=== PATIENT | female | born 1935 | race Caucasian/White ===

== ENCOUNTER → 2017-01-01 | Outpatient (CLI) | payer OTHER ==
[~2017-01-01] MED LIST: ANAS1TAB19 PO; AREDS PRESERVISION PO; ASPEC81 PO; ASPI81TA28 PO; CHOL100027 PO; CLTP PO; CYAN100T6 PO; CYAN1SUB6 UT; GLUC250C PO; GLUCCAP4 PO; LOSA50TA6 PO; MULT-190 PO; MULT-506 PO; NAPR250T2 PO; OYST500T47 PO; SIMV20TA5 PO
--- NOTE | 2017-01-01 15:19 | MAMMOGRAPHY REPORT ---
BILATERAL DIGITAL DIAGNOSTIC MAMMOGRAM TOMOSYNTHESIS WITH CAD AND TARGETED RIGHT ULTRASOUND: 01/01/2017 CLINICAL HISTORY: History of right breast cancer status post lumpectomy and radiation therapy approxi mately 5 years ago. The patient reports a palpable lump for the past 2 years, which she believes may be increased in size for the last few months. She had a fine-needle aspiration of the lump in the athology department December 2015 which yielded benign tissue without evidence of malignancy. TECHNIQUE: Breast tomosynthesis in addition to standard 2D mammography was performed. Current study was also evaluated with a Computer Aided Detection (CAD) system. Bilateral CC and MLO 2-D and tomosy nthesis images were obtained. COMPARISON: Comparison is made to exams dated: 01/30/2016 mammogram, 12/20/2015 mammogram, 01/27/2015 zheng mogram, 01/18/2014 mammogram, 01/25/2014 ultrasound, and 01/07/2013 mammogram - [facility]. BREAST COMPOSITION: There are scattered areas of fibroglandular density in both breasts. FINDINGS: A triangle marker melendez the site of the palpable lump in the right upper outer quadrant. There are no suspicious masses or other suspicious mammographic abnormalities seen in this region. T here are stable postsurgical changes in the right upper outer quadrant from prior lumpectomy. Additi onally, there is stable mild diffuse right breast skin thickening which is likely a sequela of prior radiation therapy. The remainder of both breasts are stable compared to prior exams, without suspicious masses, calcific ations, or areas of architectural distortion noted. Targeted ultrasound was performed of the area of the palpable lump pointed out by the patient. The l ump is a large area of the right breast extending from the 9 to 1:00 breast. No suspicious masses or other suspicious sonographic abnormalities are evident. There are post surgical changes in the righ t 10 to 11:00 breast at the lumpectomy bed. Additionally, there is mild diffuse hyperechogenicity of the breast parenchyma and mild diffuse right breast skin thickening in this region, which is likely a sequela of radiation therapy. IMPRESSION: ACR BI-RADS CATEGORY 2: BENIGN, TARGETED ULTRASOUND ACR BI-RADS CATEGORY 2: BENIGN No suspicious mammographic or sonographic abnormality at the site of the palpable right breast lump p ointed out by the patient. Given the lack of abnormality on imaging and given that a fine-needle asp iration was previously performed of the lump, it is likely benign and may represent evolving post marko atment changes. There is no mammographic or targeted sonographic evidence of malignancy. Recommend clinical follow-up for the palpable right breast lump; any decision to repeat a biopsy should be base d on clinical grounds. Otherwise, recommend routine bilateral screening mammograms in one year. The patient has been verbally notified of the results. Approximately 10% of breast cancers are not detected with mammography. A negative mammographic report should not delay biopsy if a clinically suggestive mass is present. Clari Golden M.D. ah/:01/01/2017 12:19:48 Reports Analyst: Denise GONSALEZ(Lucio)(M), [facility] letter sent: Normal 1/2 BI-RADS Code: ACR BI-RADS Category 2: Benign Ultrasound BI-RADS: ACR BI-RADS Category 2: Benign
== END | disposition home or self-care (01) ==
LOC: C.MAMM 10:02
PROVIDERS: ATTEND Family Medicine
DX: N63 Unspecified lump in breast (principal); Z85.3 Personal history of malignant neoplasm of breast; Z92.3 Personal history of irradiation

== ENCOUNTER 2017-01-19 18:13 | Emergency (ER) | payer OTHER ==
[~2017-01-19] VITALS: Ht 157.5 cm; Wt 73.8 kg
[~2017-01-19 18:13] MED LIST changes: -ASPI81TA28 PO; -CYAN1SUB6 UT; -GLUC250C PO; -MULT-190 PO; -MULT-506 PO; -NAPR250T2 PO; -OYST500T47 PO
[2017-01-19 18:16] VITALS: TEMP 36.6; Ht 157.5 cm; Wt 73.8 kg
--- NOTE | 2017-01-19 18:46 | EMERGENCY ROOM VISIT NOTE ---
History Report prepared by aNtaliia: Ning Veloz Under the Supervision of: Dr. Pierre Angeles D.O. First contact with patient: 18:22 Chief Complaint: HYPERTENSION Stated Complaint: LEFT EYE REDNESS, PAIN History of Present Illness The patient is an 81 year old female who presents to the Emergency Room with complaints of persistent left eye pain that began prior to arrival. She currently rates her discomfort as a 3/10 in severity. The patient states that one hour ago she was watching TV and began noticing left eye pain. She states that she noticed increased pain with pressing on her eyelid. The patient states that she looked in the mirror and found that her left eye was injected. She states that it additionally hurts to look to the right. The patient denies ever having this in the past. She states that she was outside today rearranging dried arrangements, but was not wearing gloves. The patient reports a slight headache and pressure in her neck. She denies any visual problems. The patient denies any history of glaucoma or ever being screened for it in the past. She reports a history of hypertension, high cholesterol, and breast cancer. The patient denies any nausea, vomiting, or pain or swelling in her lower extremities. She states that she does have a history of age related macular degeneration. Source of History: patient Onset: prior to arrival Position: eye (left) Symptom Intensity: 3/10 Timing: other (persistent) Modifying Factors (Worsening): other (pressing on eyelid) Associated Symptoms: + headache, + neck pain, No nausea, No vomiting Note: Associated Symptoms: injected left eye Review of Systems See HPI for pertinent positives & negatives. A total of 10 systems reviewed and were otherwise negative. Past Medical & Surgical Medical Problems: (1) Benign neoplasm of colon (2) Breast cancer (3) Dyslipidemia (4) Venous insufficiency Surgical Problems: (1) H/O colonoscopy (2) H/O esophagogastroduodenoscopy (3) H/O partial mastectomy (4) S/P appendectomy (5) S/p laparoscopy with fulguration of oviducts (6) S/P right oophorectomy (7) S/P tonsillectomy and adenoidectomy Family History FH: cancer FH: diabetes mellitus FH: hypertension FH: lung disease FH: seizures FHx: heart disease Social History Smoking Status: Never Smoker Alcohol Use: none Drug Use: none Marital Status: Housing Status: lives with family Occupation Status: employed Current/Historical Medications Scheduled Anastrozole (Arimidex), 1 MG PO DAILY Aspirin (Aspirin Ec), 81 MG PO DAILY Cholecalciferol (Vitamin D 1000 Unit), 1,000 INTER.UNIT PO DAILY Cyanocobalamin (B-12), 2,500 MCG UT DAILY Glucosamine-Chondroitin (Glucosamine/Chondroitin), 1 CAP PO BID Losartan Potassium (Cozaar), 50 MG PO DAILY Multivitamin (Multivitamin), 1 TAB PO DAILY Ocuvite Preservision (Ocuvite Preservision), 1 TAB PO DAILY Oyster Shell (Calcium), 500 MG PO DAILY Simvastatin (Zocor), 20 MG PO QPM Scheduled PRN Naproxen (Naprosyn), 250 MG PO BIDM PRN for Pain Allergies Coded Allergies: No Known Allergies (Verified , 10/09/15) Physical Exam Vital Signs Date Time Temp Pulse Resp B/P (MAP) Pulse Ox O2 Delivery O2 Flow Rate FiO2 01/19/17 19:45 70 16 169/89 98 01/19/17 18:16 36.6 78 18 193/109 97 Room Air 177/94 Physical Exam GENERAL: Patient is awake, alert, and in no acute distress. Patient is resting comfortably and showing no signs of anxiety EYES: The pupils are equal, round and reactive. No pain with pupil exam, significant chemosis and injection on lateral aspect of the left eye. EARS, NOSE, MOUTH AND THROAT: The nose is without any evidence of any deformity. Mucous membranes are moist tongue is midline NECK: The neck is nontender and supple. RESPIRATORY: Normal respiratory effort is noted there is no evidence of wheezing rhonchi or rales CARDIOVASCULAR: Regular rate and rhythm noted there no murmurs rubs or gallops normal S1 normal S2 GASTROINTESTINAL: The abdomen is soft. Bowel sounds are present in all quadrants. Abdomen is nontender MUSCULOSKELETAL/EXTREMITIES: There is no evidence of gross deformity full range of motion is noted in the hips and shoulders SKIN: There is no obvious evidence of any rash. There are no petechiae, pallor or cyanosis noted. NEUROLOGIC: Patient is awake alert and oriented x3 strength is symmetric patellar reflexes are 2+ bilaterally Medical Decision & Procedures Medications Administered Medications (Trade) Dose Ordered Sig/Jose Route Start Time Stop Time Status Last Admin Dose Admin Ciprofloxacin HCl (Ciloxan 0.3% Op Oint) 1 appln NOW ONCE OP 01/19/17 19:00 01/19/17 19:01 DC 01/19/17 19:00 1 APPLN Procedure Slit Lamp Examination Indication:left eye pain The left eye was prepped with topical proparacaine. Slit lamp examination was performed in the standard fashion. Cornea appeared clear. Anterior chamber clear. Lateral aspect of the left eye with significant Chemosis noted. No discharge present. Fluorescein examination performed and revealed no uptake on the cornea. No foreign bodies noted. Negative Luly sign. The patient tolerated the procedure well without complication. Puff thermometer revealed 18 for the right eye and left eye revealed 19, 22, and 25. ED Course 1825: The patient was evaluated in room B7. A complete history and physical examination were performed. 1851: I discussed the patients case with Dr. Peterson, Ophthalmology. He recommends an eye ointment and follow-up tomorrow. 1899: Ordered Ciprofloxacin HCl 1 appln OP. I reevaluated the patient and she is resting comfortably. I discussed the exam findings with her and I discussed the treatment plan. She verbalized complete understanding and agreement. She is ready to go home. Medical Decision Nursing notes reviewed. Differential diagnosis this patient could include chemical conjunctivitis allergic conjunctivitis infectious component foreign body glaucoma and other differential diagnoses were considered. The patient is an 81-year-old female who presented to the emergency department for an evaluation of pain in her left eye. The patient did not have proptosis. She does appear to have a physical exam consistent with a chemosis of the left eye. She was working outside today but does not remember any specific trauma or foreign body. Her exam did reveal an elevation in her intraocular pressure as well as significant chemosis on the lateral aspect of the left eye. I discussed her case with the on-call ground mixer. At this time he is recommended an eye ointment as well as follow-up in the office tomorrow for reevaluation. I did warn the patient that this could include her entire 5 by the time she wakes up tomorrow. She was also encouraged to try using ice pack. She was found have an elevated blood pressure but I think this could be situational. She was encouraged to continue all medications as prescribed and follow-up for blood pressure check with her family doctor soon as possible. Medication Reconcilliation Current Medication List: was personally reviewed by me Blood Pressure Screening Patient's blood pressure: Elevated blood pressure Blood pressure disposition: Referred to PCP Consults Time Called: 1841 Consulting Physician: Dr. Peterson, Ophthalmology Returned Call: 1851 I discussed the patients case with Dr. Peterson, Ophthalmology. He recommends an eye ointment and follow-up tomorrow. Impression Primary Impression: Conjunctivitis Additional Impressions: Left eye pain Chemosis Scribe Attestation The scribe's documentation has been prepared under my direction and personally reviewed by me in its entirety. I confirm that the note above accurately reflects all work, treatment, procedures, and medical decision making performed by me. Departure Information Dispostion Home / Self-Care Referrals Cheri Barakat M.D. (PCP) Blade Peterson D.O. Forms HOME CARE DOCUMENTATION FORM, IMPORTANT VISIT INFORMATION, WORK / SCHOOL INSTRUCTIONS Patient Instructions ED Conjunctivitis Nonspecific, [facility] Additional Instructions Call the ground mixer in the morning to schedule a follow-up appointment for tomorrow. Continue to use the eye ointment 3 times a day. Ask the ground mixer that he once he to stay on this medication because she will need a prescription. Continue all other medications as prescribed. Try using an ice pack to the left eye. Return to the emergency department immediately if symptoms change worsen or the need arises. Problem Qualifiers Primary Impression: Conjunctivitis Conjunctivitis type: unspecified Laterality: left Qualified Codes: H10.9 - Unspecified conjunctivitis Additional Impressions: Chemosis Laterality: left Qualified Codes: H11.422 - Conjunctival edema, left eye
[2017-01-19] MEDS ORDERED: CIPROFLOXACIN HCL 3.5 GM TUBE OP ONE (19:00)
[2017-01-19] MEDS ORDERED: ASPI81TA28 PO (19:10)
[2017-01-19] MEDS ORDERED: NAPR250T2 PO (19:11)
[2017-01-19] MEDS ORDERED: CYAN1SUB6 UT (19:11)
[2017-01-19] MEDS ORDERED: GLUC250C PO (19:11)
[2017-01-19] MEDS ORDERED: MULT-190 PO (19:11)
[2017-01-19] MEDS ORDERED: OYST500T47 PO (19:11)
[2017-01-19 19:45] VITALS: BP 169/89; PULSE 70; O2SAT 98
[2017-01-19] MEDS ORDERED: MULT-506 PO (20:44)
== END 2017-01-19 19:45 | disposition home or self-care (01) ==
LOC: C.EDB 18:15
DX: H10.9 Unspecified conjunctivitis (principal); H57.12 Ocular pain, left eye; H11.422 Conjunctival edema, left eye; I10 Essential (primary) hypertension; E78.00 Pure hypercholesterolemia, unspecified; Z85.3 Personal history of malignant neoplasm of breast; H35.30 Unspecified macular degeneration; E78.5 Hyperlipidemia, unspecified; I87.2 Venous insufficiency (chronic) (peripheral); Z79.82 Long term (current) use of aspirin; Z79.899 Other long term (current) drug therapy; Z80.9 Family history of malignant neoplasm, unspecified; Z83.3 Family history of diabetes mellitus; Z82.49 Family history of ischemic heart disease and other diseases of the circulatory system; Z83.6 Family history of other diseases of the respiratory system

== ENCOUNTER 2017-05-20 08:25 | Inpatient (IN) | payer OTHER ==
[2017-04-23 13:57] VITALS: BMI 29.0
--- NOTE | 2017-04-23 14:34 | PAT Medication Instructions ---
Service Date Apr 23, 2017. Current Home Medication List Alendronate Sodium (Fosamax), 1 TAB PO WK Aspirin (Aspirin Ec), 81 MG PO QPM Calcium Carbonate (Calcium), 1 TAB PO QPM Cholecalciferol (Vitamin D3), 1 TAB PO QPM Cyanocobalamin (Vitamin B-12), 1 TAB PO QPM Glucosamine-Chondroitin (Glucosamine/Chondroitin), 1 CAP PO QPM Losartan Potassium (Cozaar), 50 MG PO QPM Multivitamin (Multivitamin), 1 TAB PO QPM Naproxen (Naprosyn), 250 MG PO DAILY PRN for Pain Ocuvite Preservision (Ocuvite Preservision), 1 TAB PO QPM Simvastatin (Zocor), 20 MG PO QPM Medication Instructions For Your Scheduled Surgery - Hold the following medications 2 weeks prior to surgery: Glucosamine-Chondroitin (Glucosamine/Chondroitin), 1 CAP PO QPM - Continue as directed: Alendronate Sodium (Fosamax), 1 TAB PO WK - Hold the following medications the morning of surgery: Naproxen (Naprosyn), 250 MG PO DAILY PRN for Pain (otherwise okay to continue per surgeon) - Take the following medications as scheduled the night before surgery: Ocuvite Preservision (Ocuvite Preservision), 1 TAB PO QPM Simvastatin (Zocor), 20 MG PO QPM Multivitamin (Multivitamin), 1 TAB PO QPM Aspirin (Aspirin Ec), 81 MG PO QPM Calcium Carbonate (Calcium), 1 TAB PO QPM Cholecalciferol (Vitamin D3), 1 TAB PO QPM Cyanocobalamin (Vitamin B-12), 1 TAB PO QPM - Do not take the following medications the night before surgery: Losartan Potassium (Cozaar), 50 MG PO QPM *Nothing to eat or drink after midnight* If you have any questions please call us at [phone] or [phone] or [phone]
[2017-04-23 14:52] LABS: BASO % 0.1 %; BASO ABS # 0.01 K/uL (0-0.2); EOS % 2.9 %; EOS ABS # 0.23 K/uL (0-0.5); HEMATOCRIT 40.3 % (37-47); HEMOGLOBIN 13.7 g/dL (12.0-16.0); IG# 0.02 K/uL (0.00-0.02); LYMPH % 26.8 %; LYMPH ABS # 2.13 K/uL (1.2-3.4); MEAN CELL VOLUME 94.6 fL (80-100); MEAN CORPUSCULAR HEMOGLOBIN 32.2 pg (25-34); MEAN PLATELET VOLUME 10.3 fL (7.4-10.4); MONO % 7.3 %; MONO ABS # 0.58 K/uL (0.11-0.59); NEUT % 62.6 %; NEUT ABS # 4.98 K/uL (1.4-6.5); PLATELET COUNT 248 K/uL (130-400); RED CELL DISTRIBUTION WIDTH CV 12.2 % (11.5-14.5); RED CELL DISTRIBUTION WIDTH SD 41.4 fL (36.4-46.3); WHITE BLOOD COUNT 7.95 K/uL (4.8-10.8)
[2017-04-23 15:03] LABS: PTT PATIENT 26.4 SECONDS (21.0-31.0)
--- NOTE | 2017-04-23 15:14 | DIAGNOSTIC IMAGING REPORT ---
CHEST 2 VIEWS ROUTINE CLINICAL HISTORY: pat preoperative evaluation COMPARISON STUDY: 10/09/2015 FINDINGS: The bones soft tissues and hemidiaphragms are normal. The cardiomediastinal silhouette is normal. The lungs are clear. The pulmonary vasculature is normal. Fixed hiatal hernia IMPRESSION: Fixed lateral hernia. Otherwise negative chest. The above report was generated using voice recognition software. It may contain grammatical, syntax or spelling errors. Electronically signed by: Isac Rosen M.D. 04/23/2017 3:13 PM Dictated Date/Time: 04/23/2017 3:12 PM
[2017-04-23 15:32] LABS: CALCIUM 9.6 mg/dl (8.5-10.1); CREATININE 1.17 mg/dl (0.60-1.20); POTASSIUM 4.1 mmol/L (3.5-5.1)
--- NOTE | 2017-05-15 22:47 | HISTORY & PHYSICAL EXAMINATION ---
DATE OF ADMISSION: 05/20/2017 CHIEF COMPLAINT: Right hip pain. HISTORY OF PRESENT ILLNESS: The patient is an 82-year-old female who presents for surgical treatment of the right hip. She has a several year history of increasing right hip pain and discomfort that has gotten significantly worse over the past year. She describes mostly groin pain and thigh pain. This really started to limit her activities. She has trouble walking around the house due to her pain. Denies any back pain. No numbness. She takes Meloxicam with minimal relief. She intermittently uses a cane to get around. PAST MEDICAL HISTORY: 1. Hypertension. 2. Sleep apnea. 3. Hiatal hernia. 4. Mild obesity with BMI of 30. 5. Low back pain/sciatica. 6. Breast cancer status post lumpectomy without recurrence. PAST SURGICAL HISTORY: Include: 1. Tonsillectomy. 2. Appendectomy. 3. Right oophorectomy. 4. D&C. 5. Breast lumpectomy. ALLERGIES: None. CURRENT MEDICINES: Include: 1. Meloxicam once a day. 2. Zocor 20 mg. 3. Vitamin B12. 4. Arimidex 1 mg a day. 5. Ocuvite PreserVision. 6. Multivitamin. 7. Vitamin D. 8. Aspirin. 9. Calcium. SOCIAL HISTORY: An 82-year-old white female. Lives in [place]. She is . Three children. Rare alcohol intake. FAMILY HISTORY: Significant for heart disease, lung cancer, breast cancer, brain cancer, eye cancer, uterine cancer, skin cancer. REVIEW OF SYSTEMS: Negative for diabetes, neurologic problems, vascular problems, bleeding disorders. Denies any chest pain or shortness of breath. No history of DVT or PE. She does have a history of breast cancer, but in remission. PHYSICAL EXAMINATION: GENERAL: This is a pleasant elderly female. She looks to be in pretty good health. HEENT: Benign. NECK: Supple. No lymphadenopathy. LUNGS: Clear to auscultation. HEART: Regular rate and rhythm. ABDOMEN: Soft, nontender, nondistended. EXTREMITIES: Grossly neurovascularly intact except as follows: Examination of the right hip and leg reveals the patient walks with antalgic gait. Leg lengths clinically appear equal. She does have some significant pain with any type of hip motion. She can internally rotate to about 10 degrees. External rotation 25 degrees. Negative straight leg raise. X-RAYS: X-rays of the right hip were reviewed. It shows advanced right hip DJD. It has progressed significantly over the past year. Bone density looks good. She has osteophytes around the acetabulum. ASSESSMENT: An 82-year-old white female with advanced right hip degenerative joint disease that has gotten significantly worse over the past year both clinically and radiographically. She has failed conservative treatment and would like to have her right hip replaced. PLAN: We are going to proceed with right total hip replacement. The risks and benefits of this procedure were explained to the patient including but not limited to DVT, PE, , infection, neurologic injury, vascular injury, bleeding problem, pain, limited range of motion, stiffness, failure to relieve her symptoms, incomplete relief of symptoms, need for further surgery in the future, fracture, leg length inequality, nerve palsy, etc. The patient understands and desires to proceed. Informed consent was obtained. As far as discharge plans, she is hoping to go to rehab or a nursing home facility. Her is not in great health and probable not good clinical research assistant to help take care of her.
[2017-05-20] VITALS (19 sets, daily range): BP systolic 117–167; BP diastolic 69–96; PULSE 60–91; TEMP 36.2–37.1; O2SAT 93–100; Ht 157.5 cm; Wt 86.2 kg
[~2017-05-20] VITALS: Ht 157.5 cm; Wt 86.2 kg
[~2017-05-20 08:25] MED LIST changes: +ACETAMINOPHEN 500 MG TAB PO SCH; +ALEN70TA4 PO; -ANAS1TAB19 PO; -AREDS PRESERVISION PO; -ASPEC81 PO; +ASPI81TA28 PO; +BUPIVACAINE 0.5 % 5 MG/1 ML PF 10ML VIAL ONE; +BUPIVACAINE LIPOSOME 266 MG, BUPIVACAINE/EPINEPHRINE INJ 50 ML, SODIUM CHLORIDE 0.9% PF... INFIL SCH; +CALC-393 PO; +CEFAZOLIN 2000MG IV PUSH 10 ML IV SCH; -CHOL100027 PO; +CHOLCAP5 PO; -CLTP PO; -CYAN100T6 PO; +CYAN5000 PO; +FAMOTIDINE 20 MG TAB PO SCH; +GABAPENTIN 300 MG CAP PO SCH; +GLUC250C PO; -GLUCCAP4 PO; +LACTATED RINGER'S 1000ML 1,000 ML IV SCH; +LACTATED RINGER'S 1000ML 500 ML IV SCH; +LACTATED RINGER'S 1000ML IV SCH; +METOCLOPRAMIDE HCL 10 MG TAB PO SCH; +MULT-190 PO; +MULT-506 PO; +NAPR1TAB48 PO; +SCOPOLAMINE 1.5 MG TDSY TD SCH; +TRANEXAMIC ACID INJ 1,000 MG in SYRINGE 0 ML IV SCH
--- NOTE | 2017-05-20 08:39 | History & Physical Bridge Note ---
H&P Re-Evaluation Bridge Note: I have examined the patient, reviewed the History & Physical and in the interval since the performance of the History & Physical I have noted the following changes of clinical significance: No changes noted
[2017-05-20] MEDS ORDERED: FENTANYL CITRATE INJ 50 MCG/1 ML 2 ML VIAL ONE (09:47)
[2017-05-20] MEDS ORDERED: MIDAZOLAM HCL 1 MG/ML 2ML VIAL ONE (09:47)
[2017-05-20] MEDS ORDERED: PROPOFOL IV EMULSION 10 MG/ML 20 ML VIAL IV ONE (09:47)
[2017-05-20] MEDS ORDERED: LIDOCAINE HCL 2% 2 ML VIAL (20MG/ML) ONE (09:47)
[2017-05-20] MEDS ORDERED: BACITRACIN 50000 UNIT VIAL ONE (10:46)
[2017-05-20] MEDS ORDERED: BUPIVACAINE/EPINEPHRINE 0.5% MPF 1:200,000 30 ML VIAL ONE (10:46)
[2017-05-20] MEDS ORDERED: NALOXONE HCL INJ 1 MG in SODIUM CHLORIDE 0.9% 1000ML 1,000 ML IV PRN ×4 (11:07)
[2017-05-20] MEDS ORDERED: SODIUM CHLORIDE 0.9% 1000ML 1,000 ML IV PRN (11:07)
[2017-05-20] MEDS ORDERED: LACTATED RINGER'S 1000ML 500 ML IV PRN (11:07)
[2017-05-20] MEDS ORDERED: NALOXONE HCL INJ 0.08 MG in SYRINGE 1.8 ML IV PRN (11:07)
[2017-05-20] MEDS ORDERED: PHENYLEPHRINE 100MCG/ML 5ML SYR IV PRN (11:15)
[2017-05-20] MEDS ORDERED: NO NARCOTICS OR SEDATIVES SCH (11:15)
[2017-05-20] MEDS ORDERED: NALOXONE HCL 0.4 MG/1 ML VIAL/CARP IV PRN (11:15)
[2017-05-20] MEDS ORDERED: ATROPINE SULFATE 0.1 MG/ML 5ML SYR IV PRN (11:15)
[2017-05-20] MEDS ORDERED: KETOROLAC TROMETHAMINE 15 MG/ML VIAL IV. PRN ×2 (11:15)
[2017-05-20] MEDS ORDERED: PROMETHAZINE HCL INJ 12.5 MG in SODIUM CHLORIDE 0.9% 50ML 50 ML IV PRN (11:15)
[2017-05-20] MEDS ORDERED: NALBUPHINE HCL INJ 10 MG/ML 1ML AMP IV PRN (11:15)
[2017-05-20] MEDS ORDERED: MEPERIDINE HCL 25 MG/ML CARP IV PRN ×2 (11:15)
[2017-05-20] MEDS ORDERED: EpHEDrine SULFATE INJ 50 MG/ML AMP IV PRN ×2 (11:15)
[2017-05-20] MEDS ORDERED: MoRPHine SULFATE PF 1 MG/ML 10 ML AMP/VIAL EPI PRN (11:15)
[2017-05-20] MEDS ORDERED: ONDANSETRON INJ 2 MG/ML 2 ML VIAL IV PRN ×2 (11:15)
[2017-05-20] MEDS ORDERED: DiphenhydrAMINE HCL 50 MG/ML VIAL IV PRN (11:15)
--- NOTE | 2017-05-20 12:37 | [facility] Post Operative Brief Note ---
Immediate Operative Summary Operative Date May 20, 2017. Pre-Operative Diagnosis Advanced Right Hip Degenerative Joint Disease Post-Operative Diagnosis Advanced Right Hip Degenerative Joint Disease Procedure(s) Performed Right Total Hip Arthroplasty, Uncemented Surgeon Dr. Cesar Fong Supervisor Cab Surgeon(s) Maverick De La Vega PA-C Estimated Blood Loss 200ML Findings Right Hip DJD Fluids (cc crystalloids) 700 cc Specimens Permanent Solution: A. Right Femoral Head Drains None Anesthesia Spinal Complication(s) None Disposition Recovery Room / PACU
[2017-05-20] MEDS ORDERED: SILVER SULFADIAZINE 1% CR 50 GM JAR EXT PRN (12:45)
[2017-05-20] MEDS ORDERED: MAGNESIUM HYDROXIDE SUSP 30 ML UDC PO PRN (12:45)
[2017-05-20] MEDS ORDERED: ALUMINUM/MAGNESIUM/SIMETH (MAALOX MAX) 30 ML UDC PO PRN (12:45)
--- NOTE | 2017-05-20 13:07 | DIAGNOSTIC IMAGING REPORT ---
R PELVIS/UNILATERAL HIP 1 VIEW CLINICAL HISTORY: 82 years-old Female presenting with IN PACU - A/P PELVIS and LATERAL HIP INCLUDING ALL OF IMPLANT. TECHNIQUE: Single frontal view of the pelvis and crosstable lateral view of the right hip were obtained. COMPARISON: 02/21/2017. FINDINGS: There has been interval total right hip arthroplasty. No hardware complication. No malalignment. No periprosthetic fracture. Expected soft tissue emphysema and overlying skin rachna. Left hip joint congruent. Mild degenerative changes suggested in the left hip joint. Bony pelvis intact IMPRESSION: Expected postoperative appearance status post total right hip arthroplasty. Electronically signed by: Danial Mcclellan M.D. 05/20/2017 1:06 PM Dictated Date/Time: 05/20/2017 1:05 PM
--- NOTE | 2017-05-20 13:08 | OPERATIVE REPORT ---
DATE OF OPERATION: 05/20/2017 SURGEON: Dr. Cesar Fong. SNOUT PULLER: YAA Grace PREOPERATIVE DIAGNOSIS: Right hip degenerative joint disease. POSTOPERATIVE DIAGNOSIS: Same. PROCEDURE PERFORMED: Right uncemented total hip arthroplasty. COMPLICATIONS: None. ESTIMATED BLOOD LOSS: 200 mL FLUID REPLACEMENT: 1700 mL crystalloid fluid replacement. ANESTHESIA: Spinal. DRAINS: None. SPECIMENS: Right femoral head sent for pathology. OPERATIVE INDICATIONS: The patient is an 82-year-old fairly active, independent female who has had a several-year history of right hip pain and discomfort that has gotten significantly worse over the past year. She had mostly groin and thigh pain. She had failed conservative treatment. She elected to proceed with total hip arthroplasty. OPERATIVE FINDINGS: Operative findings revealed advanced right hip DJD. 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 Moderate-sized joint effusion. Some moderate synovitis. OPERATIVE IMPLANTS: Operative implants consisted of: 1. Biomet G7 size 50 mm acetabular shell. 2. An apex hole eliminator. 3. A 6.5 cancellous acetabular screws x1 of 35 mm in length. 4. A highly cross-linked polyethylene liner with 50 mm outer diameter and a 32 mm inner diameter. 5. A DePuy size 12 small AML femoral stem. 6. A +5/32 mm metal articular ball. OPERATIVE PROCEDURE: The patient was taken to the operating room, identified and placed on the operating table in the supine position. All contact areas were appropriately padded. IV antibiotics provided by anesthesia team. A spinal anesthetic had been implemented in the holding area. Caputo catheter was placed in the sterile fashion. The patient was then placed in the left lateral decubitus position. An axillary roll was placed. [facility] was used for positioning. Right hip and leg were then prepped and draped in the usual sterile fashion. A posterolateral approach to the right hip was then performed through a curvilinear incision centered over the greater trochanter. Sharp dissection was carried out through the subcutaneous tissues down to the level of the IT band and gluteal fascia. The IT band and gluteal fascia were then incised longitudinally in line with the skin incision. The underlying greater trochanteric bursa was excised. The piriformis and external rotators were tagged and taken off the posterior aspect of the femur. Great care was taken throughout the procedure to protect the sciatic nerve at all times. Posterior capsulotomy was then performed leaving a large flap for later repair. Hip was internally rotated and dislocated. Femoral neck osteotomy cut was made with the final cut about 11 mm above the lesser trochanter. Femoral head was removed and sent for pathology. The femur was retracted anteriorly. Attention was then drawn to the acetabulum. The acetabular labrum was excised. The pulvinar fat was excised. Sequential reaming of the acetabulum was then performed beginning with a size 43 and progressing up to a 49. A 50 mm Biomet G7 acetabular shell was then placed in about 40 degrees of lateral opening and 20 degrees of anteversion. It was fixed with a single 6.5 cancellous acetabular screw. I did try to place the second screw posteriorly, but could not get it seated down in the cup, so I just removed it. We got good purchase with the previous screw as well as interference fit with impaction. A trial liner was placed. Attention was then drawn to the femur. The proximal femur was entered with a cookie cutter followed by canal finder and lateralizing reamer. Sequential reaming of the femur was then performed beginning with a size 9 and progressing up to an 11.5. We got pretty good chatter at an 11.5. I broached beginning with a size 10.5 small broach and progressing up to a 12 small broach. We got pretty good fit with this. A calcar reamer was used to smoothen off the calcar. The hip was then trialed and the +5 articular ball provided full stability and full extension and external rotation and flexion to 90 degrees and internal rotation to 50+ degrees. I elected to use these implants. All trial implants were removed. An apex hole eliminator was placed. A highly cross-linked polyethylene liner was placed. A 12 small AML femoral stem was impacted in position. A +5/32 mm metal articular ball was placed. Hip was once again located and found to be stable. Attention was then drawn toward closing. The wound was irrigated with copious amounts of pulsatile lavage solution. I did inject locally with 60 mL of 0.5% Marcaine with epinephrine. The posterior capsule and external rotators were then repaired through drill holes and the posterior trochanter with #2 Ti-Cron suture. The IT band and gluteal fascia were then closed with #1 PDS suture in running fashion. The subcutaneous tissues were then closed in 2 layers with a deep layer 0 Vicryl suture, and the subcutaneous tissue with 2-0 Dexon suture in a buried interrupted fashion. The skin was then closed with skin rachna. Leg was then cleaned and dried and a sterile dressing of Xeroform, 4 x 4's, sterile ABD pad and foam tape was applied. The patient was then transferred to the recovery room in stable condition. The patient tolerated the procedure well with no complications. All needle and sponge counts were correct at the end of the operation. I attest to the content of the Intraoperative Record and any orders documented therein. Any exception s are noted below.
--- NOTE | 2017-05-20 13:22 | Anesthesiology Progress Note ---
Anesthesia Post Op Note Date & Time May 20, 2017 at 13:22 Vital Signs Pain Intensity: 0 Vital Signs Past 12 Hours Date Time Temp Pulse Resp B/P (MAP) Pulse Ox O2 Delivery O2 Flow Rate FiO2 05/20/17 13:15 83 21 146/60 97 Nasal Cannula 2 05/20/17 13:05 71 19 143/62 97 Nasal Cannula 2 05/20/17 12:55 74 18 140/59 100 Oxymask 10 05/20/17 12:45 68 16 151/64 100 Oxymask 10 05/20/17 12:38 36.6 73 20 82/63 98 Oxymask 10 05/20/17 08:47 78 16 167/96 95 Room Air Notes Mental Status: alert / awake / arousable, participated in evaluation Pt Amnestic to Procedure: Yes Nausea / Vomiting: adequately controlled Pain: adequately controlled Airway Patency, RR, SpO2: stable & adequate BP & HR: stable & adequate Hydration State: stable & adequate Anesthetic Complications: no major complications apparent
[2017-05-20] MEDS: D5W AND 1/2NSS + 20MEQ KCL 1,000 ML IV SCH (15:17)
[2017-05-20] MEDS: ACETAMINOPHEN 500 MG TAB PO SCH ×2 (15:18→21:43)
[2017-05-20] MEDS: CHECK SCOPOLAMINE PATCH PLACEMENT SCH ×2 (15:20→23:58)
[2017-05-20] MEDS: FERROUS GLUCONATE 324 MG TAB PO SCH (17:36)
[2017-05-20] MEDS ORDERED: TRANEXAMIC ACID INJ 1,000 MG in SODIUM CHLORIDE 0.9% 100ML 100 ML IV ONE (19:00)
[2017-05-20] MEDS: CEFAZOLIN IV 1,000 MG in SYRINGE 0 ML IV SCH (20:09)
[2017-05-20] MEDS: DOCUSATE SODIUM 100 MG CAP PO SCH ×2 (21:00→21:15)
[2017-05-20] MEDS: SENNA 8.6 MG TAB PO SCH ×2 (21:00→21:15)
[2017-05-20] MEDS ORDERED: CEROVITE ADV FORMULA TAB PO SCH (21:00)
[2017-05-20] MEDS: MULTIVITAMIN TAB PO SCH ×2 (21:00→21:14)
[2017-05-20] MEDS: CALCIUM 600MG + VIT D 400 IU TAB PO SCH ×2 (21:00→21:16)
[2017-05-20] MEDS: CHOLECALCIFEROL 1000 INTER.UNIT TAB PO SCH (21:14)
[2017-05-20] MEDS: SIMVASTATIN 20 MG TAB PO SCH (21:15)
[2017-05-20] MEDS: CYANOCOBALAMIN 2,500 MCG SUBL TAB PO SCH (21:15)
[2017-05-20] MEDS: ASPIRIN 325 MG ECTAB PO SCH (21:15)
[2017-05-20] MEDS: LOSARTAN POTASSIUM 50 MG TAB PO SCH (21:16)
[2017-05-20] MEDS ORDERED: ULT50X PO (21:38)
[2017-05-20] MEDS ORDERED: ACET-24 PO (21:38)
[2017-05-20] MEDS ORDERED: FRRG PO (21:38)
[2017-05-20] MEDS ORDERED: ASPEC325 PO (21:38)
--- NOTE | 2017-05-20 21:41 | Discharge Instructions ---
Discharge Instructions Date of Service May 20, 2017. Admission Reason for Admission: Right Hip Degenerative Joint Disease Discharge Discharge Diagnosis / Problem: Right Hip Replacement Discharge Goals Goal(s): Decrease discomfort, Improve function, Increase independence, Improve disease control, Therapeutic intervention Activity Recommendations Activity Level: Assistance Required (Total Hip Precautions) Therapies: Physical Therapy, Occupational Therapy Weightbearing Status: Right weightbearing . Additional Information Patient informed of condition: Yes Advance Directives: Yes DNR: No Level of Care: Acute Rehab Communicable Disease: No Prognosis: Improving Instructions / Follow-Up Instructions / Follow-Up ACTIVITY RECOMMENDATIONS: Physical Therapy: * Aggressive physical therapy is not usually needed. You will learn to take care of yourself safely and walk. * Follow the "Hip Precautions Instructions." * In some cases, the oncology social work at the hospital will arrange to have a therapist come to your house for the first couple of weeks to help you learn these skills. * You need to practice on your own or with the help of a family member as needed. * When you learn these skills, most of the therapy can be done on your own. Home Exercise: * You were shown a series of exercises in the hospital. Do these exercises three to four times each day including the exercises you were shown in physical therapy. Walking: * Get up and walk several times each day. For the first four weeks, try not to stand or walk for more than one hour at a time. If you do stand or walk for more than one hour, you will not hurt anything, but your leg will likely swell. * As you feel comfortable, you may change from the walker or crutches to a cane and then to independent walking. MEDICATIONS: New Medicine: * You will likely be taking one or more of these medicines: 1. Tramadol - Take, as directed, when you need it, every four to six hours to control your pain. 2. Iron Sulfate - Take three times each day for the month after surgery to help you replace the blood lost during surgery. 3. Aspirin - Thins your blood to lessen the chance of forming a blood clot. * The most common side effects of pain medicine and iron are nausea and constipation. If nausea or constipation is too much of a problem or if you have any questions about your new medicines or doses, call [facility] at . We will try to help you manage these issues. VERY IMPORTANT TO READ AND REVIEW" Pain: * The immediate post-operative period after hip replacement surgery is often quite painful. * You are given a prescription for pain medicine. You should take it, as directed, when you need it, especially before physical therapy and before going to bed. Pain that interferes with sleep is very common and can last several months. * You will likely need pain medicine for the first two to four weeks. It will not stop all of the pain. The pain will lessen and as you feel better, you may change to milder pain medicine such as Tylenol. * The most common side effects of pain medicine are nausea and constipation, so don't take more than you need. SPECIAL CARE INSTRUCTIONS: TEDs/Elastic Stockings: * The white elastic stockings help limit swelling and prevent blood clots from forming in your legs. The more you wear them, the more they work. * Wear them for six weeks. Prevention of Infection: * Take antibiotics one hour before any dental cleaning, dental work, urological procedure, gastrointestinal procedure or any invasive surgery in order to prevent your new joint from getting infected. * You may get the antibiotics from the doctor performing the procedure or you may call our office at before and we will call in a prescription to the pharmacy of your choice. Things to Watch For: * Drainage from the incision site that occurs more than one week after your surgery. * Severely increased leg pain or swelling. * Increased redness at the incision site. * Fever above 102 degrees Fahrenheit. * Unusual chest pain or shortness of breath. * Unusual pain or burning with urination. Call [facility] at with any of the above problems or if you have any questions about your medicines or recovery. FOLLOW UP VISIT: Make an appointment to see your doctor for approximately two weeks after surgery for a progress check and staple removal by calling the office at . Current Hospital Diet Patient's current hospital diet: Regular Diet Discharge Diet Recommended Diet: Regular Diet Procedures Procedures Performed: Right Total Hip Arthroplasty, Uncemented Pending Studies Studies pending at discharge: no Medical Emergencies . Who to Call and When: Medical Emergencies: If at any time you feel your situation is an emergency, please call [phone] immediately. . Non-Emergent Contact Non-Emergency issues call your: Surgeon . . "Provider Documentation" section prepared by Cesar Fong. . Core Measure Problem Core Measures: None
[2017-05-21] VITALS (9 sets, daily range): BP systolic 134–154; BP diastolic 73–80; PULSE 85–95; TEMP 37.2–37.5; O2SAT 91–100
--- NOTE | 2017-05-21 01:19 | NUR ---
ID: Pt is alert and oriented with periods of confusion. Pt on 2 L for hours of sleep.Diet is being tolerated. IVF infusing per MD order in the left AC. Dressing d/c/i. Abductor pillow in place. Caputo intact and patent draining clear yellow urine. Right limb restriction. Pt denies pain. Pt not OOB yet due to lethargy and confusion. Call delarosa within reach. Bed alarm on. Hourly rounding maintained. Discharge uncertain.
[2017-05-21] MEDS: D5W AND 1/2NSS + 20MEQ KCL 1,000 ML IV SCH ×2 (02:53→10:45)
[2017-05-21] MEDS ORDERED: HYDROmorphone INJ 0.5 MG/0.5 ML SYR IV PRN (03:00)
[2017-05-21] MEDS ORDERED: DC INTRASPINAL MORPHINE SCH (03:00)
[2017-05-21] MEDS ORDERED: TRAMADOL HCL 50 MG TAB PO PRN (03:00)
[2017-05-21] MEDS ORDERED: ZOLPIDEM TARTRATE 5 MG TAB PO PRN (03:00)
[2017-05-21] MEDS: CEFAZOLIN IV 1,000 MG in SYRINGE 0 ML IV SCH (04:19)
[2017-05-21 05:38] LABS: BASO % 0.1 %; BASO ABS # 0.01 K/uL (0-0.2); HEMATOCRIT 38.2 % (37-47); HEMOGLOBIN 12.6 g/dL (12.0-16.0); IG# 0.05 K/uL (0.00-0.02); LYMPH % 8.4 %; LYMPH ABS # 1.24 K/uL (1.2-3.4); MEAN CELL VOLUME 94.6 fL (80-100); MEAN CORPUSCULAR HEMOGLOBIN 31.2 pg (25-34); MEAN PLATELET VOLUME 10.5 fL (7.4-10.4); MONO % 7.6 %; MONO ABS # 1.12 K/uL (0.11-0.59); NEUT % 83.6 %; NEUT ABS # 12.31 K/uL (1.4-6.5); PLATELET COUNT 233 K/uL (130-400); RED CELL DISTRIBUTION WIDTH CV 12.4 % (11.5-14.5); RED CELL DISTRIBUTION WIDTH SD 42.6 fL (36.4-46.3); WHITE BLOOD COUNT 14.73 K/uL (4.8-10.8)
[2017-05-21 06:05] LABS: CALCIUM 8.6 mg/dl (8.5-10.1); CREATININE 1.03 mg/dl (0.60-1.20); POTASSIUM 4.6 mmol/L (3.5-5.1)
[2017-05-21] MEDS: ACETAMINOPHEN 500 MG TAB PO SCH ×3 (06:21→21:50)
[2017-05-21] MEDS: KETOROLAC TROMETHAMINE 15 MG/ML VIAL IV. SCH ×3 (06:21→17:52)
[2017-05-21] MEDS: ONDANSETRON INJ 2 MG/ML 2 ML VIAL IV PRN (06:28)
[2017-05-21] MEDS: CHECK SCOPOLAMINE PATCH PLACEMENT SCH ×2 (08:00→16:06)
[2017-05-21] MEDS: ASPIRIN 325 MG ECTAB PO SCH ×2 (08:34→20:50)
[2017-05-21] MEDS: DOCUSATE SODIUM 100 MG CAP PO SCH ×2 (08:34→20:50)
[2017-05-21] MEDS: PANTOprazole SOD 40 MG TAB PO SCH (08:34)
[2017-05-21] MEDS: FERROUS GLUCONATE 324 MG TAB PO SCH ×3 (08:34→17:51)
[2017-05-21] MEDS ORDERED: MULTIVITAMIN TAB PO SCH (09:00)
--- NOTE | 2017-05-21 12:22 | NUR ---
Case Management- Met with patient in room. Patient lives with her and grand daughter in a one story home with one step to enter. She is independent with adls using a bwalker and or a cane to ambulate and still drives. She reports she has a cleaning service coming in every other week. She reports she would like to go to [facility] on discharge referral made to [facility]. LYNETTE following
--- NOTE | 2017-05-21 16:30 | NUR ---
A: pt has not voided since barlow removal. Bladder scan done recently by Angie (ALUMINUM HYDROXIDE PROCESS OPERATOR) for 5ml. Dr. Fong made aware, no new orders. Instructed to encourage fluid intake.
--- NOTE | 2017-05-21 20:45 | NUR ---
A: Pt OOB to bathroom x 1 assist with a walker. While heading into the bathroom I noticed an intact blister on the pt's left buttocks. the area was wiped with a saline wipe, dressed with petroleum gauze, 4x4 and medipore. An alleven was also placed, turn and repo q2hr intervention, and patient was turned on left side.
[2017-05-21] MEDS: SENNA 8.6 MG TAB PO SCH (20:49)
[2017-05-21] MEDS: SIMVASTATIN 20 MG TAB PO SCH (20:49)
[2017-05-21] MEDS: MULTIVITAMIN TAB PO SCH (20:49)
[2017-05-21] MEDS: CHOLECALCIFEROL 1000 INTER.UNIT TAB PO SCH (20:50)
[2017-05-21] MEDS: CALCIUM 600MG + VIT D 400 IU TAB PO SCH (20:51)
[2017-05-21] MEDS: LOSARTAN POTASSIUM 50 MG TAB PO SCH (20:51)
[2017-05-21] MEDS: CYANOCOBALAMIN 2,500 MCG SUBL TAB PO SCH ×2 (20:52→21:01)
--- NOTE | 2017-05-21 22:08 | PROGRESS NOTE ---
DATE: 05/21/2017 SUBJECTIVE: An 82-year-old white female postop day 1 from right total hip replacement. She is doing well. Really not much in the way of pain. Therapy went well. No chest pain or shortness of breath. Not feeling dizzy or lightheaded. OBJECTIVE: VITAL SIGNS: Temperature 37.5. Vital signs stable. GENERAL: A pleasant elderly female. I had to wake her this evening when I visited her. EXTREMITIES: Examination of the right hip and leg reveals, her leg lengths appear equal. The dressing is clean, dry and intact. Thigh is soft and supple. She is neurologically intact. She can dorsiflex and plantar flex her foot appropriately. LABORATORY DATA: Hemoglobin 12.6, hematocrit 38.2. Electrolytes are stable. Creatinine is actually improved at 1.03. ASSESSMENT: An 82-year-old white female postop day 1 from right total hip replacement, doing well. Pain is controlled. She is neurologically intact. Hip is located. PLAN: 1. Deep venous thrombosis prophylaxis including thigh-high TEDs, SCDs, and aspirin twice a day. 2. PT/OT. Weightbearing as tolerated. Right total hip protocol. 3. Pain control. Doing well with current pain regimen. We are going to try and limit narcotics to avoid issues with confusion. 4. Disposition: She is hoping to be discharged to rehab. Social service is working on this.
[2017-05-22] MEDS: KETOROLAC TROMETHAMINE 15 MG/ML VIAL IV. SCH ×2 (01:10→05:18)
--- NOTE | 2017-05-22 02:08 | NUR ---
ID: Pt is alert and oriented on RA. Diet is being tolerated. SLin the left AC. Dressing changed,rachna, well approximated and d/c/i. Abductor pillow in place. Voiding in the toilet without difficulty. Right limb restriction. Pt denies pain. Call delarosa within reach. Bed alarm on. Hourly rounding maintained. Discharge uncertain.
[2017-05-22] MEDS: ONDANSETRON INJ 2 MG/ML 2 ML VIAL IV PRN ×2 (03:14→21:50)
[2017-05-22] MEDS: ACETAMINOPHEN 500 MG TAB PO SCH ×3 (05:18→21:43)
[2017-05-22] MEDS: METOCLOPRAMIDE HCL INJ 5 MG/ML 2 ML VIAL IV PRN (06:35)
[2017-05-22] MEDS ORDERED: NURSING VERBAL MED ORDER ONE (07:15)
[2017-05-22] MEDS ORDERED: PROMETHAZINE HCL INJ 25 MG in SODIUM CHLORIDE 0.9% 50ML 50 ML IV PRN (07:30)
[2017-05-22 07:40] LABS: BASO % 0.1 %; BASO ABS # 0.02 K/uL (0-0.2); EOS % 0.2 %; EOS ABS # 0.03 K/uL (0-0.5); HEMATOCRIT 34.7 % (37-47); HEMOGLOBIN 11.6 g/dL (12.0-16.0); LYMPH % 6.2 %; LYMPH ABS # 1.12 K/uL (1.2-3.4); MEAN CELL VOLUME 95.3 fL (80-100); MEAN CORPUSCULAR HEMOGLOBIN 31.9 pg (25-34); MEAN CORPUSCULAR HGB CONC 33.4 g/dl (32-36); MEAN PLATELET VOLUME 10.8 fL (7.4-10.4); MONO % 5.8 %; MONO ABS # 1.05 K/uL (0.11-0.59); NEUT % 87.1 %; NEUT ABS # 15.69 K/uL (1.4-6.5); PLATELET COUNT 206 K/uL (130-400); RED CELL DISTRIBUTION WIDTH CV 12.3 % (11.5-14.5); RED CELL DISTRIBUTION WIDTH SD 42.5 fL (36.4-46.3); WHITE BLOOD COUNT 18.01 K/uL (4.8-10.8)
[2017-05-22 07:50] VITALS: BP 163/74; PULSE 89; TEMP 36.5; O2SAT 95
[2017-05-22] MEDS: CHECK SCOPOLAMINE PATCH PLACEMENT SCH ×4 (07:51→23:54)
[2017-05-22] MEDS: PANTOprazole SOD 40 MG TAB PO SCH (07:52)
--- NOTE | 2017-05-22 08:03 | PROGRESS NOTE ---
DATE: 05/22/2017 DATE: 05/22/2017 SUBJECTIVE: An 82-year-old white female postop day 2 from right total hip replacement. She has been nauseated overnight. She did get a dose of Dilaudid last evening. She apparently had some emesis as well. No chest pain or shortness of breath. Not feeling dizzy or lightheaded. OBJECTIVE: VITAL SIGNS: Temperature 37.3. Vital signs stable. GENERAL: Reveals a pleasant elderly female. She was walking to the bathroom this morning when I visited with her and looked pretty comfortable. She was doing pretty well walking. LUNGS: Clear to auscultation. HEART: Regular rate and rhythm. ABDOMEN: Soft. There is no tenderness to palpation. She does have some bowel sounds. EXTREMITIES: Examination of the right hip reveals the dressing to be clean, dry and intact. Hip is located. She is neurologically intact. LABORATORY DATA: Hemoglobin is 11.6. Hematocrit 34.7. White cell count 18.01. Electrolytes are pending. ASSESSMENT: An 82-year-old white female postop day 2 from right total hip replacement, doing pretty well. She has had some emesis, likely related to her pain medicine. Her hemoglobin is stable. PLAN: 1. DVT prophylaxis including thigh high TEDs, SCDs, and aspirin twice a day. 2. PT, OT. Weightbearing as tolerated. Right total hip protocol. 3. Pain control. We are going to hold her IV medicines to control nausea. Will stick to Tylenol. 4. Nausea/emesis. We are going to hold her Dilaudid and try and limit tramadol as well and just stick with Tylenol. 5. Disposition. She is hoping to go to rehab. Rehab request and authorization are pending.
[2017-05-22 08:08] LABS: ALBUMIN 2.7 gm/dl (3.4-5.0); CALCIUM 8.9 mg/dl (8.5-10.1); CREATININE 1.42 mg/dl (0.60-1.20); POTASSIUM 4.7 mmol/L (3.5-5.1)
[2017-05-22 08:13] LABS: TOTAL PROTEIN 5.9 gm/dl (6.4-8.2)
[2017-05-22] MEDS: ASPIRIN 325 MG ECTAB PO SCH ×2 (08:55→21:42)
[2017-05-22] MEDS: DOCUSATE SODIUM 100 MG CAP PO SCH ×2 (08:56→21:43)
--- NOTE | 2017-05-22 10:38 | NUR ---
*Disregard my note timed for 1038 today; this note was documented on wrong patient.
--- NOTE | 2017-05-22 10:38 | NUR ---
ID: Room air. Saline locked. Prevena Wound Vac dressing intact, operating properly; 4x4 and OpSite to site of previous drain is dry and intact. Patient ambulates with use of wheeled walker independently. Patient denies need for narcotic pain medication this a.m. Discharge plans: home with [facility] today. Addendum: 05/22/17 at 1042 by Heide Brito RN *Disregard this note*Documented on wrong patient.
--- NOTE | 2017-05-22 10:54 | Clinical Documentation Query ---
HARITHA Callahan : CLINICAL DOCUMENTATION QUERY Patient is an 82 year old female who on 05/20 underwent right JAYJAY. No history of CKD. BUN and creatinine yesterday were 23 mg/dl and 1.03 mg/dl. This a.m., values were 40 mg/dl and 1.42 mg/dl. GFR declined by 32%. Patient to be monitored with follow up chemistry panel in a.m. In your clinical opinion is this patient being managed for: ( ) Acute kidney failure (this is NOT a complication of care) ( ) Not Agree ( x ) Other explanation of clinical findings (Please Explain) Impaired kidney function secondary to hypovolemia, dehydration, and blood loss. ( ) Unable to determine (Please Define) ( ) Need to Discuss The medical record reflects the following clinical findings, treatment, and risk factors. Clinical Indicators: As above Treatment:Patient to be monitored with follow up chemistry panel in a.m. Risk Factors: Surgery, age Please clarify and document your clinical opinion in the progress notes and discharge summary. Terms such as "probable", "suspected", "likely", "questionable", "possible", or "still to be ruled out" are acceptable. IF IN AGREEMENT, YOU MUST DOCUMENT ABOVE DIAGNOSTIC STATEMENT IN DAILY PROGRESS NOTES AND DISCHARGE SUMMARY. This document is not part of the patient's record. Thank You, Kory Koo RN [phone]
[2017-05-22 11:47] VITALS: O2SAT 94
[2017-05-22 14:42] VITALS: BP 132/60; PULSE 88; TEMP 36.9; O2SAT 92
[2017-05-22] MEDS: BISACODYL 10 MG SUPP PR PRN (20:04)
[2017-05-22] MEDS: CYANOCOBALAMIN 2,500 MCG SUBL TAB PO SCH (21:40)
[2017-05-22] MEDS: CHOLECALCIFEROL 1000 INTER.UNIT TAB PO SCH (21:40)
[2017-05-22] MEDS: MULTIVITAMIN TAB PO SCH (21:40)
[2017-05-22] MEDS: CALCIUM 600MG + VIT D 400 IU TAB PO SCH (21:40)
[2017-05-22] MEDS: LOSARTAN POTASSIUM 50 MG TAB PO SCH (21:42)
[2017-05-22] MEDS: SIMVASTATIN 20 MG TAB PO SCH (21:42)
[2017-05-22] MEDS: SENNA 8.6 MG TAB PO SCH (21:43)
[2017-05-22 23:04] VITALS: BP 102/66; PULSE 81; TEMP 36.6; O2SAT 92
[2017-05-23] VITALS (7 sets, daily range): BP systolic 100–123; BP diastolic 61–75; PULSE 74–85; TEMP 36.5–37; O2SAT 90–97
[2017-05-23] MEDS ORDERED: PANTOprazole INJ 80 MG in DEXTROSE 5% 100ML IV STA (02:12)
[2017-05-23] MEDS ORDERED: BISACODYL 10 MG SUPP PR PRN (02:15)
[2017-05-23] MEDS: D5W AND NSS 1,000 ML IV SCH ×2 (02:29→14:24)
[2017-05-23] MEDS: PANTOprazole INJ 40 MG in DEXTROSE 5% 100ML IV SCH ×5 (03:07→22:58)
[2017-05-23] MEDS: METOCLOPRAMIDE HCL INJ 5 MG/ML 2 ML VIAL IV PRN (03:10)
--- NOTE | 2017-05-23 03:27 | NUR ---
ID: Pt is alert and oriented on RA. Pt is NPO. IVF infusing per MD order in the left anterior forearm. Dressing d/c/i. Abductor pillow in place. Voiding in the toilet without difficulty. Pt has had 400ml dark emesis so far this shift. Provider called, Anil consulted. Right limb restriction. Pt denies pain. Call delarosa within reach. Hourly rounding maintained. Discharge to [facility] when medically appropriate.
[2017-05-23] MEDS: ONDANSETRON INJ 2 MG/ML 2 ML VIAL IV PRN (05:36)
[2017-05-23] MEDS: ACETAMINOPHEN 500 MG TAB PO SCH ×4 (05:53→21:28)
--- NOTE | 2017-05-23 07:38 | DIAGNOSTIC IMAGING REPORT ---
KUB CLINICAL HISTORY: r/o ileus, obstruction COMPARISON STUDY: CT of the abdomen and pelvis October 09, 2015. FINDINGS: Right hip arthroplasty is partially imaged. The bowel gas pattern is normal. There is mild to moderate distention of the stomach. Visualized portions of the lung bases demonstrate apparent bilateral pleural effusions with bibasilar opacities. IMPRESSION: 1. Normal bowel gas pattern. No evidence for a bowel obstruction. 2. Mild to moderate distention of the stomach. 3. Suspected bilateral pleural effusions and bibasilar airspace opacities. Electronically signed by: Denny Bates M.D. 05/23/2017 7:36 AM Dictated Date/Time: 05/23/2017 7:35 AM
--- NOTE | 2017-05-23 07:59 | CONSULTATION REPORT ---
DATE OF CONSULTATION: 05/23/2017 DATE OF CONSULTATION: 05/23/2017 TIME: 2:23 a.m. CONSULTING PHYSICIAN: Dr. Fong. REASON FOR CONSULTATION: Possible upper gastrointestinal bleed. HISTORY OF PRESENT ILLNESS: The patient is an 82-year-old female with a history of hypertension, dyslipidemia, breast cancer who presented to the hospital for right hip arthroplasty. The patient underwent a right uncemented total hip arthroplasty by Dr. Cesar Fong under spinal anesthesia on 05/20/2017. Estimated blood loss 200 mL. Apparently, the patient had multiple episodes of emesis yesterday consisting of black liquid vomitus, three episodes of which liquid to 0 episodes of which were noted to be black. Her hemoglobin has decreased from 12.6 to 11.6 this morning. This evening, the patient had another episode of loose black liquid vomitus noted by the RN. Also she has had no bowel movement and minimal flatus since the surgery. On my exam, the patient is resting in bed, awake, alert, oriented x3, not in distress, very pleasant. She has had antiasthmatic and nausea is improving. She denies having any abdominal pain. Only reports minimal flatus, no bowel movement since the time of surgery. She denies having any history of ulcers in the past or GI bleeding in the past, but does report to take aspirin daily and naproxen for arthritic pains. She denies having any abdominal pain. Denies shortness of breath, palpitations, dizziness. No other symptoms noted. REVIEW OF SYSTEMS: Ten systems reviewed and negative except for the ones mentioned above. PAST MEDICAL HISTORY: Hypertension, dyslipidemia, breast cancer. MEDICATIONS: Losartan 50 mg daily, aspirin 81 mg daily, naproxen p.r.n., simvastatin 20 mg daily, Arimidex 1 mg daily. PAST SURGICAL HISTORY: The patient has a history of appendectomy, colonoscopy 05/14/2015, mastectomy, removal of ovaries, removal of tonsils, EGD in 2005 showing hiatal hernia, Schatzki's ring negative for H. pylori. PERSONAL AND SOCIAL HISTORY: She is . Denies smoking. Denies alcohol. FAMILY HISTORY: Cancer in brother, sister, father and uncle. Stroke mother. PHYSICAL EXAMINATION: VITAL SIGNS: Blood pressure 114/67, heart rate of 85, temperature 36.6, respiratory rate 14, 90% on room air. GENERAL: The patient is awake, alert, oriented x3, not in distress, no accessory muscle use. HEAD AND NECK: Atraumatic and normocephalic. Normal pupils. Full EOMs. No icterus. [place] conjunctivae. EARS, NOSE, THROAT: Grossly normal. NECK: No JVD, no lymphadenopathy or thyromegaly. HEART: Normal rate. Regular rhythm with S1 and S2. No murmurs. LUNGS: Clear breath sounds bilaterally. No rales or wheezes. ABDOMEN: Mildly distended, hyperactive bowel sounds, soft, nontender. EXTREMITIES: No pedal edema. No rashes noted. NEUROLOGIC EXAMINATION: No gross focal motor or sensory deficits. LABORATORY DATA: White count this morning is 18.0, hemoglobin 11.6, platelet count is 206. Chemistry: Sodium 135, potassium 4.7, BUN is 14, creatinine is 1.42, random glucose 130, calcium is 8.9, AST 67, ALT 36. INR is 1.0. EKG as of 04/23/2017 showing heart rate of 72, normal sinus rhythm, no signs of acute ischemia or infarct. ASSESSMENT AND PLAN: This is a very pleasant 82-year-old female who has a history of hypertension, dyslipidemia, postop day #3 status post right hip arthroplasty, now presenting with possible upper gastrointestinal bleed. 1. Possible upper gastrointestinal bleed. Risk factors include aspirin daily, which has now been increased to 325 b.i.d. for the past 2 days. The patient's last EGD was in 2005 showed hiatal hernia and Schatzki's ring per records. At this point, upper GI bleed may be secondary to gastritis, esophagitis with multiple emesis or peptic ulcer disease. We will obviously hold aspirin for the meantime and other NSAIDs and anticoagulation. We will keep patient n.p.o., provide her with IV fluids and also start Protonix drip. H&H will be checked q. 6 hours and GI consultation will be placed with Dr. Balderrama for possible EGD. 2. Nausea, vomiting, constipation, rule out ileus versus obstruction. Physical examination reveals mild distention. Hypoactive bowel sounds. Will start with KUB to rule these out. For now, the patient will be kept n.p.o. except medications and some sips of water. Continue bowel regimen and will add Dulcolax suppository. 3. Acute renal failure. Creatinine is noted to be 1.4 from 1.03. Will hold losartan. We will give the patient IV fluids. We will continue to monitor creatinine. As mentioned, avoid NSAIDs and any nephrotoxic agents. 4. Hypertension, stable, actually on the lower side. We will hold losartan and monitor for now. 5. Dyslipidemia. Hold simvastatin until GI symptoms resolved. 6. History of breast cancer, currently on Arimidex continue. 7. Deep venous thrombosis prophylaxis. We will have to hold aspirin and other anticoagulation until GI bleed is ruled out. Recommend SCDs for the meantime and early ambulation. Thank you for this consultation. We are going to follow the patient closely with you. The patient will be followed starting tomorrow by Dr. Leena Villanueva. Please do not hesitate to contact any [facility] hospitalist if you have any questions. We appreciate consultation. VANNA
[2017-05-23 08:04] LABS: HEMATOCRIT 31.4 % (37-47); HEMOGLOBIN 10.7 g/dL (12.0-16.0)
[2017-05-23] MEDS: DOCUSATE SODIUM 100 MG CAP PO SCH ×2 (08:34→21:27)
[2017-05-23 08:35] LABS: CALCIUM 9.3 mg/dl (8.5-10.1); CREATININE 1.03 mg/dl (0.60-1.20)
--- NOTE | 2017-05-23 10:43 | NUR ---
Case Management: Met with pt at bedside. Discharge plan is for pt to go to [facility] when medically stable. Pt states her would likely transport her on discharge. She will decide mode of transport on day of discharge. Case Management to follow.
--- NOTE | 2017-05-23 11:57 | Gastrointestinal Consultation ---
Gastrointestinal Consultation Date of Consultation: May 23, 2017 Attending Physician: Raphael Vasquez Consulting Physician: Pierre Hinojosa Reason for Consultation: Possible UGI bleed History of Present Illness Patient is a 82 year old female who is s/p R total hip arthroplasty on . GI consulted as pt was noted to have n/v, and multiple emesis w black liquid yesterday. Hgb dropped from 12.6 to 10.7. BUN iain to 40s. She didn't have any melena episode. On exam today she has epigastric to RUQ area tenderness. She hasn't vomited since last night. She had been on ASA 325mg BID since her surgery. No other NSAIDs. Her last EGD was in 2005 - Schatzski's ring , hiatal hernia, erythematous gastro/duodenopathy. Past Medical/Surgical History Medical Problems: (1) Abdominal pain, left upper quadrant Status: Acute (2) Chemosis Status: Acute (3) Conjunctivitis Status: Acute (4) Hypoxia Status: Acute (5) Left eye pain Status: Acute (6) Pneumonia Status: Acute Past Medical History: Hypertension, dyslipidemia, breast cancer. Past Surgical History: As above;appendectomy, mastectomy, removal of ovaries, removal of tonsils Family History FH: cancer FH: diabetes mellitus FH: hypertension FH: lung disease FH: seizures FHx: heart disease Social History Smoking Status: Never Smoker Alcohol Use: none Drug Use: none Marital Status: Housing Status: lives with family Occupation Status: employed Allergies Coded Allergies: No Known Allergies (Verified , 10/09/15) Current Medications Home Meds and Scripts Medications Dose Route/Sig Max Daily Dose Days Date Category Dose Instructions Tramadol HCl 50 Mg Tab 50-100 Mg PO Q6H PRN 30 05/20/17 Rx Take as needed for Pain. Aspirin 325 Mg Ectab 325 Mg PO BID 45 05/20/17 Rx Take to prevent blood clots. Sb Non-Aspirin Extra Stre (Acetaminophen) 500 Mg Tab 1,000 Mg PO Q8 30 05/20/17 Rx Take 3 times per day to lessen pain. Ferrous Gluconate 324 Mg Tab 324 Mg PO BIDM 30 05/20/17 Rx Take to restore blood count. Fosamax (Alendronate Sodium) 70 Mg Tab 1 Tab PO WK 28 04/23/17 Reported Vitamin B-12 (Cyanocobalamin) 5,000 Mcg Sub 1 Tab PO QPM 04/23/17 Reported Calcium (Calcium Carbonate) 600 Mg Tab 1 Tab PO QPM 04/23/17 Reported Vitamin D3 (Cholecalciferol) 5,000 Unit Cap 1 Tab PO QPM 04/23/17 Reported Naprosyn (Naproxen) 250 Mg Tab 250 Mg PO DAILY PRN 01/19/17 Reported Ocuvite Preservision (Multivitamins/Minerals) 1 Tab Tab 1 Tab PO QPM 01/19/17 Reported Glucosamine/Chondroitin (Glucosamine-Chondroitin) 1 Cap Cap 1 Cap PO QPM 01/19/17 Reported Aspirin Ec (Aspirin) 81 Mg Tab 81 Mg PO QPM 01/19/17 Reported Cozaar (Losartan Potassium) 50 Mg Tab 50 Mg PO QPM 12/05/15 Reported Zocor (Simvastatin) 20 Mg Tab 20 Mg PO QPM 04/03/12 Reported Multivitamin (Multivitamins) Tab 1 Tab PO QPM 03/16/11 Reported Review of Systems Constitutional: + weakness, No fever Respiratory: No cough, No shortness of breath Cardiac: No chest pain Abdomen: + see HPI, + nausea, + vomiting, No pain Physical Exam Date Time Temp Pulse Resp B/P (MAP) Pulse Ox O2 Delivery O2 Flow Rate FiO2 05/23/17 07:36 Room Air 05/23/17 07:15 36.9 80 16 109/69 (82) 92 Room Air 05/23/17 01:39 36.6 85 14 114/67 (83) 90 Room Air 05/22/17 23:45 Room Air 05/22/17 23:04 36.6 81 14 102/66 (78) 92 Room Air 05/22/17 15:37 Room Air 05/22/17 14:42 36.9 88 18 132/60 (84) 92 Room Air General Appearance: WD/WN, no apparent distress Eyes: normal inspection, PERRL, EOMI Neck: supple, no JVD, trachea midline Respiratory/Chest: normal breath sounds, no respiratory distress, no accessory muscle use Cardiovascular: regular rate, rhythm, no gallop, no murmur Abdomen: normal bowel sounds, soft, + tenderness (RUQ/epigastric ) Extremities: normal inspection, no pedal edema, no calf tenderness Neurologic/Psych: alert, normal mood/affect, oriented x 3 Skin: normal color, no jaundice, no rash Laboratory Results Last 24 Hours Test 05/23/17 02:21 05/23/17 07:57 Hemoglobin 11.0 g/dL 10.7 g/dL Hematocrit 32.0 % 31.4 % Sodium Level 133 mmol/L Potassium Level 4.0 mmol/L Chloride Level 101 mmol/L Carbon Dioxide Level 27 mmol/L Anion Gap 5.0 mmol/L Blood Urea Nitrogen 35 mg/dl Creatinine 1.03 mg/dl Est Creatinine Clear Calc Drug Dose 40.1 ml/min Estimated GFR () 59.0 Estimated GFR (Non- 50.9 BUN/Creatinine Ratio 33.6 Random Glucose 142 mg/dl Calcium Level 9.3 mg/dl Impression Patient is a 82 year old female s/p R total hip arthroplasty noted to have n/v, and several vomitus of black liquid yesterday. Hgb decreasing, BUN did rise. No signs of melena. She had been on ASA 325mg BID post op. Hx of Schatzki ring, hiatal hernia, erythematous gastro/duodenopathy in EGD 2005. Plan - NPO for EGD eval by Dr. Hinojosa today - PPI bolus and gtt - Will give further recs after EGD is completed today - Monitor H/H and transfuse prn ATTESTATION: I have performed a history and physical examination of this patient and reviewed the electronic record. Specifically, EGD showed a very large hiatal hernia, gastritis with ulceration. I have discussed the case with JAMIL Woods. The above note reflects my findings, conclusions, and recommendations. Pierre Hinojosa MD
[2017-05-23] MEDS ORDERED: ATROPINE SULFATE 0.1 MG/ML 5ML SYR IV PRN (12:15)
[2017-05-23] MEDS ORDERED: FENTANYL CITRATE INJ 50 MCG/1 ML 2 ML VIAL IV PRN (12:15)
[2017-05-23] MEDS ORDERED: ONDANSETRON INJ 2 MG/ML 2 ML VIAL IV PRN (12:15)
[2017-05-23] MEDS ORDERED: EpHEDrine SULFATE INJ 50 MG/ML AMP IV PRN (12:15)
[2017-05-23] MEDS ORDERED: SUCCINYLCHOLINE CHLORIDE 20 MG/ML 10 ML VIAL IV ONE (12:19)
[2017-05-23] MEDS ORDERED: LIDOCAINE HCL 2% 2 ML VIAL (20MG/ML) ONE (12:19)
[2017-05-23] MEDS ORDERED: PROPOFOL IV EMULSION 10 MG/ML 20 ML VIAL IV ONE (12:19)
--- NOTE | 2017-05-23 12:24 | Progress Note ---
Progress Note Date of Service May 23, 2017. Progress Note DATE: 05/22/2017 DATE: 05/22/2017 SUBJECTIVE: An 82-year-old white female postop day 3 from right total hip replacement. She has been nauseated overnight, and has had several bout of a black coloration in her emesis. GI has been consulted and the plan is to perform an upper Endoscopy to evaluate the cause of the black emesis. She has a feeling a constantly having to vomit in her chest. She denies any chest pain, or shortness of breath. OBJECTIVE: VITAL SIGNS: Vital signs stable. GENERAL: Reveals a pleasant elderly female. She was laying in bed comfortably. LUNGS: Clear to auscultation. HEART: Regular rate and rhythm. ABDOMEN: Soft. There is no tenderness to palpation. She does have some bowel sounds. EXTREMITIES: Examination of the right hip reveals the dressing to be clean, dry and intact. Hip is located. She is neurologically intact. LABORATORY DATA: Hemoglobin is 10.7. Hematocrit 31.4. Her H&H continue to trend down. ASSESSMENT: An 82-year-old white female postop day 3 from right total hip replacement, doing pretty well. She has had some emesis, with a black coloration. GI has been consulted and are performing an upper Endoscopy today. Her H&H are stable but have trended down slightly. PLAN: 1. DVT prophylaxis including thigh high TEDs, SCDs, and aspirin twice a day, unless aspirin is cause of black emesis. If that is the cause, we will need to provide her with another blood thinner for DVT prophylaxis. 2. PT, OT. Weightbearing as tolerated. Right total hip protocol. 3. Pain control. We are going to hold her IV medicines to control nausea. Will stick to Tylenol. 4. Nausea/emesis. We are going to hold her Dilaudid and try and limit tramadol as well and just stick with Tylenol. 5. Disposition. She is planning on going to rehab. She is cleared for discharge from our standpoint. Once medically stable in regards to the upper GI, she may be discharged to rehab. She will likely stay overnight, and be discharged hopefully tomorrow 05/24/2017.
[2017-05-23] MEDS ORDERED: FENTANYL CITRATE INJ 50 MCG/1 ML 2 ML VIAL ONE (12:30)
[2017-05-23] MEDS ORDERED: PHENYLEPHRINE 100MCG/ML 5ML SYR ONE (12:39)
[2017-05-23] MEDS ORDERED: PROMETHAZINE HCL INJ 12.5 MG in SODIUM CHLORIDE 0.9% 50ML 50 ML IV PRN (12:45)
--- NOTE | 2017-05-23 13:36 | GI REPORT ---
Procedure Date: 05/23/2017 11:59 AM Procedure: Upper GI endoscopy Indications: Coffee-ground emesis Medicines: General Anesthesia Complications: No immediate complications. Estimated blood loss: None. Estimated Blood Loss: Estimated blood loss: none. Procedure: Pre-Anesthesia Assessment: - Prior to the procedure, a History and Physical was performed, and patient medications, allergies and sensitivities were reviewed. The patient's tolerance of previous anesthesia was reviewed. - ASA Grade Assessment: III - A patient with severe systemic disease. After obtaining informed consent, the endoscope was passed under direct vision. Throughout the procedure, the patient's blood pressure, pulse, and oxygen saturations were monitored continuously. The Scope was introduced through the mouth, and advanced to the third part of duodenum. The upper GI endoscopy was accomplished without difficulty. The patient tolerated the procedure well. Findings: The examined esophagus was normal. The Z-line was regular and was found 30 cm from the incisors. A very large hiatal hernia was present with 2/3 of the stomach above the diaphragm. Hematin (altered blood/mnioks-gqggck-zeep material) and debris was found in the gastric fundus. Fluid aspiration (350 mL) was performed. A large 15 mm superficial gastric ulcer with no stigmata of bleeding were found in the gastric body within the hernia. There were several smaller superficial erosions. A few erosions without bleeding were found in the duodenal bulb. A medium diverticulum was found in the second portion of the duodenum. Impression: - Normal esophagus. - Z-line regular, 30 cm from the incisors. - Very large hiatal hernia. - Hematin (altered blood/zhfhqg-cfasgw-qfhj material) in the gastric fundus. There was no active bleeding. Fluid aspiration performed. - Non-obstructing non-bleeding gastric ulcers with no stigmata of bleeding. NSAID induced etiology. - Erosive duodenopathy without bleeding. - Duodenal diverticulum. Recommendation: - NPO. - Use a proton pump inhibitor IV. - [facility] patient to [facility] for [facility] care. - No aspirin, ibuprofen, naproxen, or other non-steroidal anti-inflammatory drugs. - Consider surgical consultation for repair of large hiatal hernia Pierre Hinojosa M.D. Pierre Hinojosa MD 05/23/2017 1:36:46 PM This report has been signed electronically. Note Initiated On: 05/23/2017 11:59 AM I attest to the content of the Intraoperative Record and orders documented therein, exceptions below
--- NOTE | 2017-05-23 13:51 | Anesthesiology Progress Note ---
Anesthesia Post Op Note Date & Time May 23, 2017 at 13:50 Vital Signs Pain Intensity: 0 Vital Signs Past 12 Hours Date Time Temp Pulse Resp B/P (MAP) Pulse Ox O2 Delivery O2 Flow Rate FiO2 05/23/17 13:45 86 21 129/65 93 Room Air 05/23/17 13:35 82 23 136/56 100 Oxymask 05/23/17 13:25 80 20 123/61 93 Oxymask 05/23/17 13:19 36.2 81 19 126/57 96 Oxymask 05/23/17 07:36 Room Air 05/23/17 07:15 36.9 80 16 109/69 (82) 92 Room Air Notes Mental Status: alert / awake / arousable, participated in evaluation Pt Amnestic to Procedure: Yes Nausea / Vomiting: adequately controlled Pain: adequately controlled Airway Patency, RR, SpO2: stable & adequate BP & HR: stable & adequate Hydration State: stable & adequate Anesthetic Complications: no major complications apparent
[2017-05-23 14:35] LABS: HEMATOCRIT 28.4 % (37-47); HEMOGLOBIN 9.6 g/dL (12.0-16.0)
--- NOTE | 2017-05-23 17:46 | Progress Note ---
Medicine Progress Note Date & Time of Visit: May 23, 2017 at 1300. Subjective 82yoF s/p R hip replacement with recent hemetemesis overnight. She underwent EGD today and was found to have nonbleeding gastric ulcers likely related to NSAID use as well as a large hiatal hernia. She was continued on a PPI drip and NSAIDs for DVT prophylaxis were stopped. Reports feeling OK today. Currently NPO. Post-op pain is controlled in hip. Objective Last 8 Hrs Date Time Temp Pulse Resp B/P (MAP) Pulse Ox O2 Delivery O2 Flow Rate FiO2 05/23/17 17:16 37.0 80 16 100/61 (74) 95 Nasal Cannula 1.0 05/23/17 16:06 36.5 82 16 114/71 (85) 95 Nasal Cannula 2.0 05/23/17 15:27 Nasal Cannula 2.0 05/23/17 15:15 36.7 74 16 123/75 (91) 97 Nasal Cannula 2.0 05/23/17 14:50 78 16 116/71 (86) 96 2.0 05/23/17 14:15 97 Nasal Cannula 2.0 05/23/17 14:05 81 16 125/58 97 Nasal Cannula 2 05/23/17 13:55 36.6 79 17 118/53 97 Nasal Cannula 2 05/23/17 13:45 86 21 129/65 93 Room Air 05/23/17 13:35 82 23 136/56 100 Oxymask 10 05/23/17 13:25 80 20 123/61 93 Oxymask 10 05/23/17 13:19 36.2 81 19 126/57 96 Oxymask 10 Physical Exam: GEN: WNWD, in no acute distress, alert and appropriate HEENT: NC/AT, pupils are equal bilaterally, normal sclerae, MMM CARDIO: reg rate, S1/2 heard without m/g/r LUNGS: CTA bilaterally, no crackles, rales or wheezes, good diaphragmatic excursion ABD: soft, non-tender, non-distended, no rebound or guarding, +BS EXTREMITY: RP and DP palpable 2+ bilat, no LE swelling or edema, extremities are warm and well-perfused NEURO: CN 2-12 grossly intact MUSC: 5/5 strength throughout, no focal deficits SKIN: warm and dry Laboratory Results: 05/22/17 07:17 Red Blood Count 3.64, Mean Corpuscular Volume 95.3, Mean Corpuscular Hemoglobin 31.9, Mean Corpuscular Hemoglobin Concent 33.4, Mean Platelet Volume 10.8, Neutrophils (%) (Auto) 87.1, Lymphocytes (%) (Auto) 6.2, Monocytes (%) (Auto) 5.8, Eosinophils (%) (Auto) 0.2, Basophils (%) (Auto) 0.1, Neutrophils # (Auto) 15.69, Lymphocytes # (Auto) 1.12, Monocytes # (Auto) 1.05, Eosinophils # (Auto) 0.03, Basophils # (Auto) 0.02 05/23/17 14:27 05/23/17 07:57 Test 04/23/17 14:37 05/22/17 07:17 05/23/17 07:57 Prothrombin Time 10.5 SECONDS (9.0-12.0) Prothromb Time International Ratio 1.0 (0.9-1.1) Activated Partial Thromboplast Time 26.4 SECONDS (21.0-31.0) Partial Thromboplastin Ratio 1.0 White Blood Count 18.01 K/uL (4.8-10.8) Red Blood Count 3.64 M/uL (4.2-5.4) Hemoglobin 11.6 g/dL (12.0-16.0) Hematocrit 34.7 % (37-47) Mean Corpuscular Volume 95.3 fL (80-100) Mean Corpuscular Hemoglobin 31.9 pg (25-34) Mean Corpuscular Hemoglobin Concent 33.4 g/dl (32-36) Platelet Count 206 K/uL (130-400) Mean Platelet Volume 10.8 fL (7.4-10.4) Neutrophils (%) (Auto) 87.1 % Lymphocytes (%) (Auto) 6.2 % Monocytes (%) (Auto) 5.8 % Eosinophils (%) (Auto) 0.2 % Basophils (%) (Auto) 0.1 % Neutrophils # (Auto) 15.69 K/uL (1.4-6.5) Lymphocytes # (Auto) 1.12 K/uL (1.2-3.4) Monocytes # (Auto) 1.05 K/uL (0.11-0.59) Eosinophils # (Auto) 0.03 K/uL (0-0.5) Basophils # (Auto) 0.02 K/uL (0-0.2) RDW Standard Deviation 42.5 fL (36.4-46.3) RDW Coefficient of Variation 12.3 % (11.5-14.5) Immature Granulocyte % (Auto) 0.6 % Immature Granulocyte # (Auto) 0.10 K/uL (0.00-0.02) Total Bilirubin 1.6 mg/dl (0.2-1) Aspartate Amino Transf (AST/SGOT) 67 U/L (15-37) Alanine Aminotransferase (ALT/SGPT) 36 U/L (12-78) Alkaline Phosphatase 46 U/L (45-117) Total Protein 5.9 gm/dl (6.4-8.2) Albumin 2.7 gm/dl (3.4-5.0) Globulin 3.2 gm/dl (2.5-4.0) Albumin/Globulin Ratio 0.8 (0.9-2) Anion Gap 5.0 mmol/L (3-11) Est Creatinine Clear Calc Drug Dose 40.1 ml/min Estimated GFR () 59.0 Estimated GFR (Non- 50.9 BUN/Creatinine Ratio 33.6 (10-20) Calcium Level 9.3 mg/dl (8.5-10.1) Last 24 Hours Test 05/23/17 02:21 05/23/17 07:57 05/23/17 14:27 Hemoglobin 11.0 g/dL 10.7 g/dL 9.6 g/dL Hematocrit 32.0 % 31.4 % 28.4 % Sodium Level 133 mmol/L Potassium Level 4.0 mmol/L Chloride Level 101 mmol/L Carbon Dioxide Level 27 mmol/L Anion Gap 5.0 mmol/L Blood Urea Nitrogen 35 mg/dl Creatinine 1.03 mg/dl Est Creatinine Clear Calc Drug Dose 40.1 ml/min Estimated GFR () 59.0 Estimated GFR (Non- 50.9 BUN/Creatinine Ratio 33.6 Random Glucose 142 mg/dl Calcium Level 9.3 mg/dl Assessment & Plan 82yoF s/p R hip replacement with recent hemetemesis overnight. She underwent EGD today and was found to have nonbleeding gastric ulcers likely related to NSAID use as well as a large hiatal hernia. She was continued on a PPI drip and NSAIDs for DVT prophylaxis were stopped. 1. PUD likely 2/2 NSAID use-She was on ASA 325 BID and had several doses of Toradol. EGD as above, PPI drip, appreciate continued GI recs. No NSAIDs. Monitor H/H. Cont NPO until advanced by GI. The patient's last EGD was in 2005 showed hiatal hernia and Schatzki's ring per records. 2. Acute blood loss anemia 2/2 above. 3. Leukocytosis-poss 2/2 inflammatory response. She is afebrile without other signs of infection. Monitor at this time. CBCD in am. 4. Postop state-s/p r hip replacement. Cont post-op management per Ortho. 5. Acute renal failure-resolved. But with borderline BP and recent GI bleed will cont to hold Losartan for now. 6. Hypertension, stable, actually on the lower side. We will hold losartan and monitor for now. 7. Dyslipidemia. Hold simvastatin until GI symptoms resolved. 8. History of breast cancer, currently on Arimidex continue. DVT proph-SCDs, early ambulation Full Code Dispo-awaiting definitive GI recs to advance diet and once H/H stable, she will go to rehab per Ortho. Thank you for this consultation. We are going to follow the patient closely with you. Leena Villanueva DO [facility] Hospitalist Current Inpatient Medications: Current Inpatient Medications Medications (Trade) Dose Ordered Sig/Jose Route Start Time Stop Time Status Last Admin Dose Admin Acetaminophen (Tylenol Tab) 1,000 mg Q8 PO 05/20/17 15:00 06/19/17 14:59 05/23/17 05:53 1,000 MG Magnesium Hydroxide (Milk Of Magnesia Susp) 30 ml Q6H PRN PO 05/20/17 12:45 06/19/17 12:44 Bisacodyl (Dulcolax Supp) 10 mg DAILY PRN [place] 05/20/17 12:45 06/19/17 12:44 05/22/17 20:04 10 MG Senna (Senokot Tab) 17.2 mg HS PO 05/20/17 21:00 06/19/17 20:59 05/22/17 21:43 17.2 MG Docusate Sodium (coLACE CAP) 100 mg BID PO 05/20/17 21:00 06/19/17 20:59 05/23/17 08:34 100 MG Al Hydrox/Mg Hydrox/Simethicone (Maalox Max Susp) 15 ml Q4H PRN PO 05/20/17 12:45 06/19/17 12:44 Zolpidem Tartrate (Ambien Tab) 5 mg HSZ PRN PO 05/21/17 03:00 06/20/17 02:59 Ondansetron HCl (Zofran Inj) 4 mg Q6H PRN IV 05/21/17 03:00 06/20/17 02:59 05/23/17 05:36 4 MG Metoclopramide HCl (Reglan Inj) 10 mg Q6H PRN IV 05/20/17 12:45 06/19/17 12:44 05/23/17 03:10 10 MG Silver Sulfadiazine (Silvadene 1% Crm 50GM Jar) 1 appln BID PRN EXT 05/20/17 12:45 06/19/17 12:44 Tramadol HCl (Ultram Tab) 1 TABLET FOR PAIN RATING... Q4H PRN PO 05/21/17 03:00 06/20/17 02:59 Multivitamins (Multivitamin Tab) 1 tab QPM PO 05/20/17 21:00 06/19/17 20:59 05/21/17 20:49 1 TAB Calcium/Vitamin D (Caltrate Plus Tab) 1 tab QPM PO 05/20/17 21:00 06/19/17 20:59 05/21/17 20:51 1 TAB Cholecalciferol (Vitamin D Tab) 5,000 inter.unit QPM PO 05/20/17 21:00 06/19/17 20:59 05/21/17 20:50 5,000 INTER.UNIT Cyanocobalamin (Vitamin B-12 Tab) 5,000 mcg QPM PO 05/20/17 21:00 06/19/17 20:59 05/21/17 21:01 2,500 MCG Promethazine HCl 25 mg/Sodium Chloride 51 ml @ 204 mls/hr Q6H PRN IV 05/22/17 07:30 06/21/17 07:29 Dextrose/Sodium Chloride 1,000 ml @ 80 mls/hr [id number] IV 05/23/17 02:00 06/22/17 01:59 05/23/17 14:24 80 MLS/HR Bisacodyl (Dulcolax Supp) 10 mg DAILY PRN [place] 05/23/17 02:15 06/22/17 02:14 Pantoprazole Sodium 40 mg/ Dextrose 100 ml @ 20 mls/hr Q5H IV 05/23/17 02:30 06/22/17 02:29 05/23/17 14:23 20 MLS/HR Promethazine HCl 12.5 mg/Sodium Chloride 50.5 ml @ 202 mls/hr ONE PRN IV 05/23/17 12:45
--- NOTE | 2017-05-23 18:47 | NUR ---
a/ contact number for daughter Raquel Carvajal [phone]. Granddaughter also nurse in [employer], may contact her.
[2017-05-23 20:21] LABS: HEMATOCRIT 29.5 % (37-47)
[2017-05-23] MEDS: CALCIUM 600MG + VIT D 400 IU TAB PO SCH (21:26)
[2017-05-23] MEDS: SENNA 8.6 MG TAB PO SCH (21:27)
[2017-05-23] MEDS: CYANOCOBALAMIN 2,500 MCG SUBL TAB PO SCH (21:27)
[2017-05-23] MEDS: MULTIVITAMIN TAB PO SCH (21:27)
[2017-05-23] MEDS: CHOLECALCIFEROL 1000 INTER.UNIT TAB PO SCH (21:27)
--- NOTE | 2017-05-24 01:23 | NUR ---
ID: Patient alert and oriented x4. IVF infusing per MD orders. Rating pain at a tolerable level. NPO except medications at this time. OOB with assist of one and walker. Voiding without difficulty. Discharge plans to [facility] when medically stable.
[2017-05-24 02:57] VITALS: BP 106/60; PULSE 82; TEMP 36.9; O2SAT 91
[2017-05-24] MEDS: D5W AND NSS 1,000 ML IV SCH ×2 (02:58→15:19)
[2017-05-24] MEDS: PANTOprazole INJ 40 MG in DEXTROSE 5% 100ML IV SCH ×5 (03:31→23:37)
[2017-05-24] MEDS: ACETAMINOPHEN 500 MG TAB PO SCH ×3 (05:54→20:39)
[2017-05-24 06:31] LABS: HEMOGLOBIN 8.9 g/dL (12.0-16.0); IG# 0.04 K/uL (0.00-0.02); LYMPH % 11.2 %; LYMPH ABS # 1.16 K/uL (1.2-3.4); MEAN CELL VOLUME 94.9 fL (80-100); MEAN CORPUSCULAR HEMOGLOBIN 32.5 pg (25-34); MEAN CORPUSCULAR HGB CONC 34.2 g/dl (32-36); MEAN PLATELET VOLUME 10.4 fL (7.4-10.4); MONO % 6.6 %; MONO ABS # 0.68 K/uL (0.11-0.59); NEUT % 81.8 %; NEUT ABS # 8.48 K/uL (1.4-6.5); PLATELET COUNT 221 K/uL (130-400); RED CELL DISTRIBUTION WIDTH CV 12.8 % (11.5-14.5); RED CELL DISTRIBUTION WIDTH SD 44.3 fL (36.4-46.3); WHITE BLOOD COUNT 10.36 K/uL (4.8-10.8)
[2017-05-24 07:02] LABS: CALCIUM 8.6 mg/dl (8.5-10.1); CREATININE 0.85 mg/dl (0.60-1.20)
[2017-05-24 08:00] VITALS: BP 103/59; PULSE 80; TEMP 37; O2SAT 92
[2017-05-24] MEDS: DOCUSATE SODIUM 100 MG CAP PO SCH ×2 (08:13→20:42)
--- NOTE | 2017-05-24 09:42 | PROGRESS NOTE ---
DATE: 05/24/2017 CHIEF COMPLAINT: Status post right total hip arthroplasty, postop day #4. PROGRESS: Overall, she is doing much better. She had not eaten much in the last couple days, but she says she is feeling really well. She did have the EGD yesterday. They showed some ulcers, but they were not bleeding. Her aspirin was stopped and she was not started on any other blood thinners per medicine's recommendation. She has still been up and ambulating and has no other complaints. PHYSICAL EXAMINATION: RIGHT HIP: The dressing has been changed and rachna were open to air. Her leg lengths are equal. She has active dorsiflexion and plantarflexion of her right ankle and sensation is intact throughout. LABORATORY DATA: She has an H&H today of 8.9 and 26.0. This continues to trend down from previous levels, but transfusion is not necessary at this point. Her vital signs are stable on room air. She is voiding on her own and has already had a bowel movement. IMPRESSION: 1. Status post right total hip arthroplasty, postop day #4. 2. Peptic ulcer disease. PLAN: Her aspirin has been stopped per the recommendations of the hospitalist. She was not started on any other blood thinners. She is still doing TEDs and SCDs for mechanical DVT prophylaxis. She was on aspirin 81 mg prior to admission and from an orthopedic standpoint, it would be safe to send her home on aspirin 81 mg for DVT prophylaxis. She will need to continue her SUELLEN hose stockings for mechanical prophylaxis. She is encouraged to be up and weightbearing as tolerated. She is orthopedically stable for discharge to [facility] later today once cleared by medicine and GI. We will see her in the office in 2 weeks. VANNA
--- NOTE | 2017-05-24 14:35 | NUR ---
RD At Risk Screen completed d/t zackery Uribe Nutrition score. See linked note for details. Level of care III. Addendum: 05/24/17 at [address] Amended: Links added.
[2017-05-24 15:26] LABS: HEMATOCRIT 29.9 % (37-47)
[2017-05-24 15:36] VITALS: BP 121/68; PULSE 96; TEMP 36.5; O2SAT 94
--- NOTE | 2017-05-24 18:08 | Progress Note ---
Medicine Progress Note Date & Time of Visit: May 24, 2017 at 18:03. Subjective 82yoF s/p R hip replacement with recent hematemesis. She underwent EGD on and was found to have nonbleeding gastric ulcers likely related to NSAID use as well as a large hiatal hernia. She was continued on a PPI drip and NSAIDs for DVT prophylaxis were stopped. She denies any abdominal pain or bloating today and reports feeling well. She has no lightheadedness with ambulation and denies chest pain or shortness of breath. Spoke with Dr. Balderrama who recommended continuing the PPI while she is in the hospital, starting her on clears and adding ASA 81mg PO daily for DVT prophylaxis. The patient was doing well until she took in clears and then nurse reported abdominal pain and bloating so she was switched back to sips and ice chips for now. Objective Last 8 Hrs Date Time Temp Pulse Resp B/P (MAP) Pulse Ox O2 Delivery O2 Flow Rate FiO2 05/24/17 15:36 36.5 96 16 121/68 (85) 94 Room Air Physical Exam: GEN: WNWD, in no acute distress, alert and appropriate HEENT: NC/AT, pupils are equal bilaterally, normal sclerae, MMM CARDIO: reg rate, S1/2 heard without m/g/r LUNGS: CTA bilaterally, no crackles, rales or wheezes, good diaphragmatic excursion ABD: soft, non-tender, non-distended, no rebound or guarding, +BS EXTREMITY: RP and DP palpable 2+ bilat, no LE swelling or edema, extremities are warm and well-perfused NEURO: CN 2-12 grossly intact MUSC: 5/5 strength throughout, no focal deficits SKIN: warm and dry Laboratory Results: 05/24/17 06:12 Red Blood Count 2.74, Mean Corpuscular Volume 94.9, Mean Corpuscular Hemoglobin 32.5, Mean Corpuscular Hemoglobin Concent 34.2, Mean Platelet Volume 10.4, Neutrophils (%) (Auto) 81.8, Lymphocytes (%) (Auto) 11.2, Monocytes (%) (Auto) 6.6, Eosinophils (%) (Auto) 0.0, Basophils (%) (Auto) 0.0, Neutrophils # (Auto) 8.48, Lymphocytes # (Auto) 1.16, Monocytes # (Auto) 0.68, Eosinophils # (Auto) 0.00, Basophils # (Auto) 0.00 05/24/17 15:11 05/24/17 06:12 Test 04/23/17 14:37 05/22/17 07:17 05/24/17 06:12 Prothrombin Time 10.5 SECONDS (9.0-12.0) Prothromb Time International Ratio 1.0 (0.9-1.1) Activated Partial Thromboplast Time 26.4 SECONDS (21.0-31.0) Partial Thromboplastin Ratio 1.0 Total Bilirubin 1.6 mg/dl (0.2-1) Aspartate Amino Transf (AST/SGOT) 67 U/L (15-37) Alanine Aminotransferase (ALT/SGPT) 36 U/L (12-78) Alkaline Phosphatase 46 U/L (45-117) Total Protein 5.9 gm/dl (6.4-8.2) Albumin 2.7 gm/dl (3.4-5.0) Globulin 3.2 gm/dl (2.5-4.0) Albumin/Globulin Ratio 0.8 (0.9-2) White Blood Count 10.36 K/uL (4.8-10.8) Red Blood Count 2.74 M/uL (4.2-5.4) Hemoglobin 8.9 g/dL (12.0-16.0) Hematocrit 26.0 % (37-47) Mean Corpuscular Volume 94.9 fL (80-100) Mean Corpuscular Hemoglobin 32.5 pg (25-34) Mean Corpuscular Hemoglobin Concent 34.2 g/dl (32-36) Platelet Count 221 K/uL (130-400) Mean Platelet Volume 10.4 fL (7.4-10.4) Neutrophils (%) (Auto) 81.8 % Lymphocytes (%) (Auto) 11.2 % Monocytes (%) (Auto) 6.6 % Eosinophils (%) (Auto) 0.0 % Basophils (%) (Auto) 0.0 % Neutrophils # (Auto) 8.48 K/uL (1.4-6.5) Lymphocytes # (Auto) 1.16 K/uL (1.2-3.4) Monocytes # (Auto) 0.68 K/uL (0.11-0.59) Eosinophils # (Auto) 0.00 K/uL (0-0.5) Basophils # (Auto) 0.00 K/uL (0-0.2) RDW Standard Deviation 44.3 fL (36.4-46.3) RDW Coefficient of Variation 12.8 % (11.5-14.5) Immature Granulocyte % (Auto) 0.4 % Immature Granulocyte # (Auto) 0.04 K/uL (0.00-0.02) Red Blood Cell Morphology Unremarkable Anion Gap 4.0 mmol/L (3-11) Est Creatinine Clear Calc Drug Dose 48.6 ml/min Estimated GFR () 74.5 Estimated GFR (Non- 64.3 BUN/Creatinine Ratio 29.4 (10-20) Calcium Level 8.6 mg/dl (8.5-10.1) Magnesium Level 2.3 mg/dl (1.8-2.4) Last 24 Hours Test 05/23/17 20:14 05/24/17 06:12 05/24/17 15:11 Hemoglobin 10.0 g/dL 8.9 g/dL 10.0 g/dL Hematocrit 29.5 % 26.0 % 29.9 % White Blood Count 10.36 K/uL Red Blood Count 2.74 M/uL Mean Corpuscular Volume 94.9 fL Mean Corpuscular Hemoglobin 32.5 pg Mean Corpuscular Hemoglobin Concent 34.2 g/dl Platelet Count 221 K/uL Mean Platelet Volume 10.4 fL Neutrophils (%) (Auto) 81.8 % Lymphocytes (%) (Auto) 11.2 % Monocytes (%) (Auto) 6.6 % Eosinophils (%) (Auto) 0.0 % Basophils (%) (Auto) 0.0 % Neutrophils # (Auto) 8.48 K/uL Lymphocytes # (Auto) 1.16 K/uL Monocytes # (Auto) 0.68 K/uL Eosinophils # (Auto) 0.00 K/uL Basophils # (Auto) 0.00 K/uL RDW Standard Deviation 44.3 fL RDW Coefficient of Variation 12.8 % Immature Granulocyte % (Auto) 0.4 % Immature Granulocyte # (Auto) 0.04 K/uL Red Blood Cell Morphology Unremarkable Sodium Level 138 mmol/L Potassium Level 4.0 mmol/L Chloride Level 107 mmol/L Carbon Dioxide Level 27 mmol/L Anion Gap 4.0 mmol/L Blood Urea Nitrogen 25 mg/dl Creatinine 0.85 mg/dl Est Creatinine Clear Calc Drug Dose 48.6 ml/min Estimated GFR () 74.5 Estimated GFR (Non- 64.3 BUN/Creatinine Ratio 29.4 Random Glucose 157 mg/dl Calcium Level 8.6 mg/dl Magnesium Level 2.3 mg/dl Assessment & Plan 82yoF s/p R hip replacement with recent hematemesis. She underwent EGD on and was found to have nonbleeding gastric ulcers likely related to NSAID use as well as a large hiatal hernia. She was continued on a PPI drip and NSAIDs for DVT prophylaxis were stopped. She denies any abdominal pain or bloating today and reports feeling well. She has no lightheadedness with ambulation and denies chest pain or shortness of breath. Spoke with Dr. Balderrama who recommended continuing the PPI while she is in the hospital, starting her on clears and adding ASA 81mg PO daily for DVT prophylaxis. The patient was doing well until she took in clears and then nurse reported abdominal pain and bloating so she was switched back to sips and ice chips for now. 1. PUD likely 2/2 NSAID use-She was on ASA 325 BID and had several doses of Toradol. EGD as above, PPI drip, appreciate continued GI recs as above. H/H stable. 2. Acute blood loss anemia 2/2 above. 3. Leukocytosis-resolved. 4. Postop state-s/p r hip replacement. Cont post-op management per Ortho. DC to rehab once cleared medically. 5. Acute renal failure-resolved. But with borderline BP and recent GI bleed will cont to hold Losartan for now. 6. Hypertension, stable, actually on the lower side. We will hold losartan and monitor for now. 7. Dyslipidemia. Hold simvastatin until GI symptoms resolved. 8. History of breast cancer, currently on Arimidex continue. DVT proph-ASA 81mg , early ambulation Full Code Dispo-awaiting definitive GI recs to advance diet and once H/H stable, she will go to rehab per Ortho. Thank you for this consultation. We are going to follow the patient closely with you. Leena Villanueva DO [facility] Hospitalist Current Inpatient Medications: Current Inpatient Medications Medications (Trade) Dose Ordered Sig/Jose Route Start Time Stop Time Status Last Admin Dose Admin Acetaminophen (Tylenol Tab) 1,000 mg Q8 PO 05/20/17 15:00 06/19/17 14:59 05/23/17 21:28 1,000 MG Magnesium Hydroxide (Milk Of Magnesia Susp) 30 ml Q6H PRN PO 05/20/17 12:45 06/19/17 12:44 Bisacodyl (Dulcolax Supp) 10 mg DAILY PRN OR 05/20/17 12:45 06/19/17 12:44 05/22/17 20:04 10 MG Senna (Senokot Tab) 17.2 mg HS PO 05/20/17 21:00 06/19/17 20:59 05/23/17 21:27 17.2 MG Docusate Sodium (coLACE CAP) 100 mg BID PO 05/20/17 21:00 06/19/17 20:59 05/24/17 08:13 100 MG Al Hydrox/Mg Hydrox/Simethicone (Maalox Max Susp) 15 ml Q4H PRN PO 05/20/17 12:45 06/19/17 12:44 Zolpidem Tartrate (Ambien Tab) 5 mg HSZ PRN PO 05/21/17 03:00 06/20/17 02:59 Ondansetron HCl (Zofran Inj) 4 mg Q6H PRN IV 05/21/17 03:00 06/20/17 02:59 05/23/17 05:36 4 MG Metoclopramide HCl (Reglan Inj) 10 mg Q6H PRN IV 05/20/17 12:45 06/19/17 12:44 05/23/17 03:10 10 MG Silver Sulfadiazine (Silvadene 1% Crm 50GM Jar) 1 appln BID PRN EXT 05/20/17 12:45 06/19/17 12:44 Tramadol HCl (Ultram Tab) 1 TABLET FOR PAIN RATING... Q4H PRN PO 05/21/17 03:00 06/20/17 02:59 Multivitamins (Multivitamin Tab) 1 tab QPM PO 05/20/17 21:00 06/19/17 20:59 05/23/17 21:27 1 TAB Calcium/Vitamin D (Caltrate Plus Tab) 1 tab QPM PO 05/20/17 21:00 06/19/17 20:59 05/23/17 21:26 1 TAB Cholecalciferol (Vitamin D Tab) 5,000 inter.unit QPM PO 05/20/17 21:00 06/19/17 20:59 05/23/17 21:27 5,000 INTER.UNIT Cyanocobalamin (Vitamin B-12 Tab) 5,000 mcg QPM PO 05/20/17 21:00 06/19/17 20:59 05/23/17 21:27 5,000 MCG Promethazine HCl 25 mg/Sodium Chloride 51 ml @ 204 mls/hr Q6H PRN IV 05/22/17 07:30 06/21/17 07:29 Dextrose/Sodium Chloride 1,000 ml @ 80 mls/hr [id number] IV 05/23/17 02:00 06/22/17 01:59 05/24/17 15:19 80 MLS/HR Bisacodyl (Dulcolax Supp) 10 mg DAILY PRN OR 05/23/17 02:15 06/22/17 02:14 Pantoprazole Sodium 40 mg/ Dextrose 100 ml @ 20 mls/hr Q5H IV 05/23/17 02:30 06/22/17 02:29 05/24/17 13:18 20 MLS/HR Promethazine HCl 12.5 mg/Sodium Chloride 50.5 ml @ 202 mls/hr ONE PRN IV 05/23/17 12:45 Aspirin (Ecotrin Tab) 81 mg QAM PO 05/25/17 09:00 06/24/17 08:59
[2017-05-24] MEDS: CHOLECALCIFEROL 1000 INTER.UNIT TAB PO SCH (20:39)
[2017-05-24] MEDS: CYANOCOBALAMIN 2,500 MCG SUBL TAB PO SCH (20:39)
[2017-05-24] MEDS: CALCIUM 600MG + VIT D 400 IU TAB PO SCH (20:39)
[2017-05-24] MEDS: MULTIVITAMIN TAB PO SCH (20:39)
[2017-05-24] MEDS: SENNA 8.6 MG TAB PO SCH (20:42)
[2017-05-24 22:48] VITALS: BP 143/61; PULSE 96; TEMP 36.8; O2SAT 95
[2017-05-25] MEDS: D5W AND NSS 1,000 ML IV SCH ×2 (03:40→16:52)
[2017-05-25] MEDS: PANTOprazole INJ 40 MG in DEXTROSE 5% 100ML IV SCH ×2 (04:26→09:34)
--- NOTE | 2017-05-25 05:28 | NUR ---
ID NOTE: Patient is alert and oriented x4. VSS. She is currently NPO except for chips/sips & meds. She is OOB with x1 assist and a walker. IV site is intact and patent infusing fluids/protonix drip at this time. Pain is controlled with routine/PRN pain medications per MD orders. Call delarosa and bedside table are within reach; she has been encouraged to ring for assistance. D/C to [facility].
[2017-05-25 05:38] LABS: HEMATOCRIT 29.3 % (37-47); HEMOGLOBIN 9.7 g/dL (12.0-16.0); MEAN CELL VOLUME 96.7 fL (80-100); MEAN CORPUSCULAR HGB CONC 33.1 g/dl (32-36); MEAN PLATELET VOLUME 10.6 fL (7.4-10.4); PLATELET COUNT 211 K/uL (130-400); WHITE BLOOD COUNT 12.25 K/uL (4.8-10.8)
[2017-05-25 05:44] LABS: CALCIUM 8.5 mg/dl (8.5-10.1); CREATININE 0.88 mg/dl (0.60-1.20); POTASSIUM 3.8 mmol/L (3.5-5.1)
[2017-05-25] MEDS: ACETAMINOPHEN 500 MG TAB PO SCH ×4 (06:00→21:27)
--- NOTE | 2017-05-25 07:28 | Gastroenterology Progress Note ---
Progress Note Date of Service: May 25, 2017 Subjective Pt evaluation today including: conversation w/ patient, physical exam, chart review, lab review, review of studies patient started on clear liquids yesterday. Had some pain and bloating and clears were stopped and patient on sips. Last BM was 05/23. H/H is stable. Review of Systems 12 systems reviewed and negative except as noted Medications Current Inpatient Medications Medications (Trade) Dose Ordered Sig/Jose Route Start Time Stop Time Status Last Admin Dose Admin Acetaminophen (Tylenol Tab) 1,000 mg Q8 PO 05/20/17 15:00 06/19/17 14:59 05/25/17 07:12 1,000 MG Magnesium Hydroxide (Milk Of Magnesia Susp) 30 ml Q6H PRN PO 05/20/17 12:45 06/19/17 12:44 Bisacodyl (Dulcolax Supp) 10 mg DAILY PRN TN 05/20/17 12:45 06/19/17 12:44 05/22/17 20:04 10 MG Senna (Senokot Tab) 17.2 mg HS PO 05/20/17 21:00 06/19/17 20:59 05/23/17 21:27 17.2 MG Docusate Sodium (coLACE CAP) 100 mg BID PO 05/20/17 21:00 06/19/17 20:59 05/24/17 20:42 100 MG Al Hydrox/Mg Hydrox/Simethicone (Maalox Max Susp) 15 ml Q4H PRN PO 05/20/17 12:45 06/19/17 12:44 Zolpidem Tartrate (Ambien Tab) 5 mg HSZ PRN PO 05/21/17 03:00 06/20/17 02:59 Ondansetron HCl (Zofran Inj) 4 mg Q6H PRN IV 05/21/17 03:00 06/20/17 02:59 05/23/17 05:36 4 MG Metoclopramide HCl (Reglan Inj) 10 mg Q6H PRN IV 05/20/17 12:45 06/19/17 12:44 05/23/17 03:10 10 MG Silver Sulfadiazine (Silvadene 1% Crm 50GM Jar) 1 appln BID PRN EXT 05/20/17 12:45 06/19/17 12:44 Tramadol HCl (Ultram Tab) 1 TABLET FOR PAIN RATING... Q4H PRN PO 05/21/17 03:00 06/20/17 02:59 Multivitamins (Multivitamin Tab) 1 tab QPM PO 05/20/17 21:00 06/19/17 20:59 05/23/17 21:27 1 TAB Calcium/Vitamin D (Caltrate Plus Tab) 1 tab QPM PO 05/20/17 21:00 06/19/17 20:59 05/23/17 21:26 1 TAB Cholecalciferol (Vitamin D Tab) 5,000 inter.unit QPM PO 05/20/17 21:00 06/19/17 20:59 05/23/17 21:27 5,000 INTER.UNIT Cyanocobalamin (Vitamin B-12 Tab) 5,000 mcg QPM PO 05/20/17 21:00 06/19/17 20:59 05/23/17 21:27 5,000 MCG Promethazine HCl 25 mg/Sodium Chloride 51 ml @ 204 mls/hr Q6H PRN IV 05/22/17 07:30 06/21/17 07:29 Dextrose/Sodium Chloride 1,000 ml @ 80 mls/hr [id number] IV 05/23/17 02:00 06/22/17 01:59 05/25/17 03:40 80 MLS/HR Bisacodyl (Dulcolax Supp) 10 mg DAILY PRN [place] 05/23/17 02:15 06/22/17 02:14 Pantoprazole Sodium 40 mg/ Dextrose 100 ml @ 20 mls/hr Q5H IV 05/23/17 02:30 06/22/17 02:29 05/25/17 04:26 20 MLS/HR Promethazine HCl 12.5 mg/Sodium Chloride 50.5 ml @ 202 mls/hr ONE PRN IV 05/23/17 12:45 Aspirin (Ecotrin Tab) 81 mg QAM PO 05/25/17 09:00 06/24/17 08:59 Objective Vital Signs Date Time Temp Pulse Resp B/P (MAP) Pulse Ox O2 Delivery O2 Flow Rate FiO2 05/24/17 23:00 Room Air 05/24/17 22:48 36.8 96 18 143/61 (88) 95 Room Air 05/24/17 19:15 Room Air 05/24/17 15:36 36.5 96 16 121/68 (85) 94 Room Air 05/24/17 08:00 37.0 80 16 103/59 (74) 92 Room Air 05/24/17 07:33 Room Air Physical Exam General Appearance: WD/WN, no apparent distress Eyes: normal inspection, PERRL ENT: normal ENT inspection, hearing grossly normal, pharynx normal Neck: supple, no adenopathy Respiratory/Chest: chest non-tender, + decreased breath sounds Cardiovascular: regular rate, rhythm Abdomen: normal bowel sounds, non tender, soft, no organomegaly Extremities: normal inspection, no pedal edema Neurologic/Psych: electrician helper II-XII nml as tested, no motor/sensory deficits, alert Skin: normal color, no jaundice Laboratory Results Last 24 Hours Test 05/24/17 15:11 05/25/17 05:05 Hemoglobin 10.0 g/dL 9.7 g/dL Hematocrit 29.9 % 29.3 % White Blood Count 12.25 K/uL Red Blood Count 3.03 M/uL Mean Corpuscular Volume 96.7 fL Mean Corpuscular Hemoglobin 32.0 pg Mean Corpuscular Hemoglobin Concent 33.1 g/dl RDW Standard Deviation 45.0 fL RDW Coefficient of Variation 13.0 % Platelet Count 211 K/uL Mean Platelet Volume 10.6 fL Sodium Level 138 mmol/L Potassium Level 3.8 mmol/L Chloride Level 110 mmol/L Carbon Dioxide Level 25 mmol/L Anion Gap 3.0 mmol/L Blood Urea Nitrogen 18 mg/dl Creatinine 0.88 mg/dl Est Creatinine Clear Calc Drug Dose 46.9 ml/min Estimated GFR () 71.4 Estimated GFR (Non- 61.6 BUN/Creatinine Ratio 20.7 Random Glucose 115 mg/dl Calcium Level 8.5 mg/dl Assessment and Plan 82 yo female who is s/p hip surgery and was on ASA 325 mg BID post op who had hematemesis. EGD showed large intrathoracic stomach and some superficial ulcerations. H/H stable. BLoated and some pain with clear liquids. Having BMs. - Can consider repeating a KUB today. - CAn attempt clears today and be sure patient is upright at 90 degress with all oral intake. - Can switch from IV PPI to oral today. - Bowel regimen. - Patient will need outpatient surgical follow up regarding the hiatal hernia.
[2017-05-25 07:37] VITALS: BP 126/71; PULSE 97; TEMP 37.3; O2SAT 92
[2017-05-25] MEDS: DOCUSATE SODIUM 100 MG CAP PO SCH ×2 (08:35→21:19)
[2017-05-25] MEDS: ASPIRIN 81 MG ECTAB PO SCH (08:36)
--- NOTE | 2017-05-25 08:42 | PROGRESS NOTE ---
DATE: 05/25/2017 CHIEF COMPLAINT: Status post right total hip arthroplasty, postop day #5. PROGRESS: Hedy is feeling a little better this morning. She was feeling really well yesterday. Then, they started her on a clear liquid diet. Last evening, she began noticing a fullness in her abdomen and felt like she was regressing. The maintenance leader took her off clear liquid diet and put her on sips only. This morning, she was seen again by the maintenance leader and she was started on clear liquid diet. She said she does not feel quite as good as she did yesterday morning, but she is feeling better than she did last evening. She worked well yesterday with physical therapy and was ambulating around the nurses' station. She is not having any issues with her hip. PHYSICAL EXAMINATION: RIGHT HIP: There is an ABD dressing that is now placed over the incision. There is no drainage on the dressing. Her leg lengths are equal. She has active dorsiflexion and plantarflexion of her right ankle and sensation is intact throughout. LABORATORY DATA: She has an H&H today of 9.7 and 29.3 and it seems to be stable at this point. Her vital signs are all stable on room air. She is voiding on her own and had a bowel movement 2 days ago. IMPRESSION: 1. Status post right total hip arthroplasty, postop day #5. 2. Peptic ulcer disease. PLAN: The maintenance leader felt it was okay to start her on aspirin 81 mg daily for DVT prophylaxis and we will continue to keep her on that as well as SUELLEN hose stockings and ambulation for DVT prophylaxis from our standpoint. They are going to try to advance her diet today. If she is able to tolerate a full diet today, we will look for discharge to [facility] tomorrow. We will continue to follow her closely.
[2017-05-25 10:47] VITALS: BP 111/67; PULSE 87; TEMP 37.1; O2SAT 95
[2017-05-25] MEDS ORDERED: VANCOMYCIN CONSULT ACTIVE PRN (10:51)
--- NOTE | 2017-05-25 10:51 | Progress Note ---
Medicine Progress Note Date & Time of Visit: May 25, 2017 at 10:45. Subjective 82yoF s/p R hip replacement with recent hematemesis. She underwent EGD on and was found to have nonbleeding gastric ulcers likely related to NSAID use as well as a large hiatal hernia. She was continued on a PPI drip and NSAIDs for DVT prophylaxis were stopped. She denies any abdominal pain or bloating today and reports feeling well. She has no lightheadedness with ambulation and denies chest pain or shortness of breath. Continues on PPI drip. Nurses report greenish drainage from her wound this morning. Pt reports sweats and fevers overnight and is mildly tachycardic this morning with a slight leukocytosis. She did have some clears for breakfast this morning but didn't eat much of it and reports a low appetite. She denies blood per rectum, nausea or vomiting. Nurses also reported low urine output with foul-smelling urine overnight. Pt denies UTI symptoms including no dysuria, urinary urgency and admits to not drinking much water overnight (was NPO wtih sips and ice chips only) but feels her UOP is picking up this morning. Objective Last 8 Hrs Date Time Temp Pulse Resp B/P (MAP) Pulse Ox O2 Delivery O2 Flow Rate FiO2 05/25/17 07:37 37.3 97 16 126/71 (89) 92 Room Air 05/25/17 07:20 Room Air Physical Exam: GEN: WNWD, in no acute distress, alert and appropriate HEENT: NC/AT, pupils are equal bilaterally, normal sclerae, MMM CARDIO: tachy, S1/2 heard without m/g/r LUNGS: CTA bilaterally, no crackles, rales or wheezes, good diaphragmatic excursion ABD: soft, non-tender, non-distended, no rebound or guarding, +BS EXTREMITY: RP and DP palpable 2+ bilat, no LE swelling or edema, extremities are warm and well-perfused. ABD removed and yellow crust was visualized around some of the rachna. No drainage was noted. No erythema was noted. NEURO: CN 2-12 grossly intact MUSC: 5/5 strength throughout, no focal deficits SKIN: warm and dry and wound as above. Laboratory Results: 05/25/17 05:05 05/25/17 05:05 Test 04/23/17 14:37 05/22/17 07:17 05/24/17 06:12 05/25/17 05:05 Prothrombin Time 10.5 SECONDS (9.0-12.0) Prothromb Time International Ratio 1.0 (0.9-1.1) Activated Partial Thromboplast Time 26.4 SECONDS (21.0-31.0) Partial Thromboplastin Ratio 1.0 Total Bilirubin 1.6 mg/dl (0.2-1) Aspartate Amino Transf (AST/SGOT) 67 U/L (15-37) Alanine Aminotransferase (ALT/SGPT) 36 U/L (12-78) Alkaline Phosphatase 46 U/L (45-117) Total Protein 5.9 gm/dl (6.4-8.2) Albumin 2.7 gm/dl (3.4-5.0) Globulin 3.2 gm/dl (2.5-4.0) Albumin/Globulin Ratio 0.8 (0.9-2) Immature Granulocyte % (Auto) 0.4 % White Blood Count 10.36 K/uL (4.8-10.8) Red Blood Count 2.74 M/uL (4.2-5.4) 3.03 M/uL (4.2-5.4) Hemoglobin 8.9 g/dL (12.0-16.0) Hematocrit 26.0 % (37-47) Mean Corpuscular Volume 94.9 fL (80-100) 96.7 fL (80-100) Mean Corpuscular Hemoglobin 32.5 pg (25-34) 32.0 pg (25-34) Mean Corpuscular Hemoglobin Concent 34.2 g/dl (32-36) 33.1 g/dl (32-36) Platelet Count 221 K/uL (130-400) Mean Platelet Volume 10.4 fL (7.4-10.4) 10.6 fL (7.4-10.4) Neutrophils (%) (Auto) 81.8 % Lymphocytes (%) (Auto) 11.2 % Monocytes (%) (Auto) 6.6 % Eosinophils (%) (Auto) 0.0 % Basophils (%) (Auto) 0.0 % Neutrophils # (Auto) 8.48 K/uL (1.4-6.5) Lymphocytes # (Auto) 1.16 K/uL (1.2-3.4) Monocytes # (Auto) 0.68 K/uL (0.11-0.59) Eosinophils # (Auto) 0.00 K/uL (0-0.5) Basophils # (Auto) 0.00 K/uL (0-0.2) Immature Granulocyte # (Auto) 0.04 K/uL (0.00-0.02) Red Blood Cell Morphology Unremarkable Magnesium Level 2.3 mg/dl (1.8-2.4) RDW Standard Deviation 45.0 fL (36.4-46.3) RDW Coefficient of Variation 13.0 % (11.5-14.5) Anion Gap 3.0 mmol/L (3-11) Est Creatinine Clear Calc Drug Dose 46.9 ml/min Estimated GFR () 71.4 Estimated GFR (Non- 61.6 BUN/Creatinine Ratio 20.7 (10-20) Calcium Level 8.5 mg/dl (8.5-10.1) Test 05/25/17 10:42 Date/Time Source Procedure Growth Status 05/25/17 10:42 Blood Blood Culture Pending Ordered 05/25/17 10:40 Drainage - Surface Hip , Right Gram Stain Pending Received 05/25/17 10:40 Drainage - Surface Hip , Right Wound Culture Pending Received Last 24 Hours Test 05/24/17 15:11 05/25/17 05:05 05/25/17 10:42 Hemoglobin 10.0 g/dL 9.7 g/dL Hematocrit 29.9 % 29.3 % White Blood Count 12.25 K/uL Red Blood Count 3.03 M/uL Mean Corpuscular Volume 96.7 fL Mean Corpuscular Hemoglobin 32.0 pg Mean Corpuscular Hemoglobin Concent 33.1 g/dl RDW Standard Deviation 45.0 fL RDW Coefficient of Variation 13.0 % Platelet Count 211 K/uL Mean Platelet Volume 10.6 fL Sodium Level 138 mmol/L Potassium Level 3.8 mmol/L Chloride Level 110 mmol/L Carbon Dioxide Level 25 mmol/L Anion Gap 3.0 mmol/L Blood Urea Nitrogen 18 mg/dl Creatinine 0.88 mg/dl Est Creatinine Clear Calc Drug Dose 46.9 ml/min Estimated GFR () 71.4 Estimated GFR (Non- 61.6 BUN/Creatinine Ratio 20.7 Random Glucose 115 mg/dl Calcium Level 8.5 mg/dl Date/Time Source Procedure Growth Status 05/25/17 10:42 Blood Blood Culture Pending Ordered 05/25/17 10:42 Blood Blood Culture Pending Ordered Assessment & Plan 82yoF s/p R hip replacement with recent hematemesis. She underwent EGD on and was found to have nonbleeding gastric ulcers likely related to NSAID use as well as a large hiatal hernia. She was continued on a PPI drip and NSAIDs for DVT prophylaxis were stopped. She denies any abdominal pain or bloating today and reports feeling well. She has no lightheadedness with ambulation and denies chest pain or shortness of breath. Continues on PPI drip. Nurses report greenish drainage from her wound this morning. Pt reports sweats and fevers overnight and is mildly tachycardic this morning with a slight leukocytosis. She did have some clears for breakfast this morning but didn't eat much of it and reports a low appetite. She denies blood per rectum, nausea or vomiting. Nurses also reported low urine output with foul-smelling urine overnight. Pt denies UTI symptoms including no dysuria, urinary urgency and admits to not drinking much water overnight (was NPO wtih sips and ice chips only) but feels her UOP is picking up this morning. 1. PUD likely 2/2 NSAID use-She was on ASA 325 BID and had several doses of Toradol. EGD as above, PPI drip-will switch to PO BID per GI recs, H/H stable. ASA 81mg ok with GI for DVT prophy. 2. Acute blood loss anemia 2/2 above-stable 3. Leukocytosis-slightly elevated again poss 2/2 an evolving infection. 4. Postop state-s/p r hip replacement. Cont post-op management per Ortho. DC to rehab once cleared medically. Pain well managed and she continues to ambulate with assist. 5. Acute renal failure-resolved. But with borderline BP and recent GI bleed will cont to hold Losartan for now. 6. Hypertension, stable, actually on the lower side. We will hold losartan and monitor for now. 7. Dyslipidemia. Hold simvastatin until GI symptoms resolved. 8. History of breast cancer, currently on Arimidex continue. DVT proph-ASA 81mg , early ambulation Full Code Dispo-need to ensure no evolving infection and that she is tolerating PO prior to heading to rehab. Thank you for this consultation. We are going to follow the patient closely with you. Leena Villanueva DO [facility] Hospitalist ADDENDUM: I was called by the charge nurse about 1-2 hours after seeing Mrs. Carvajal and was told she was distressed and felt unhappy because her doctors had conflicting ideas. I spoke with Mrs. Carvajal by phone and explained to her that although there was a possibility of a surgical site infection with the nurses reporting greenish discharge overnight, her episodes of sweating and malaise overnight, her elevated heart rate and mildly elevated white count, it was my recommendation after speaking further with Dr. Rowe, that we hold off on any antibiotics. I specifically saw no drainage and the wound was clean and dry with rachna intact and no erythema or drainage. There was some minor yellow crusting, which was sampled and sent to the lab. Blood cultures were also drawn and a lactate was drawn and was normal. She continued to be upset with me and tell me that I didn't know what I was doing and that I needed to get my act together because she wasn't impressed. She asked me if I would treat myself or family the way I'm treating her and I said yes and explained that antibiotics are not always benign. I tried a few times to calm her down but she remained very upset and I offered for her to see my colleague moving forward and she agreed. I notified the clinical coordinator communications equipment operator to involve administration if needed as no pt advocate is available this . I also contacted Dr. Rowe and advised him of the situation. Dr. Buck will be seeing her tomorrow. Current Inpatient Medications: Current Inpatient Medications Medications (Trade) Dose Ordered Sig/Jose Route Start Time Stop Time Status Last Admin Dose Admin Acetaminophen (Tylenol Tab) 1,000 mg Q8 PO 05/20/17 15:00 06/19/17 14:59 05/25/17 07:12 1,000 MG Magnesium Hydroxide (Milk Of Magnesia Susp) 30 ml Q6H PRN PO 05/20/17 12:45 06/19/17 12:44 Bisacodyl (Dulcolax Supp) 10 mg DAILY PRN NV 05/20/17 12:45 06/19/17 12:44 05/22/17 20:04 10 MG Senna (Senokot Tab) 17.2 mg HS PO 05/20/17 21:00 06/19/17 20:59 05/23/17 21:27 17.2 MG Docusate Sodium (coLACE CAP) 100 mg BID PO 05/20/17 21:00 06/19/17 20:59 05/25/17 08:35 100 MG Al Hydrox/Mg Hydrox/Simethicone (Maalox Max Susp) 15 ml Q4H PRN PO 05/20/17 12:45 06/19/17 12:44 Zolpidem Tartrate (Ambien Tab) 5 mg HSZ PRN PO 05/21/17 03:00 06/20/17 02:59 Ondansetron HCl (Zofran Inj) 4 mg Q6H PRN IV 05/21/17 03:00 06/20/17 02:59 05/23/17 05:36 4 MG Metoclopramide HCl (Reglan Inj) 10 mg Q6H PRN IV 05/20/17 12:45 06/19/17 12:44 05/23/17 03:10 10 MG Silver Sulfadiazine (Silvadene 1% Crm 50GM Jar) 1 appln BID PRN EXT 05/20/17 12:45 06/19/17 12:44 Tramadol HCl (Ultram Tab) 1 TABLET FOR PAIN RATING... Q4H PRN PO 05/21/17 03:00 06/20/17 02:59 Multivitamins (Multivitamin Tab) 1 tab QPM PO 05/20/17 21:00 06/19/17 20:59 05/23/17 21:27 1 TAB Calcium/Vitamin D (Caltrate Plus Tab) 1 tab QPM PO 05/20/17 21:00 06/19/17 20:59 05/23/17 21:26 1 TAB Cholecalciferol (Vitamin D Tab) 5,000 inter.unit QPM PO 05/20/17 21:00 06/19/17 20:59 05/23/17 21:27 5,000 INTER.UNIT Cyanocobalamin (Vitamin B-12 Tab) 5,000 mcg QPM PO 05/20/17 21:00 06/19/17 20:59 05/23/17 21:27 5,000 MCG Promethazine HCl 25 mg/Sodium Chloride 51 ml @ 204 mls/hr Q6H PRN IV 05/22/17 07:30 06/21/17 07:29 Dextrose/Sodium Chloride 1,000 ml @ 80 mls/hr [id number] IV 05/23/17 02:00 06/22/17 01:59 05/25/17 03:40 80 MLS/HR Bisacodyl (Dulcolax Supp) 10 mg DAILY PRN NV 05/23/17 02:15 06/22/17 02:14 Pantoprazole Sodium 40 mg/ Dextrose 100 ml @ 20 mls/hr Q5H IV 05/23/17 02:30 06/22/17 02:29 05/25/17 09:34 20 MLS/HR Promethazine HCl 12.5 mg/Sodium Chloride 50.5 ml @ 202 mls/hr ONE PRN IV 05/23/17 12:45 Aspirin (Ecotrin Tab) 81 mg QAM PO 05/25/17 09:00 06/24/17 08:59 05/25/17 08:36 81 MG
[2017-05-25] MEDS ORDERED: VANCOMYCIN IV 1,750 MG in SODIUM CHLORIDE 0.9% 500ML 500 ML IV ONE (11:00)
--- NOTE | 2017-05-25 12:49 | NUR ---
A: when going in room to tell patient that we were condensing units and she was going to N/W she looked very upset. When I asked her what was wrong she said she was very upset and didn't know what to think. She said that one doctor told her she had infection and one doctor said they did not think it was infection in her hip. She said that she felt her doctors were not agreeing with each other what her course of treatment should be. The patient feels she should be started on antibiotics as a precautionary measure. I called medical doctor for patient to discuss her concerns.
[2017-05-25] MEDS ORDERED: NURSING VERBAL MED ORDER ONE (14:15)
[2017-05-25 14:59] VITALS: BP 125/70; PULSE 82; TEMP 37; O2SAT 91
[2017-05-25] MEDS: CEPHALEXIN MONOHYDRATE 500 MG CAP PO SCH ×2 (17:24→21:18)
[2017-05-25] MEDS: CALCIUM 600MG + VIT D 400 IU TAB PO SCH (21:19)
[2017-05-25] MEDS: PANTOprazole SOD 40 MG TAB PO SCH (21:20)
[2017-05-25] MEDS: CHOLECALCIFEROL 1000 INTER.UNIT TAB PO SCH (21:20)
[2017-05-25] MEDS: MULTIVITAMIN TAB PO SCH (21:20)
[2017-05-25] MEDS: SENNA 8.6 MG TAB PO SCH (21:21)
[2017-05-25 22:52] VITALS: BP 129/73; PULSE 90; TEMP 36.6; O2SAT 93
[2017-05-25] MEDS: CYANOCOBALAMIN 2,500 MCG SUBL TAB PO SCH (22:57)
[2017-05-26 03:30] VITALS: BP 108/64; PULSE 87; TEMP 37.1; O2SAT 95
--- NOTE | 2017-05-26 05:05 | NUR ---
ID NOTE: Patient is alert and oriented x4. VSS. Patient is tolerating a clear liquid diet at this time. She is OOB with x1 assist and a walker at this time. IV site is intact and patent infusing fluids per MD orders. Pain is controlled with PRN pain medications per MD orders. Call delarosa and bedside table are within reach; she has been encouraged to ring for assistance. D/C to [facility] when cleared.
[2017-05-26] MEDS: ACETAMINOPHEN 500 MG TAB PO SCH ×3 (05:38→21:03)
[2017-05-26] MEDS: D5W AND NSS 1,000 ML IV SCH (05:38)
[2017-05-26] MEDS ORDERED: VANCOMYCIN IV 1,250 MG in SODIUM CHLORIDE 0.9% 250ML 250 ML IV SCH (06:00)
[2017-05-26 06:20] LABS: BASO % 0.1 %; BASO ABS # 0.01 K/uL (0-0.2); EOS % 1.5 %; EOS ABS # 0.21 K/uL (0-0.5); HEMATOCRIT 25.3 % (37-47); HEMOGLOBIN 8.4 g/dL (12.0-16.0); IG# 0.16 K/uL (0.00-0.02); LYMPH ABS # 2.03 K/uL (1.2-3.4); MEAN CELL VOLUME 97.3 fL (80-100); MEAN CORPUSCULAR HEMOGLOBIN 32.3 pg (25-34); MEAN CORPUSCULAR HGB CONC 33.2 g/dl (32-36); MONO % 7.1 %; MONO ABS # 1.03 K/uL (0.11-0.59); NEUT % 76.2 %; NEUT ABS # 11.02 K/uL (1.4-6.5); PLATELET COUNT 232 K/uL (130-400); RED CELL DISTRIBUTION WIDTH CV 13.2 % (11.5-14.5); RED CELL DISTRIBUTION WIDTH SD 46.5 fL (36.4-46.3); WHITE BLOOD COUNT 14.46 K/uL (4.8-10.8)
[2017-05-26 06:50] LABS: CALCIUM 8.2 mg/dl (8.5-10.1); CREATININE 0.73 mg/dl (0.60-1.20); POTASSIUM 3.5 mmol/L (3.5-5.1)
[2017-05-26 07:12] VITALS: BP 129/72; PULSE 82; TEMP 36.9; O2SAT 97
[2017-05-26] MEDS: CEPHALEXIN MONOHYDRATE 500 MG CAP PO SCH ×4 (09:24→21:00)
[2017-05-26] MEDS: PANTOprazole SOD 40 MG TAB PO SCH ×2 (09:24→21:02)
[2017-05-26] MEDS: DOCUSATE SODIUM 100 MG CAP PO SCH ×2 (09:25→20:59)
[2017-05-26] MEDS: ASPIRIN 81 MG ECTAB PO SCH (09:25)
[2017-05-26 11:19] VITALS: BP 144/75; PULSE 84; TEMP 36.8; O2SAT 91
[2017-05-26] MEDS ORDERED: NURSING DECISION MEDICATION ORDER SCH (13:00)
[2017-05-26] MEDS: BISACODYL 10 MG SUPP PR PRN (13:12)
[2017-05-26] MEDS ORDERED: POTASSIUM CHLORIDE 20 MEQ TABCR PO STA (13:15)
[2017-05-26] MEDS ORDERED: ONDANSETRON 4 MG TAB PO PRN (13:15)
--- NOTE | 2017-05-26 13:37 | Progress Note ---
Progress Note Date of Service May 26, 2017. Progress Note Internal Medicine Hospitalist Progress Note - Consultation follow up HPI 82yoF s/p R hip replacement with recent hematemesis. She underwent EGD on and was found to have nonbleeding gastric ulcers likely related to NSAID use as well as a large hiatal hernia. She was continued on a PPI drip and NSAIDs for DVT prophylaxis were stopped Recent Subjective / Objective findings Patient was restarted on aspirin on 05/25/17. hgb on 05/26/17 is downtrended from around 10 to 8.4 Patient denies blood in urine or in stool. Denies worsening swelling of right hip Exam General: No acute distress Lungs: CTABL Heart: Regular rate Abdomen: soft, + bowel sounds, nontender Extremities: right thigh has rachna in place with dressing over the area, nurse to send some serosanguineous fluid for wound culture on 05/26/17 A/P: Postop state-s/p r hip replacement. Wound Culture from 05/25/17 as coagulase negative Staph. Given lack of fevers and that coagulase neg Staph is generally part of skin darrell, it would appear to that IV antibiotics is not needed as this time Patient currently on oral Keflex 500 mg TID. If blood and urine cultures from is negative, then unlikely to need further antibiotics. Continue for now given leukocytosis until those cultures are negative or adjust medications if pertinent culture findings Given correlation between recent drop in Hgb and aspirin dose, would suggest monitoring of Hgb closely given history of PUD especially if aspirin continued. Will repeat CBC later today. If again Hgb is downtrending then consider holding aspirin Acute renal failure-resolved. But with borderline BP and recent GI bleed will cont to hold Losartan for now. Nausea today and oral antiemetics ordered. Hold simvastatin until GI symptoms resolved. Serum potassium 3.5, 40 meq oral potassium ordered to replete low normal potassium vs hypokalemia History of breast cancer, currently on Arimidex continue. DVT proph-ASA 81mg , early ambulation Full Code
--- NOTE | 2017-05-26 14:02 | PROGRESS NOTE ---
DATE: 05/26/2017 CHIEF COMPLAINT: Status post right total hip arthroplasty postop day #6. PROGRESS: Hedy was seen and examined at bedside today. She was just getting out from the bathroom. She is still having trouble having a bowel movement. She has been progressing somewhat clears, but she is still getting a little bit of nausea, and she is still getting some lower stomach pains. She is not in much pain and she is doing very well with her hip. PHYSICAL EXAMINATION: RIGHT HIP: The dressing has been changed. I looked at the dressing from yesterday and there was just a very small amount of serous drainage on it. The dressing that she currently has on has no serous drainage, it is completely dried. The incision looks good. There is no erythema, no signs of infection. IMPRESSION: 1. Status post right total hip arthroplasty postop day #5. 2. Peptic ulcer disease. PLAN: We will continue aspirin 81 mg daily for DVT prophylaxis as well as SUELLEN hose stockings, SCDs and encourage ambulation. Will keep her on Tylenol for pain and keep narcotics to a minimum. We are waiting for gastroenterology to progress her diet. She will be orthopedically stable for discharge to [facility], once she is eating a full diet. I also started her on Keflex 500 mg 4 times a day. There are no signs of infection of her hip but since she is still draining a little bit, at 6 days out, I am concern that a bacteria could find its way in, so we will keep her on the Keflex just prophylactically. I talked to her about at bedside and she is in agreement with that. VANNA
--- NOTE | 2017-05-26 14:30 | NUR ---
A: Pt started complaining of "stomach cramps" around lunch time. States it's from "Not having a bowel movement". Gave patient milk of mag; then she requested something more, gave patient suppository. Patient had a bowel movement, ASSEMBLY RIVETER visualized. Patient is complaining of stomach cramps that are making her sick- requested PO zofran from Dr. Buck (IV infiltrated; IV team could not place another unless it was a PICC). Paged Dr. Whitman with no call back.
[2017-05-26 15:00] VITALS: BP 154/79; PULSE 80; TEMP 37.3; O2SAT 92
[2017-05-26 15:11] LABS: BASO % 0.2 %; BASO ABS # 0.03 K/uL (0-0.2); EOS % 0.8 %; EOS ABS # 0.15 K/uL (0-0.5); HEMATOCRIT 28.9 % (37-47); HEMOGLOBIN 9.6 g/dL (12.0-16.0); IG# 0.49 K/uL (0.00-0.02); LYMPH % 8.6 %; LYMPH ABS # 1.57 K/uL (1.2-3.4); MEAN CELL VOLUME 95.7 fL (80-100); MEAN CORPUSCULAR HEMOGLOBIN 31.8 pg (25-34); MEAN PLATELET VOLUME 10.1 fL (7.4-10.4); MONO % 6.5 %; MONO ABS # 1.19 K/uL (0.11-0.59); NEUT % 81.2 %; NEUT ABS # 14.83 K/uL (1.4-6.5); PLATELET COUNT 273 K/uL (130-400); RED CELL DISTRIBUTION WIDTH SD 45.3 fL (36.4-46.3); WHITE BLOOD COUNT 18.26 K/uL (4.8-10.8)
[2017-05-26 15:12] LABS: MEAN CORPUSCULAR HGB CONC 33.2 g/dl (32-36)
[2017-05-26] MEDS: SENNA 8.6 MG TAB PO SCH (20:59)
[2017-05-26] MEDS: CHOLECALCIFEROL 1000 INTER.UNIT TAB PO SCH (21:00)
[2017-05-26] MEDS: CALCIUM 600MG + VIT D 400 IU TAB PO SCH (21:01)
[2017-05-26] MEDS: MULTIVITAMIN TAB PO SCH (21:02)
[2017-05-26] MEDS: CYANOCOBALAMIN 2,500 MCG SUBL TAB PO SCH (21:04)
[2017-05-26 23:00] VITALS: BP 133/73; PULSE 82; TEMP 36.7; O2SAT 94
[2017-05-26] MEDS: LOSARTAN POTASSIUM 50 MG TAB PO SCH (23:01)
[2017-05-27] VITALS (12 sets, daily range): BP systolic 119–163; BP diastolic 52–78; PULSE 74–147; TEMP 36.5–36.9; O2SAT 92–96
--- NOTE | 2017-05-27 03:41 | NUR ---
ID NOTE: Patient is alert and oriented x4. VSS. Patient is tolerating a clear liquid diet at this time. She is OOB with x1 assist and a walker. IV site is intact and saline locked. Pain is controlled with PRN pain medications per MD orders; patient is denying pain. Call delarosa and bedside table are within reach; she has been encouraged to ring for assistance. D/C to [facility].
--- NOTE | 2017-05-27 04:40 | NUR ---
A NOTE: Patient resting comfortably in bed at this time; EKG being completed at this time by 2 PCU nurses; Dr. Vasquez at patients bedside. stated that patient would be transferred to tele unit.
[2017-05-27] MEDS ORDERED: METOPROLOL TARTRATE 1 MG/ML VIAL IV PRN (04:45)
--- NOTE | 2017-05-27 04:50 | NUR ---
A NOTE: Transfer report given to Joel in PCU at this time.
[2017-05-27] MEDS ORDERED: METOPROLOL TARTRATE 1 MG/ML VIAL IV STA (04:59)
[2017-05-27] MEDS ORDERED: METOPROLOL TARTRATE 25 MG TAB PO ONE (05:00)
--- NOTE | 2017-05-27 05:00 | NUR ---
PT RECEIVED INTO ICU-7 TELEMETRY,VSS,SR PER MONITOR,EKG OBTAINED,IV STARTED BY IV TEAM,NAVA AT BEDSIDE,DENIES CURRENT PAIN,CALL HAAS IN REACH,WILL CONTINUE TO MONITOR
--- NOTE | 2017-05-27 05:06 | Progress Note ---
Progress Note Date of Service May 27, 2017. Progress Note at 4am, called by RN as patient's HR was 140s irregular with routine VS, BP 124/ 64, asymptomatic EKG done, (+) A fib in RVR HR 139 patient seen at bedside, comfortable, denies chest pain, dyspnea, palpitations, dizziness, nausea, no other symptoms tachycardic, irregularly irregular rhythm clear breath sounds bilaterally Lopressor 5mg IV stat ordered, while awaiting IV site transferred to ICU at 0445 upon arrival to the ICU, patient had converted back to Sinus rhythm, HR 97, bp systolic 160s, denies symptoms NEW ONSET/POSSIBLE PAROXYSMAL ATRIAL FIBRILLATION - patient reports reading in her records that during her breast lumpectomy 5 years ago, about having a fib no cardiac history per Epic records - Metoprolol tartrate 12.5mg po one dose ordered (avoiding anticoagulation at this point secondary to upper GI bleed 4 days ago ) work up: CBC, PRP, Mg, TSH echo Cardiology consulted - case discussed with patient at length and she is agreeable/comfortable with plan of care Lucio Vasquez MD
[2017-05-27 05:18] LABS: BASO % 0.1 %; BASO ABS # 0.02 K/uL (0-0.2); EOS % 1.8 %; EOS ABS # 0.26 K/uL (0-0.5); HEMATOCRIT 29.4 % (37-47); HEMOGLOBIN 9.9 g/dL (12.0-16.0); IG# 0.47 K/uL (0.00-0.02); LYMPH % 12.7 %; LYMPH ABS # 1.87 K/uL (1.2-3.4); MEAN CELL VOLUME 95.8 fL (80-100); MEAN CORPUSCULAR HEMOGLOBIN 32.2 pg (25-34); MEAN PLATELET VOLUME 9.9 fL (7.4-10.4); MONO % 7.8 %; MONO ABS # 1.15 K/uL (0.11-0.59); NEUT % 74.4 %; NEUT ABS # 10.93 K/uL (1.4-6.5); PLATELET COUNT 274 K/uL (130-400); RED CELL DISTRIBUTION WIDTH CV 13.1 % (11.5-14.5); RED CELL DISTRIBUTION WIDTH SD 45.6 fL (36.4-46.3)
[2017-05-27 05:19] LABS: MEAN CORPUSCULAR HGB CONC 33.7 g/dl (32-36)
[2017-05-27] MEDS: ACETAMINOPHEN 500 MG TAB PO SCH ×3 (05:23→21:05)
[2017-05-27 05:41] LABS: CALCIUM 8.9 mg/dl (8.5-10.1); CREATININE 0.77 mg/dl (0.60-1.20); POTASSIUM 3.7 mmol/L (3.5-5.1)
[2017-05-27] MEDS ORDERED: PERFLUTREN LIPID MICROSPHERE (DEFINITY) IV ONE (06:49)
--- NOTE | 2017-05-27 07:30 | NUR ---
Case Management: Pt transferred to room 107-1 after EKG showed a-fib with RVR. Progress notes indicate pt converted to sinus rhythm upon arrival to ICU. Pt was admitted on 05/20/17 for elective Right Total Hip Arthroplasty. Post surgery pt had episodes of hematemesis. EGD completed on 05/23/17 showed large intrathoracic stomach and some superficial ulcerations. Pt is receiving clear liquid diet. Pt lives with her and granddaughter. Discharge plan is for her to go to [facility]. She is accepted and does not need insurance authorization. We will need to check bed availability. Pt to decide mode of transport on day of discharge but likely her will transport her. Unit Dowel Sander Operator given report and will follow.
--- NOTE | 2017-05-27 07:40 | NUR ---
PATIENT ASSESSED, DENIED DISCOMFORTS, SOB ON ROOM AIR O2. VSS. SMALL AMOUNT OF SEROUS DRAINAGE NOTED ON HIP DRESSING. PATIENT DENIED NEED FOR ANALGESICS AT THIS TIME. CARDIAC RHYTHM STABLE WITH NO AFIB RVR NOTED THIS SHIFT. PATIENT ASSISTED OOB TO BSC TO HAVE LARGE, BLACK, SOFT STOOL. NO BLOOD NOTED. ACTIVITY TOLERATED WELL.
[2017-05-27] MEDS: ASPIRIN 81 MG ECTAB PO SCH (07:54)
[2017-05-27] MEDS: DOCUSATE SODIUM 100 MG CAP PO SCH ×2 (07:54→21:04)
[2017-05-27] MEDS: CEPHALEXIN MONOHYDRATE 500 MG CAP PO SCH ×4 (07:54→21:03)
[2017-05-27] MEDS: PANTOprazole SOD 40 MG TAB PO SCH ×2 (07:58→21:05)
--- NOTE | 2017-05-27 10:19 | Progress Note ---
Internal Med Progress Note Date of Service: May 27, 2017. Provider Documentation: SUBJECTIVE: Seen and examine yuri bedside Denies chest pain, SOB, dizziness, palpitations Also denies pain at surgical site Patient had Afib RVR overnight but asymptomatic OBJECTIVE: Vital Signs-as noted below Physical Exam: General Appearance:Moderately built and nourished, no apparent distress Head: normocephalic, Atraumatic Eyes: normal inspection, EOMI, PERRL Neck: supple, Trachea midline Respiratory/Chest: Normal breath sounds, CTA Cardiovascular: S1, S2, No murmur Abdomen/GI:Soft, Non tender, Bowel sounds present Extremities/Musculoskelatal:normal inspection, no edema, Right hip in surgical dressing Neurologic/Psych:AAOX3, grossly no focal neurological deficits Skin: normal color, warm Lab data as noted below. ASSESSMENT & PLAN: S/P Right total hip arthroplasty: wound Culture: coagulase negative Staph Continue oral Keflex 500 mg TID for prophylaxis Blood cultures: Negative Repeat Wound culture: pending On Aspirin 81mg given PUD Monitor Hb Orthopedics following Diet per GI Planned to be discharged to [facility] when able New Onset P.Afib: Had H/O afib during her breast lumpectomy 5 years ago Continue Metoprolol 12.5mg BID Cardiology Consulted No Anticoagulation for now given recent GI bleed PUD: S/P EGD Continue PPI Appreciate GI help Needs Outpatient surgery follow up for management of hiatal hernia. Acute renal failure: resolved Cr back to baseline H/O breast cancer on Arimidex DVT Px: ASA 81mg, given Recent GI bleed Code Status: Full Code Vital Signs: Date Time Temp Pulse Resp B/P (MAP) Pulse Ox O2 Delivery O2 Flow Rate FiO2 05/27/17 07:45 95 Room Air 05/27/17 07:45 36.5 81 18 119/52 (74) 95 Room Air 05/27/17 05:00 91 16 163/78 (106) 93 Room Air 05/27/17 04:50 36.7 147 16 92 05/27/17 04:08 147 05/27/17 03:55 36.7 113 16 124/64 (84) 92 Room Air 05/26/17 23:50 Room Air 05/26/17 23:00 36.7 82 16 133/73 (93) 94 Room Air 1/1/18 15:15 Room Air 05/26/17 15:00 37.3 80 16 154/79 (104) 92 Room Air 05/26/17 11:19 36.8 84 16 144/75 (98) 91 Room Air Lab Results: Results Past 24 Hours Test 05/26/17 14:57 05/27/17 05:00 Range/Units White Blood Count 18.26 14.70 4.8-10.8 K/uL Red Blood Count 3.02 3.07 4.2-5.4 M/uL Hemoglobin 9.6 9.9 12.0-16.0 g/dL Hematocrit 28.9 29.4 37-47 % Mean Corpuscular Volume 95.7 95.8 80-100 fL Mean Corpuscular Hemoglobin 31.8 32.2 25-34 pg Mean Corpuscular Hemoglobin Concent 33.2 33.7 32-36 g/dl Platelet Count 273 274 130-400 K/uL Mean Platelet Volume 10.1 9.9 7.4-10.4 fL Neutrophils (%) (Auto) 81.2 74.4 % Lymphocytes (%) (Auto) 8.6 12.7 % Monocytes (%) (Auto) 6.5 7.8 % Eosinophils (%) (Auto) 0.8 1.8 % Basophils (%) (Auto) 0.2 0.1 % Neutrophils # (Auto) 14.83 10.93 1.4-6.5 K/uL Lymphocytes # (Auto) 1.57 1.87 1.2-3.4 K/uL Monocytes # (Auto) 1.19 1.15 0.11-0.59 K/uL Eosinophils # (Auto) 0.15 0.26 0-0.5 K/uL Basophils # (Auto) 0.03 0.02 0-0.2 K/uL RDW Standard Deviation 45.3 45.6 36.4-46.3 fL RDW Coefficient of Variation 13.0 13.1 11.5-14.5 % Immature Granulocyte % (Auto) 2.7 3.2 % Immature Granulocyte # (Auto) 0.49 0.47 0.00-0.02 K/uL Sodium Level 140 136-145 mmol/L Potassium Level 3.7 3.5-5.1 mmol/L Chloride Level 110 98-107 mmol/L Carbon Dioxide Level 24 21-32 mmol/L Anion Gap 6.0 3-11 mmol/L Blood Urea Nitrogen 12 7-18 mg/dl Creatinine 0.77 0.60-1.20 mg/dl Est Creatinine Clear Calc Drug Dose 53.7 ml/min Estimated GFR () 83.9 Estimated GFR (Non- 72.4 BUN/Creatinine Ratio 15.7 10-20 Random Glucose 103 70-99 mg/dl Calcium Level 8.9 8.5-10.1 mg/dl Magnesium Level 2.2 1.8-2.4 mg/dl Thyroid Stimulating Hormone (TSH) 1.860 0.300-4.500 uIu/ml Microbiology Results 05/26/17 Gram Stain - Final, Resulted 05/26/17 Wound Culture, Resulted Pending
--- NOTE | 2017-05-27 10:25 | Cardiology Consultation ---
Cardiology Consultation Date of Consultation: May 27, 2017 Requesting Physician: Dr. Vasquez Attending Farm Rancher: Dr. Montalvo (Marjorie Allison PA-C) History of Present Illness Patient is a 82 year old female with history of hypertension, dyslipidemia, prior breast CA, recently admitted for elective total right hip arthroplasty on 05/20. Post op course complicated by upper GI bleed with EGD revealing gastric ulcerations, likely due to excessive NSAID use. Treated with PPI. Advancing diet as tolerated. Yesterday patient was found to be tachycardic on routine vital signs, EKG revealing AFIB with RVR. Transferred to telemetry/ICU. Treated with IV metoprolol and oral metoprolol 12.5 mg. She successfully converted to NSR. No anticoagulation initiated due to recent GI bleed. Patient was asymptomatic with arrhythmia. Chart reviewed, she did have paroxysmal afib in 2016 during dobutamine stress echo. No other known history of arrhythmias or cardiovascular disease. Dobutamine was negative for inducible ischemia at that time. At time of consult, patient feeling well. Notes improvement in her abdominal discomfort after having 2 BM last night/this morning. Denies symptoms of chest pain or SOB. No palpitations or tachypalpitations. no dizziness, syncope or near syncope. No orthopnea, PND or edema. Anxious for discharge to rehab when possible. (Marjorie Allison PA-C) Past Medical/Surgical History Problem List: Medical Problems: (1) Benign neoplasm of colon (2) Breast cancer (3) Dyslipidemia (4) Right Hip DJD (5) Venous insufficiency Surgical Problems: (1) H/O colonoscopy (2) H/O esophagogastroduodenoscopy (3) H/O partial mastectomy (4) S/P appendectomy (5) S/p laparoscopy with fulguration of oviducts (6) S/P right oophorectomy (7) S/P tonsillectomy and adenoidectomy (Marjorie Allison PA-C) Family History FH: cancer FH: diabetes mellitus FH: hypertension FH: lung disease FH: seizures FHx: heart disease (Marjorie Allison PA-C) FH: cancer FH: diabetes mellitus FH: hypertension FH: lung disease FH: seizures FHx: heart disease (Cesar Montalvo D.O.) Social History Smoking Status: Never Smoker Drug Use: none Marital Status: Occupation: employed (Marjorie Allison PA-C) Review Of Systems See above for pertinent positives & negatives. A total of 10 systems reviewed and were otherwise negative. (Marjorie Allison PA-C) Allergies Coded Allergies: No Known Allergies (Verified , 10/09/15) Medications Reported Home Medications Medications Dose Route/Sig Max Daily Dose Days Date Category Dose Instructions Tramadol HCl 50 Mg Tab 50-100 Mg PO Q6H PRN 30 05/20/17 Rx Take as needed for Pain. Aspirin 325 Mg Ectab 325 Mg PO BID 45 05/20/17 Rx Take to prevent blood clots. Sb Non-Aspirin Extra Stre (Acetaminophen) 500 Mg Tab 1,000 Mg PO Q8 30 05/20/17 Rx Take 3 times per day to lessen pain. Ferrous Gluconate 324 Mg Tab 324 Mg PO BIDM 30 05/20/17 Rx Take to restore blood count. Fosamax (Alendronate Sodium) 70 Mg Tab 1 Tab PO WK 28 04/23/17 Reported Vitamin B-12 (Cyanocobalamin) 5,000 Mcg Sub 1 Tab PO QPM 04/23/17 Reported Calcium (Calcium Carbonate) 600 Mg Tab 1 Tab PO QPM 04/23/17 Reported Vitamin D3 (Cholecalciferol) 5,000 Unit Cap 1 Tab PO QPM 04/23/17 Reported Naprosyn (Naproxen) 250 Mg Tab 250 Mg PO DAILY PRN 01/19/17 Reported Ocuvite Preservision (Multivitamins/Minerals) 1 Tab Tab 1 Tab PO QPM 01/19/17 Reported Glucosamine/Chondroitin (Glucosamine-Chondroitin) 1 Cap Cap 1 Cap PO QPM 01/19/17 Reported Aspirin Ec (Aspirin) 81 Mg Tab 81 Mg PO QPM 01/19/17 Reported Cozaar (Losartan Potassium) 50 Mg Tab 50 Mg PO QPM 12/05/15 Reported Zocor (Simvastatin) 20 Mg Tab 20 Mg PO QPM 04/03/12 Reported Multivitamin (Multivitamins) Tab 1 Tab PO QPM 03/16/11 Reported (Marjorie Allison PA-C) Physical Exam Vital Signs (Last 8hrs): Last 8 Hrs Date Time Temp Pulse Resp B/P (MAP) Pulse Ox O2 Delivery O2 Flow Rate FiO2 05/27/17 05:00 91 16 163/78 (106) 93 Room Air 05/27/17 04:50 36.7 147 16 92 05/27/17 04:08 147 05/27/17 03:55 36.7 113 16 124/64 (84) 92 Room Air General Appearance: Alert and Oriented x3. NAD. Head: Normocephalic Atraumatic. Eyes: PERRLA, EOMI, conjunctiva and sclera clear Neck: Supple. No carotid bruits noted. No JVD. No HJD. Respiratory: Breath sounds clear to auscultation bilaterally. No w/r/r. Cardiovascular: Reg rate and rhythm. S1 and S2 noted. No murmurs, rubs, gallops. PMI non displace. Abdomen: Normal bowel sounds, soft nontender. no abdominal bruits. Extremities: No edema, no clubbing or cyanosis. distal pulses 2/4 bilaterally. Neuro: No focal deficits. Psychiatric: Normal affect. (Marjorie Allison, CARLOS ALBERTO) Data Last 24 Hours Test 05/26/17 14:57 05/27/17 05:00 White Blood Count 18.26 K/uL 14.70 K/uL Red Blood Count 3.02 M/uL 3.07 M/uL Hemoglobin 9.6 g/dL 9.9 g/dL Hematocrit 28.9 % 29.4 % Mean Corpuscular Volume 95.7 fL 95.8 fL Mean Corpuscular Hemoglobin 31.8 pg 32.2 pg Mean Corpuscular Hemoglobin Concent 33.2 g/dl 33.7 g/dl Platelet Count 273 K/uL 274 K/uL Mean Platelet Volume 10.1 fL 9.9 fL Neutrophils (%) (Auto) 81.2 % 74.4 % Lymphocytes (%) (Auto) 8.6 % 12.7 % Monocytes (%) (Auto) 6.5 % 7.8 % Eosinophils (%) (Auto) 0.8 % 1.8 % Basophils (%) (Auto) 0.2 % 0.1 % Neutrophils # (Auto) 14.83 K/uL 10.93 K/uL Lymphocytes # (Auto) 1.57 K/uL 1.87 K/uL Monocytes # (Auto) 1.19 K/uL 1.15 K/uL Eosinophils # (Auto) 0.15 K/uL 0.26 K/uL Basophils # (Auto) 0.03 K/uL 0.02 K/uL RDW Standard Deviation 45.3 fL 45.6 fL RDW Coefficient of Variation 13.0 % 13.1 % Immature Granulocyte % (Auto) 2.7 % 3.2 % Immature Granulocyte # (Auto) 0.49 K/uL 0.47 K/uL Sodium Level 140 mmol/L Potassium Level 3.7 mmol/L Chloride Level 110 mmol/L Carbon Dioxide Level 24 mmol/L Anion Gap 6.0 mmol/L Blood Urea Nitrogen 12 mg/dl Creatinine 0.77 mg/dl Est Creatinine Clear Calc Drug Dose 53.7 ml/min Estimated GFR () 83.9 Estimated GFR (Non- 72.4 BUN/Creatinine Ratio 15.7 Random Glucose 103 mg/dl Calcium Level 8.9 mg/dl Magnesium Level 2.2 mg/dl Thyroid Stimulating Hormone (TSH) 1.860 uIu/ml EKG on 05/27/17: Afib RVR at [address]/T wave changes Repeat EKG 05/27/17: NSR, improved ST/T wave abnormality compared with prior. Telemetry reviewed: NSR with occ PVC, PAC. No recurrent atrial fibrillation. Prior Data reviewed: 2D echocardiogram at [facility] 09/2015: A complete two-dimensional transthoracic echocardiogram was performed (2D, M- mode, Doppler and color flow Doppler). The left ventricular wall motion is normal. There is mild concentric left ventricular hypertrophy. Left ventricular systolic function is normal. Ejection Fraction = 60-65%. There is mild mitral regurgitation. There is mild tricuspid regurgitation. Diastolic dysfunction, Grade II (pseudonormalization pattern Dobutamine Stress Echo report reviewed, [facility] 09/2015: Interpretation Summary The left ventricle is normal in size.There is mild concentric left ventricular hypertrophy.Left ventricular systolic function is normal.The resting LV Ejection Fraction = 60-65%. STRESS STUDY: Normal pharmacologic stress echocardiogram. No echocardiographic or ECG evidence of myocardial ischemia having achieved heart rate adequate for diagnostic purposes. Transient atrial fibrillation was noted in the post stress recovery interval , that was very brief only lasting a few seconds followed by spontaneous conversion to sinus rhythm. No symptoms suggestive of angina were induced. Transient back pain was noted that resolved with ceasing the dobutamine infusion. The heart rate response to pharmacologic stress was appropriate. The blood pressure response to pharmacologic stress was appropriate. (Marjorie Allison PA-C) Assessment & Plan ASSESSMENT: 1. Paroxysmal atrial fibrillation, converting to NSR with IV metoprolol. 2. Post op right total hip arthroplasty 3. Hypertension 4. Upper GI bleed secondary to gastric ulcerations, symptoms improving. PLAN: Initiate metoprolol tartrate 12.5 mg BID Continue ASA 81 mg daily Not deemed an anticoagulation candidate at this time due to recent gastric ulcerations and history of anemia. Case discussed with Dr. Montalvo. Will follow. (Marjorie Allison PA-C) CARDIOLOGY ATTENDING ADDENDUM: The patient was seen and personally examined. Agree with Marjorie Allison PA-C's findings and plans as documented above with additions as noted below. Subjective: Patient without symptoms from a cardiac perspective. She apparently had no symptoms suggestive of palpitations, and the elevated heart rates were noted on routine vital sign evaluation. Exam: Cardiac vascular regular rhythm, extremities no edema Impression: As above Plan: Proceed with low-dose metoprolol, enteric-coated aspirin. Not an anticoagulation candidate due to recent gastrointestinal bleeding. (Cesar Montalvo,Gladis.O.)
--- NOTE | 2017-05-27 11:28 | NUR ---
PATIENT IN CHAIR, REASSESSED, STABLE. SEE VS DATA. HIP DRESSING REMAINED WNL WITH SMALL AMOUNT OF SEROUS DRAINAGE NOTED. PATIENT HAS DENIED NEED FOR ANALGESICS SO FAR THIS SHIFT. PATIENT HAS AMBULATED WITH SUPERVISION OR MINIMAL ASSIST TO SINK AND CHAIR WELL BSC AND HAS TOLERATED WELL.
--- NOTE | 2017-05-27 14:30 | NUR ---
PATIENT TRANSFERRED TO PCU VIA BED WITH ALL BELONGINGS BY ACLS PERSONNEL. DAUGHTER AND PATIENT NOTIFIED OF NEW ROOM NUMBER.
--- NOTE | 2017-05-27 14:50 | ECHOCARDIOGRAM REPORT ---
*NOTICE TO RECEIVING CONSTITUTION PARTY AGENCY This information is strictly Confidential and protected under [place] law. [place] law prohibits you from making any further disclosure of this information unless further disclosure is expressly permitted by the written consent of the person to whom it pertains or is authorized by law. A general authorization for the release of medical or other information is not sufficient for this purpose. Hospital accepts no responsibility if the information is made available to any other person, INCLUDING THE PATIENT. Interpretation Summary * Name: SAMANTA GORDILLO Study Date: 05/27/2017 06:22 AM BP: 163/78 mmHg * [facility] HR: 91 * : 1935 (M/d/yyyy) Gender: Female Height: 62 in * Age: 82 yrs Ethnicity: CA Weight: 161 lb * Ordering Physician: Raphael Vasquez * Referring Physician: Cesar Fong * Performed By: Laurel Hilario RDCS * * Reason For Study: Atrial Fibrillation * BSA: 1.7 m2 * The study was technically adequate. * -- Conclusions -- * Sinus rhythm at 74 bpm was present during the echocardiogram. * The left ventricular wall motion is normal. * Ejection Fraction = 60-65%. * There is mild mitral annular calcification. * There is mild mitral regurgitation. * There is mild tricuspid regurgitation. Procedure Details * A complete two-dimensional transthoracic echocardiogram was performed (2D, M-mode, Doppler and color flow Doppler). * The study was technically difficult. * The study was technically difficult, but visualization was adequate with the administration of Definity ultrasound contrast. * There were technical limitations due to patient'spoor positioning * A contrast injection of Definity was performed to improve assessment of LV function. * Contrast was injected into an intravenous site in the left arm. * One vial of Definity ultrasound contrast was diluted in normal saline to a total volume of 10 ml. A total of '2' ml of solution was administered during imaging. * Lot # [id number] of Definity utilized for procedure. * Expiration date . * The attending nurse who injected the contrast agent was Seth Rodriguez RN. Left Ventricle * The left ventricle is normal in size. * There is normal left ventricular wall thickness. * Ejection Fraction = 60-65%. * Left ventricular systolic function is normal. * The left ventricular wall motion is normal. Right Ventricle * The right ventricle is normal size. * The right ventricular systolic function is normal as assessed by tricuspid annular plane systolic excursion (TAPSE) (normal >1.5 cm). Atria * The left atrial size is normal. * Right atrial size is normal. * There is no evidence of atrial septal defect, but resolution does not allow assessment for a patent foramen ovale. Mitral Valve * There is mild mitral annular calcification. * There is no mitral valve stenosis. * There is mild mitral regurgitation. Tricuspid Valve * The tricuspid valve is normal. * There is no tricuspid stenosis. * There is mild tricuspid regurgitation. Aortic Valve * The aortic valve is trileaflet. * Aortic stenosis is absent. * There is no significant aortic regurgitation. Pulmonic Valve * The pulmonary valve is not well seen, but the Doppler examination is normal without significant regurgitation or stenosis. Great Vessels * The aortic root and proximal ascending aorta are normal sized. Pericardium/Pleural * There is no pericardial effusion. Great Vessels * Normal inferior vena cava diameter and respiratory variation suggests normal central venous pressure. Left Ventricular Diastolic Function * Grade I diastolic dysfunction, (abnormal relaxation pattern). MMode 2D Measurements and Calculations IVSd 0.96 cm IVSs 1.2 cm LVIDd 4.0 cm LVIDs 2.6 cm LVPWd 0.98 cm LVPWs 1.5 cm IVS/LVPW 0.98 FS 34.6 % EDV(Teich) 68.3 ml ESV(Teich) 24.4 ml EF(Teich) 64.3 % EDV(cubed) 62.0 ml ESV(cubed) 17.4 ml EF(cubed) 72.0 % % IVS thick 26.1 % % LVPW thick 53.8 % LV mass(C)d 119.7 grams LV mass(C)dI 68.6 grams/m\S\2 LV mass(C)s 110.4 grams LV mass(C)sI 63.3 grams/m\S\2 SV(Teich) 43.9 ml SI(Teich) 25.2 ml/m\S\2 SV(cubed) 44.7 ml SI(cubed) 25.6 ml/m\S\2 Ao root diam 2.6 cm Ao root area 5.3 cm\S\2 ACS 1.6 cm LA dimension 3.0 cm LA/Ao 1.2 LVAd ap4 25.5 cm\S\2 LVLd ap4 7.4 cm EDV(MOD-sp4) 70.7 ml EDV(sp4-el) 74.1 ml LVAs ap4 13.4 cm\S\2 LVLs ap4 6.4 cm ESV(MOD-sp4) 24.4 ml ESV(sp4-el) 24.0 ml EF(MOD-sp4) 65.5 % EF(sp4-el) 67.6 % LVAd ap2 23.4 cm\S\2 LVLd ap2 7.2 cm EDV(MOD-sp2) 62.8 ml EDV(sp2-el) 65.2 ml LVAs ap2 14.1 cm\S\2 LVLs ap2 6.6 cm ESV(MOD-sp2) 25.1 ml ESV(sp2-el) 25.6 ml EF(MOD-sp2) 60.0 % EF(sp2-el) 60.7 % LVLd %diff -4.09 % EDV(MOD-bp) 67.7 ml LVLs %diff 2.8 % ESV(MOD-bp) 25.1 ml EF(MOD-bp) 62.9 % SV(MOD-sp4) 46.3 ml SI(MOD-sp4) 26.5 ml/m\S\2 SV(MOD-sp2) 37.7 ml SI(MOD-sp2) 21.6 ml/m\S\2 SV(MOD-bp) 42.6 ml SI(MOD-bp) 24.4 ml/m\S\2 SV(sp4-el) 50.1 ml SI(sp4-el) 28.8 ml/m\S\2 SV(sp2-el) 39.6 ml SI(sp2-el) 22.7 ml/m\S\2 Doppler Measurements and Calculations MV E max keiko 87.3 cm/sec MV A max keiko 103.8 cm/sec MV E/A 0.84 MV dec time 0.18 sec Ao V2 max 147.7 cm/sec Ao max PG 8.7 mmHg Ao max PG (full) 4.0 mmHg LV V1 max PG 4.8 mmHg LV V1 max 109.1 cm/sec PA V2 max 111.1 cm/sec PA max PG 4.9 mmHg PI max keiko 186.8 cm/sec PI max PG 14.0 mmHg PI dec slope 312.3 cm/sec\S\2 PI P1/2t 175.2 msec TR max keiko 249.0 cm/sec
--- NOTE | 2017-05-27 16:00 | NUR ---
Pt assessed at this time. she is oriented and appropriate. denies pain or shortness of breath. lungs are clear. vital signs stable on room air. tolerating diet and po fluids. denies n/v/d. nsr 70s on cardiac catheterization technician. 1+ lower extremity edema noted. scds in place bilaterally. right hip with rachna intact. abd and medipore dressing replaced. left hand saline lock patent. oob with walker and 1 assist. call delarosa in reach. needs addressed. will continue to monitor.
[2017-05-27] MEDS ORDERED: VANCOMYCIN TROUGH ONE (17:30)
--- NOTE | 2017-05-27 18:11 | PROGRESS NOTE ---
DATE: 05/27/2017 CHIEF COMPLAINT: Status post right total hip arthroplasty postop day #7. PROGRESS: Hedy was seen and examined at bedside today. She is now in the PCU on telemetry. She did have an episode of paroxysmal AFib that spontaneously converted when she was given her metoprolol. Cardiology was consulted. An echocardiogram was done. At this point, she is in normal sinus rhythm and doing well. Her diet has also been progressed, she just ate a little bit for dinner and that is the first solid food that she has eaten. She says that she feels really good. She has had multiple bowel movements. She has no pain in her hip and has been up and ambulating. She has no other complaints. PHYSICAL EXAMINATION: RIGHT HIP: The incision is clean and dry. There are no signs of erythema, no signs of infection. There is a very very minimal amount of serous drainage on the dressing. This seems about normal for a week postop. Her leg lengths are equal. She is neurovascularly intact. IMPRESSION: 1. Status post right total hip arthroplasty postop day #7. 2. Peptic ulcer disease. 3. Paroxysmal atrial fibrillation that converted with metoprolol. PLAN: At this point she seems to be doing much better. We will see how she tolerates her diet tonight and tomorrow morning. She is ambulating well with physical therapy. She is on aspirin 81 mg daily for DVT prophylaxis. I would think that if she can handle a regular diet tomorrow morning and there is a bed available at [facility] that she would be able to be discharged tomorrow. We will see how she does.
--- NOTE | 2017-05-27 20:00 | NUR ---
Pt assessed. denies pain or shortness of breath. lungs are clear. vital signs stable on room air. tolerating diet advanced to aha diet. denies n/v/d. nsr 70s on hospital manager. 1+ lower extremity edema noted. scds and teds in place bilaterally. right hip dressing intact. left hand saline lock patent. oob with walker and 1 assist. call delarosa in reach. needs addressed. will continue to monitor.
[2017-05-27] MEDS: SENNA 8.6 MG TAB PO SCH (21:04)
[2017-05-27] MEDS: CYANOCOBALAMIN 2,500 MCG SUBL TAB PO SCH (21:05)
[2017-05-27] MEDS: MULTIVITAMIN TAB PO SCH (21:05)
[2017-05-27] MEDS: METOPROLOL TARTRATE 25 MG TAB PO SCH (21:06)
[2017-05-27] MEDS: CHOLECALCIFEROL 1000 INTER.UNIT TAB PO SCH (21:08)
[2017-05-27] MEDS: LOSARTAN POTASSIUM 50 MG TAB PO SCH (21:08)
[2017-05-27] MEDS: CALCIUM 600MG + VIT D 400 IU TAB PO SCH (21:08)
[2017-05-28] VITALS (8 sets, daily range): BP systolic 125–145; BP diastolic 65–87; PULSE 70–91; TEMP 37.1–37.2; O2SAT 92–96
--- NOTE | 2017-05-28 00:10 | NUR ---
A: Pt A&Ox4, tolerating AHA diet. Pt denies and nausea/vomiting at this time. Pt resting comfortably in bed. Pt ambulates with 1 assist and walker out of bed. Dressings CDI. Allevyn to sacrum. Right limb restrictions. Pt saline locked. Pain medications per MD order. Call delarosa within reach, side rails up x2, will continue to monitor
--- NOTE | 2017-05-28 04:10 | NUR ---
A: Pt A&Ox4, assessment unchanged. Pt denies and nausea/vomiting at this time. Pt resting comfortably in bed. Pt ambulates with 1 assist and walker out of bed. Dressings CDI. Allevyn to sacrum. Right limb restrictions. Pt saline locked. Pain medications per MD order. Call delarosa within reach, side rails up x2, will continue to monitor
[2017-05-28] MEDS: ACETAMINOPHEN 500 MG TAB PO SCH ×2 (06:26→14:08)
[2017-05-28] MEDS ORDERED: KFL500 PO (06:36)
--- NOTE | 2017-05-28 07:29 | PROGRESS NOTE ---
DATE: 05/28/2017 CHIEF COMPLAINT: Status post right total hip arthroplasty postop day #8. PROGRESS: Hedy was seen and examined at bedside this morning. She was able to tolerate dinner last evening. She feels hungry and she feels she will be able to eat breakfast this morning. She is feeling much better at this time. She is not having any pain in her hip and she is doing quite well with that. She has no other complaints. PHYSICAL EXAMINATION: The incision is clean and dry. There are no signs of erythema, no signs of infection. There is a very, very minimal amount of serous drainage on the dressing this morning. Her leg lengths are equal. She is neurovascularly intact. IMPRESSION: 1. Status post right total hip arthroplasty postop day #8. 2. Peptic ulcer disease. 3. Paroxysmal atrial fibrillation converted with Metoprolol. PLAN: She seems to be doing well at this point. She tolerated dinner last night. We will see how she does with breakfast this morning. We will continue aspirin 81 mg daily for DVT prophylaxis. I want her to continue the Keflex 500 mg 4 times a day for another 10 days which will cover her until she follows with Dr. Fong in the office. This is more just prophylactic because her wound is still draining. She is orthopedically stable for discharge to [facility] today as long as she tolerates breakfast alright. I wrote the discharge orders and as long as the medical team gives her the okay, then she should be able to be discharged today.
--- NOTE | 2017-05-28 07:42 | NUR ---
case management note. Pt lives with her and granddaughter. Discharge plan is for her to go to [facility]. She is accepted and does not need insurance authorization. pt transferred to room 237. report to unit disability case manager. appropriate disability case manager to follow.
[2017-05-28 07:48] LABS: HEMATOCRIT 27.5 % (37-47); HEMOGLOBIN 9.2 g/dL (12.0-16.0); MEAN CELL VOLUME 96.2 fL (80-100); MEAN CORPUSCULAR HEMOGLOBIN 32.2 pg (25-34); MEAN CORPUSCULAR HGB CONC 33.5 g/dl (32-36); MEAN PLATELET VOLUME 10.2 fL (7.4-10.4); PLATELET COUNT 335 K/uL (130-400); RED CELL DISTRIBUTION WIDTH CV 13.3 % (11.5-14.5); RED CELL DISTRIBUTION WIDTH SD 46.4 fL (36.4-46.3); WHITE BLOOD COUNT 11.91 K/uL (4.8-10.8)
--- NOTE | 2017-05-28 08:00 | NUR ---
ID: Patient alert and oriented resting in bed this morning eating breakfast. Patient is tolerating a AHA diet. No c/o nausea. Patient up with minimal assist to the chair this morning. Patient continues to be SR in the 90s on monitor. Left hand 20G flushed and patent. Right hip dressing clean dry and intact. Patient denies pain. VS remain stable. Will continue to monitor. ' Plans for discharge to [facility] today.
[2017-05-28] MEDS: CEPHALEXIN MONOHYDRATE 500 MG CAP PO SCH ×3 (08:17→16:29)
[2017-05-28] MEDS: DOCUSATE SODIUM 100 MG CAP PO SCH (08:18)
[2017-05-28] MEDS: PANTOprazole SOD 40 MG TAB PO SCH (08:18)
[2017-05-28] MEDS: ASPIRIN 81 MG ECTAB PO SCH (08:18)
[2017-05-28] MEDS: METOPROLOL TARTRATE 25 MG TAB PO SCH (08:19)
[2017-05-28 08:56] LABS: CREATININE 0.84 mg/dl (0.60-1.20); POTASSIUM 4.2 mmol/L (3.5-5.1)
--- NOTE | 2017-05-28 10:52 | Cardiology Follow-Up ---
Subjective General Date of Service: May 28, 2017. Chief Complaint: afib Pt evaluation today including: conversation w/ patient, physical exam, chart review, lab review, review of studies, review of inpatient medication list History of Present Illness Patient feeling well this AM. Denies CP/SOB/Palpitations. No recurrent hematemesis. No dizziness. Tolerating low dose metoprolol. Allergies Coded Allergies: No Known Allergies (Verified , 10/09/15) Social History Smoking Status: Never Smoker Hx Tobacco Use In Past Year?: No Hx Alcohol Use - Type And Amou: No Hx Substance Use - Type And Am: No Problem List Medical Problems: (1) Abdominal pain, left upper quadrant Status: Acute (2) Chemosis Status: Acute (3) Conjunctivitis Status: Acute (4) Hypoxia Status: Acute (5) Left eye pain Status: Acute (6) Pneumonia Status: Acute Review of Systems Respiratory: No cough, No sputum, No wheezing, No shortness of breath, No dyspnea at rest, No hemoptysis Cardiac: No chest pain, No orthopnea, No PND, No edema, No palpitations Physical Exam Vital Signs Last Vital Signs Documentation Date Time Temp Pulse Resp B/P (MAP) Pulse Ox O2 Delivery O2 Flow Rate FiO2 05/28/17 08:00 94 Room Air 05/28/17 07:39 37.1 82 20 126/71 (89) 05/26/17 07:15 2.0 05/22/17 07:48 97 Physical Exam Constitutional: General Apperance: heathly-appearing Level of Distress: NAD Psychiatric: Mental Status: active & alert Head: normocephalic Eyes: Pupils: PERRLA Neck: supple Lungs: Respiratory effort: no dyspnea Auscultation: breath sounds normal, no wheezing, no rales/crackles Cardiovascular: Heart Auscultation: RRR, normal S1, normal S2, no murmurs Peripheral Pulses: Dorsalis Pedis Pulse: normal on the left, normal on the right Abdomen: Bowel Sounds: normal Inspection & Palpation: soft, non-distended Extremities: no edema Assessment and Plan Assessment and Plan ASSESSMENT: 1. Paroxysmal atrial fibrillation, converting to NSR with IV metoprolol. 2. Post op right total hip arthroplasty 3. Hypertension 4. Upper GI bleed secondary to gastric ulcerations, symptoms improving. PLAN: echo reviewed - normal LV function, mild valvular disease Continue metoprolol 12.5 mg BID. Continue ASA 81 mg daily Not deemed an anticoagulation candidate at this time due to recent gastric ulcerations and history of anemia. Stable cardiac signs/symptoms for discharge. Case discussed with Dr. Montalvo CARDIOLOGY ATTENDING ADDENDUM: The patient was seen and personally examined. Agree with Marjorie Allison PA-C's findings and plans as documented above with additions as noted below. Pt feeling well. Exam: regular rhythm, no murmurs Impression: Brief PAF, no recurrence.Bleeding ulcers this admission. Plan: continue metoprolol and ASA. Stable from cardiac perspective for discharge to rehab. Laboratory Results Last 24 Hours Test 05/28/17 06:39 White Blood Count 11.91 K/uL Red Blood Count 2.86 M/uL Hemoglobin 9.2 g/dL Hematocrit 27.5 % Mean Corpuscular Volume 96.2 fL Mean Corpuscular Hemoglobin 32.2 pg Mean Corpuscular Hemoglobin Concent 33.5 g/dl RDW Standard Deviation 46.4 fL RDW Coefficient of Variation 13.3 % Platelet Count 335 K/uL Mean Platelet Volume 10.2 fL Sodium Level 139 mmol/L Potassium Level 4.2 mmol/L Chloride Level 108 mmol/L Carbon Dioxide Level 26 mmol/L Anion Gap 5.0 mmol/L Blood Urea Nitrogen 12 mg/dl Creatinine 0.84 mg/dl Est Creatinine Clear Calc Drug Dose 53.5 ml/min Estimated GFR () 75.5 Estimated GFR (Non- 65.2 BUN/Creatinine Ratio 13.8 Random Glucose 106 mg/dl Calcium Level 9.0 mg/dl Magnesium Level 2.1 mg/dl
--- NOTE | 2017-05-28 11:54 | NUR ---
Case Management: Pt has bed available at [facility] today. Discharge order in place by Dr. Rowe. Spoke with Dr. Newberry who is agreeable for discharge. Cardiology signed off. Confirmed with [facility] that pt will come today and they are able to take her anytime. Will need to address if pt still would like her to transport her. Case Management to follow. Addendum: 05/28/17 at 1229 by Eloisa Fiona SERV Case Management: Pt requested wheelchair van transport to be arranged; pt is agreeable to cost. Spoke with admissions and requested wheelchair van to [facility] for 1330 or later. Awaiting official transport time. Case Management to follow. Addendum: 05/28/17 at 1344 by Hunan [employer] SERV Case Management: Received call from admission that [facility] will transport pt at 5pm to [facility]. Notified nursing and [facility] liaison. No additional needs identified.
--- NOTE | 2017-05-28 12:00 | NUR ---
Previous assessment unchanged unless noted. Patient sitting in chair eating lunch. Patient to be discharged to [facility] this afternoon. VS remain stable. Patient denies any needs at this time. Will continue to monitor.
[2017-05-28] MEDS ORDERED: LPR25 PO (12:26)
--- NOTE | 2017-05-28 12:28 | Progress Note ---
Internal Med Progress Note Date of Service: May 28, 2017. Provider Documentation: SUBJECTIVE: Seen and examine yuri bedside Doing well today Denies chest pain, SOB, dizziness, palpitations Also denies pain at surgical site Planned to be discharged to [facility] today OBJECTIVE: Vital Signs-as noted below Physical Exam: General Appearance:Moderately built and nourished, no apparent distress Head: normocephalic, Atraumatic Eyes: normal inspection, EOMI, PERRL Neck: supple, Trachea midline Respiratory/Chest: Normal breath sounds, CTA Cardiovascular: S1, S2, No murmur Abdomen/GI:Soft, Non tender, Bowel sounds present Extremities/Musculoskelatal:normal inspection, no edema, Right hip in surgical dressing Neurologic/Psych:AAOX3, grossly no focal neurological deficits Skin: normal color, warm Lab data as noted below. ASSESSMENT & PLAN: S/P Right total hip arthroplasty: wound Culture: coagulase negative Staph Continue oral Keflex 500 mg TID for prophylaxis Blood cultures: Negative Repeat Wound culture: pending On Aspirin 81mg given PUD Monitor Hb Orthopedics following Planned to be discharged to [facility] today New Onset P.Afib: Had H/O afib during her breast lumpectomy 5 years ago Continue Metoprolol 12.5mg BID Appreciate Cardiology Input No Anticoagulation for now given recent GI bleed continue Aspirin 81 mg daily PUD: S/P EGD Continue PPI Appreciate GI help Needs Outpatient surgery follow up for management of hiatal hernia. Acute renal failure: resolved Cr back to baseline H/O breast cancer on Arimidex DVT Px: ASA 81mg, given Recent GI bleed Code Status: Full Code Vital Signs: Date Time Temp Pulse Resp B/P (MAP) Pulse Ox O2 Delivery O2 Flow Rate FiO2 05/28/17 09:56 82 96 05/28/17 08:00 94 Room Air 05/28/17 07:39 37.1 82 20 126/71 (89) 92 Room Air 05/28/17 04:07 Room Air 05/28/17 03:55 37.1 80 17 136/87 (103) 96 Room Air 05/27/17 23:42 36.9 78 16 119/68 (85) 94 Room Air 05/27/17 23:30 Room Air 05/27/17 20:00 Room Air 05/27/17 19:52 36.8 84 18 136/65 (88) 96 05/27/17 16:00 Room Air 05/27/17 15:27 36.8 74 18 145/66 (92) 96 05/27/17 14:00 76 23 Lab Results: Results Past 24 Hours Test 05/28/17 06:39 Range/Units White Blood Count 11.91 4.8-10.8 K/uL Red Blood Count 2.86 4.2-5.4 M/uL Hemoglobin 9.2 12.0-16.0 g/dL Hematocrit 27.5 37-47 % Mean Corpuscular Volume 96.2 80-100 fL Mean Corpuscular Hemoglobin 32.2 25-34 pg Mean Corpuscular Hemoglobin Concent 33.5 32-36 g/dl RDW Standard Deviation 46.4 36.4-46.3 fL RDW Coefficient of Variation 13.3 11.5-14.5 % Platelet Count 335 130-400 K/uL Mean Platelet Volume 10.2 7.4-10.4 fL Sodium Level 139 136-145 mmol/L Potassium Level 4.2 3.5-5.1 mmol/L Chloride Level 108 98-107 mmol/L Carbon Dioxide Level 26 21-32 mmol/L Anion Gap 5.0 3-11 mmol/L Blood Urea Nitrogen 12 7-18 mg/dl Creatinine 0.84 0.60-1.20 mg/dl Est Creatinine Clear Calc Drug Dose 53.5 ml/min Estimated GFR () 75.5 Estimated GFR (Non- 65.2 BUN/Creatinine Ratio 13.8 10-20 Random Glucose 106 70-99 mg/dl Calcium Level 9.0 8.5-10.1 mg/dl Magnesium Level 2.1 1.8-2.4 mg/dl
--- NOTE | 2017-05-28 16:00 | NUR ---
A: A&Ox4. Pleasant and cooperative with care. Denies pain/discomfort. NSR on the monitor. Lung sounds are clear throughout on RA. Encouraged I.S. use. +BS. States she had multiple BMs today. Voiding without difficulty. Right hip dressing is clean and dry, reinforced at this time. Optifoam dressing intact to left buttock ulceration. Trace BLE edema noted. Pedal pulses are weakly palpable. Bilateral TEDs on. See EMR for complete assessment details. Call delarosa is within reach. Due to be discharge to [facility] later this evening. Will continue to monitor.
--- NOTE | 2017-05-28 16:09 | NUR ---
CWOCN NOTE NEARLY HEALED PRESSURE ULCER ON LEFT BUTTOCK FOUND DURING AT RISK ROUNDING. THE AREA IS SUPERFICIAL AND ALMOST COMPLETELY HEALED, OPTIFOAM IN PLACE. CONTINUE OPTIFOAM. PT EDUCATION ON WOUND CARE AND OFFLOADING. PT VERBALIZED UNDERSTANDING.
--- NOTE | 2017-05-28 16:10 | NUR ---
A: Report called to SUE Mary at [facility].
--- NOTE | 2017-05-28 17:10 | NUR ---
A: Saline lock and threat monitoring analyst removed. All belongings packed for transfer to [facility]. Family is aware. Discharged via wheelchair and transport services.
--- NOTE | 2017-05-28 17:34 | NUR ---
A: Clinical summary faxed to [facility].
--- NOTE | 2017-06-04 15:20 | DISCHARGE SUMMARY ---
ADMITTING PHYSICIAN AND SURGEON: Dr. Fong. ADMITTING DIAGNOSIS: Right hip degenerative joint disease. SURGERY PERFORMED: Right total hip arthroplasty. SECONDARY DIAGNOSES: Hypertension, sleep apnea, hiatal hernia, mild obesity, low back pain, sciatica, breast cancer, postoperative gastric ulcer and postoperative atrial fibrillation. CONSULTS OBTAINED: 1. Dr. Montalvo for new onset atrial fibrillation, cardiology. 2. Dr. Balderrama possible upper GI bleed. 3. Dr. Vasquez for emesis postoperatively. HISTORY AND PHYSICAL EXAMINATION: Well documented in the patient's chart. HOSPITAL COURSE: The patient was admitted on 05/20/2017 and underwent total hip arthroplasty. She tolerated the procedure well. There were no complications. She was transferred to the PACU postoperatively and later to the orthopedic floor for further care. She was given Ancef for antibiotic prophylaxis and SUELLEN stockings, SCDs and aspirin for DVT prophylaxis. On postoperative day #2, she did develop some dark colored emesis and a drop in her hemoglobin. GI was consulted and she did undergo an EGD by Dr. Hinojosa, which showed some stomach and superficial ulcerations. She was given an IV PPI and switched to oral PPI and was followed by the gastroenterology service throughout her stay. She also had an episode of paroxysmal atrial fibrillation and was evaluated by the cardiology service as well. She was given metoprolol. She was transferred to telemetry for further monitoring and converted to normal sinus rhythm. She did have an echocardiogram done and was followed by the coating and baking operator. No further intervention. Her hemoglobin, hematocrit and vital signs were monitored throughout her hospital stay. She again did develop some postoperative anemia. She did not require any blood transfusions. She did have some wound drainage from the hip area and was started on Keflex. There were no further complications during her hospital stay. By postoperative day #8, she was able to tolerate a diet. She was feeling much better at that time she was participating in physical therapy and her pain was controlled. On postoperative day #8, she was discharged to a rehab facility. She was given printed discharge instructions, including new prescriptions for extra strength Tylenol and Keflex prophylactically. She was also given an iron supplement, metoprolol and tramadol. She can continue her home medications including aspirin 81 mg daily. She was on 325 mg b.i.d. while in the hospital until she had this emesis and EGD completed. The recommendations were to decrease her aspirin dose to 81 mg daily. Continue SUELLEN stockings. Continue physical therapy. She is weight bearing as tolerated. She will follow up with Dr. Fong in approximately 2 weeks postoperatively.
== END 2017-05-28 17:28 | DRG 469 ==
LOC: C.ACU 08:25 → C.3E 08:55 → ENRESERV 13:30 → C.MSN 05-25 13:42 → ENRESERV 05-27 04:56 → C.MSICU 05-27 04:57 → C.2T 05-27 14:41
PROVIDERS: ADMIT Orthopaedic Surgery Sports Medicine; ATTEND Orthopaedic Surgery Sports Medicine
PROC: 0SR90JA Replacement of Right Hip Joint with Synthetic Substitute, Uncemented, Open Approach (ICD-10-PCS; principal; 2017-05-20 11:00)
PROC: 0D968ZZ Drainage of Stomach, Via Natural or Artificial Opening Endoscopic (ICD-10-PCS; 2017-05-23)
DX: M16.11 Unilateral primary osteoarthritis, right hip (principal); K26.4 Chronic or unspecified duodenal ulcer with hemorrhage; K25.4 Chronic or unspecified gastric ulcer with hemorrhage; N17.9 Acute kidney failure, unspecified; D62 Acute posthemorrhagic anemia; I10 Essential (primary) hypertension; G47.30 Sleep apnea, unspecified; E66.01 Morbid (severe) obesity due to excess calories; R11.2 Nausea with vomiting, unspecified; T40.2X5A Adverse effect of other opioids, initial encounter; E78.5 Hyperlipidemia, unspecified; K44.9 Diaphragmatic hernia without obstruction or gangrene; Z68.30 Body mass index [BMI] 30.0-30.9, adult; Z79.82 Long term (current) use of aspirin; Z79.899 Other long term (current) drug therapy; Z85.3 Personal history of malignant neoplasm of breast; T39.395A Adverse effect of other nonsteroidal anti-inflammatory drugs [NSAID], initial encounter; D72.829 Elevated white blood cell count, unspecified; I48.0 Paroxysmal atrial fibrillation

== ENCOUNTER → 2017-09-22 | Outpatient (CLI) | payer OTHER ==
[~2017-09-22] MED LIST changes: +ACET-24 PO; -ACETAMINOPHEN 500 MG TAB PO SCH; -BUPIVACAINE 0.5 % 5 MG/1 ML PF 10ML VIAL ONE; -BUPIVACAINE LIPOSOME 266 MG, BUPIVACAINE/EPINEPHRINE INJ 50 ML, SODIUM CHLORIDE 0.9% PF... INFIL SCH; -CEFAZOLIN 2000MG IV PUSH 10 ML IV SCH; -FAMOTIDINE 20 MG TAB PO SCH; +FRRG PO; -GABAPENTIN 300 MG CAP PO SCH; +KFL500 PO; -LACTATED RINGER'S 1000ML 1,000 ML IV SCH; -LACTATED RINGER'S 1000ML 500 ML IV SCH; -LACTATED RINGER'S 1000ML IV SCH; +LPR25 PO; -METOCLOPRAMIDE HCL 10 MG TAB PO SCH; -SCOPOLAMINE 1.5 MG TDSY TD SCH; -TRANEXAMIC ACID INJ 1,000 MG in SYRINGE 0 ML IV SCH; +ULT50X PO
--- NOTE | 2017-09-22 09:18 | DIAGNOSTIC IMAGING REPORT ---
(BARIUM SWALLOW) ESOPHAGUS CLINICAL HISTORY: HERNIA COMPARISON STUDY: None. FLUOROSCOPY TIME: 1.4 minutes. FINDINGS: 23 fluoroscopic images were obtained. There is moderate esophageal dysmotility. Note is made of a large sliding type hiatal hernia with partially intrathoracic stomach. The gastric cardia, fundus and proximal to mid portion of the body are located within the chest. No mucosal lesion is identified although sensitivity is diminished on this exam. Moderate to severe gastroesophageal reflux was elicited. IMPRESSION: 1. Large sliding type hiatal hernia with partially intrathoracic stomach, as described above. 2. Moderate esophageal dysmotility. 3. Moderate to severe gastroesophageal reflux. Electronically signed by: Denny Bates M.D. 09/22/2017 9:16 AM Dictated Date/Time: 09/22/2017 9:15 AM
== END | disposition home or self-care (01) ==
LOC: C.RAD 08:25
PROVIDERS: ATTEND Nurse Practitioner Family
DX: K44.9 Diaphragmatic hernia without obstruction or gangrene (principal); K22.4 Dyskinesia of esophagus; K21.9 Gastro-esophageal reflux disease without esophagitis

== ENCOUNTER → 2018-01-02 | Outpatient (CLI) | payer OTHER ==
--- NOTE | 2018-01-05 13:10 | MAMMOGRAPHY REPORT ---
BILATERAL DIGITAL SCREENING MAMMOGRAM TOMOSYNTHESIS WITH CAD: 01/02/2018 CLINICAL HISTORY: Routine screening. Patient has no complaints. Asymmetry. TECHNIQUE: The study was acquired using full field digital technology and interpreted from soft copy. Breast tomosynthesis in addition to standard 2D mammography was performed. Current study was also ev aluated with a Computer Aided Detection (CAD) system. COMPARISON: Comparison is made to exams dated: 01/01/2017 mammogram, 01/30/2016 mammogram, 12/20/2015 zheng mogram, 01/27/2015 mammogram, 01/25/2014 mammogram, and 07/08/2012 mammogram - [facility] BREAST COMPOSITION: There are scattered areas of fibroglandular density in both breasts. FINDINGS: No suspicious masses, calcifications, or areas of architectural distortion are noted in either breast . There has been no significant interval change compared to prior exams. There are stable postsurgic al changes in the right breast from prior lumpectomy. Scattered bilateral benign-appearing calcifica tions are not significantly changed. IMPRESSION: ACR BI-RADS CATEGORY 2: BENIGN There is no mammographic evidence of malignancy. A 1 year screening mammogram is recommended.( 019) The patient will receive written notification of the results. Some breast cancers are not detected with mammography. A negative mammographic report should not darrell y biopsy if a clinically suggestive mass is present. Clari Golden M.D. /:01/02/2018 16:39:10 [place]arer Screen Measurer And Trimmer: RT Emmy(R)(M), [facility] letter sent: Normal 1/2 BI-RADS Code: ACR BI-RADS Category 2: Benign
== END | disposition home or self-care (01) ==
LOC: C.MAMM 15:38
PROVIDERS: ATTEND Obstetrics & Gynecology
DX: Z12.31 Encounter for screening mammogram for malignant neoplasm of breast (principal); Z85.3 Personal history of malignant neoplasm of breast

== ENCOUNTER 2021-09-27 07:14 | Observation (INO) ==
[2021-09-27] MEDS ORDERED: fentaNYL citrate 100 MCG/2 ML VIAL ONE (07:54)
[2021-09-27] MEDS ORDERED: MIDAZOLAM HCL 5 MG/ML 1 ML VIAL ONE (07:54)
[2021-09-27] MEDS ORDERED: ceFAZolin 330 MG/ML 1 GM VIAL ONE (07:58)
--- NOTE | 2021-09-27 08:01 | History & Physical Report ---
Date of Service September 27, 2021 Assessment & Plan (1) Atrial flutter: Plan: Unknown atrial arrhythmia. will first determine if this is AF or AFL. If AFl then we will perform a typical ablation (CTI). If this is atrial flutter then I thin a pacemaker is warranted given the findings on her monitor. I discussed the plan and the attendant risks of both procedures with the patient. History of Present Illness Chief Complaint: Palpitations Primary Care Provider: Denise Velasquez DO Patient with documented atrial arrhythmia and conversion pauses as well as bradycardia. No syncope. Allergies Allergy/AdvReac Type Severity Reaction Status Date / Time No Known Allergies Allergy Unknown Verified 08/30/21 13:39 Home Medications Medication Instructions Recorded Confirmed Type cyanocobalamin (vitamin B-12) 500 5,000 mcg PO DAILY tab 01/20/19 09/27/21 History mcg tablet antiarthritic combination no.2 900 900 mg PO DAILY tab 02/11/19 09/27/21 History mg tablet (glucosamine-chondroitin) losartan 25 mg tablet 50 mg PO QPM tab 08/09/19 09/27/21 History amoxicillin 500 mg capsule 2,000 mg PO UD 09/27/20 09/27/21 History cholecalciferol (vitamin D3) 125 125 mcg PO Q2D 09/27/20 09/27/21 History mcg (5,000 unit) tablet (Vitamin D3) furosemide 20 mg tablet 20 mg PO UD PRN 09/27/20 09/27/21 History metoprolol tartrate 25 mg tablet 25 mg PO BID 09/27/20 09/27/21 History vit C 250 mg-vit E 90 mg-zinc 40 1 tab PO BID 09/27/20 09/27/21 History mg-copper 1 [id number] capsule (PreserVision AREDS-2) amiodarone 100 mg tablet 50 mg PO QAM #45 tab 07/05/21 09/27/21 Rx apixaban 5 mg tablet (Eliquis) 5 mg PO BID #180 tab 07/06/21 09/27/21 Rx gabapentin 300 mg capsule 300 mg PO TID #90 cap 08/30/21 09/27/21 Rx Past Med/Surg History Medical History Afib Arthritis Cataracts, both eyes Degenerative joint disease of left hip Hip pain History of breast cancer History of thyroid disease HTN (hypertension) Kidney disease Lumbar spondylolysis Macular degeneration Nausea after anesthesia Sleep apnea Surgical History H/O colonoscopy H/O esophagogastroduodenoscopy H/O partial mastectomy History of appendectomy History of left cataract extraction History of total left hip replacement History of tubal ligation S/P appendectomy S/P tonsillectomy and adenoidectomy Family History Daughter Family history of diabetes mellitus Grandfather Family history of diabetes mellitus Social History Smoking Status: Never smoker Second Hand Exposure: No; Hx Alcohol Use: No Hx Substance Use: No Preferred Language: Malay Communication Ability: Effective Capture Manager Required: No Beliefs That Will Affect Care: None Current Living Situation: Spouse Current Living Situation Comment: AND 29 YR OLD GRANDAUGHTER Other Information That Helps Us Care for You: No Feels Safe at Home: Yes Safety Concerns: Feels Safe At This Time Assistive Devices: Cane Review of Systems Review of Systems: Per HPI Physical Exam Physical Exam: Alert. Answered all questions appropriately sclerae anicteric Respiratory effort normal irregular rhythm mild leg edema Results & Data Results & Data ([facility]) Vital Signs (Past 12 Hours) Vital Signs Temp Pulse Resp BP Pulse Ox 09/27/21 07:29 36.8 C 104 H 20 164/104 H 98
--- NOTE | 2021-09-27 08:02 | Pre Anesthesia Assessment ---
Date of Service September 27, 2021 Pre Sedation Assessment Vital Signs Temp Pulse Resp BP Pulse Ox 09/27/21 07:29 36.8 C 104 H 20 164/104 H 98 Cardiovascular + irregularly irregular Respiratory + respiratory effort normal Pre-Sedation Airway Assessment Smoking Status: Never smoker Hx Sleep Apnea: No Hx Difficult Intubation: No Short, Thick Neck: No Thyromental Distance: > or= 3.5 Finger Breadths Oral Cavity: + WNL Mallampati Class: III ASA: ASA3 NPO Status Date of Last Intake of Fluids: 09/26/21 Date of Last Intake of Solid Food: 09/26/21 Procedure Planning Contraindications for Sedation: none Current Medications Reviewed: Yes Notes The planned sedation has been discussed with the patient. Informed Consent was obtained. I have identified the patient, determined the appropriateness of sedation and have assessed the patient immediately prior to the procedure. All medicine(s) and interventions are by my order.
[2021-09-27] MEDS ORDERED: HEPARIN (PORCINE) 1000 UNIT/ML 10 ML (CATH LAB USE ONLY) ONE (08:53)
[2021-09-27] MEDS ORDERED: WATER, STERILE FOR INJ 10 ML VIAL ONE (09:18)
[2021-09-27] MEDS ORDERED: LIDOCAINE 1% LOCAL 20 ML VIAL ONE (09:18)
[2021-09-27] MEDS ORDERED: VANCOMYCIN HCL 1000MG/20ML VIAL ONE (09:18)
[2021-09-27] MEDS ORDERED: BUPIVACAINE 0.25% 30 ML VIAL ONE (09:19)
--- NOTE | 2021-09-27 10:50 | Electrophysiology Report ---
Date of Service September 27, 2021 Electrophysiology Procedure Electrophysiology Procedure Report Procedure performed: Complete electrophysiologic testing including pacing from the left atrium via the coronary sinus. Three-dimensional electro anatomical mapping. Staff journeyman pipe fitter: Blade Wood MD indication: The patient is an 86-year-old woman with a history of a tachy arrhythmia. Outpatient monitoring suggested atrial flutter. She was also noted to have high ventricular rates and periods of bradycardia as well as conversion pauses. Electrophysiologic testing was advised in order to better characterize arrhythmia and possibly perform ablation of an atrial flutter. Procedure detail: The patient was advised of the risks benefits and alternatives to the intended procedure. She understood which proceed. She was taken to the electrophysiology suite in a fasting state. Conscious sedation was administered per protocol the patient was monitored electrocardiographically throughout today's procedure. Initially the right internal jugular vein was prepped and draped in usual sterile fashion. This area was anesthetized using subcutaneous menstruation of lidocaine solution. The right internal jugular vein was subsequently accessed using modified Seldinger technique under ultrasound guidance and a venous sheath was placed at the site over guidewire. The sheath was used facilitate passage of the EP catheter to the coronary sinus. Electrical measurements were obtained at this juncture it was felt that electro anatomical mapping would be helpful. The right femoral area was subsequently prepped and draped in usual sterile fashion in the right femoral vein was accessed using modified Seldinger technique. Sheaths were placed over guidewire this site used facilitate passage of the EP catheters to their respective chambers under fluoroscopic guidance. This included right ventricular and right atrial mapping catheter. The patient's tachyarrhythmia was subsequently mapped using a proprietary 3 dimensional electro anatomical mapping system. At this p oint it appeared that the rhythm was more closely resembling atrial fibrillation. The catheters were subsequently removed. The procedure was concluded and the patient was referred for pacemaker implantation. The patient elevated procedure well. There were no immediate Complications. Findings: Initial intracardiac electrograms from the coronary sinus suggested an atypical flutter, but the atrial activation very considerably from beat to beat. Three-dimensional electro anatomical mapping also confirmed significant variability in the atrial activation and cycle length of the tachycardia more consistent with atrial fibrillation. No organized flutter could be mapped. Earliest atrial activation occurred throughout the atrium and was not consistent with breakthrough from the left atrium. Impression: Atrial fibrillation [facility] Electrophysiology codes EP Procedure 1: Electrophysiology: 89827 Comp EPS with induction Procedure 2: Electrophysiology: [id number] 3D mapping
--- NOTE | 2021-09-27 10:51 | Post Anesthesia Assessment ---
Date of Service September 27, 2021 Post Sedation Assessment Vital Signs Temp Pulse Resp BP Pulse Ox 09/27/21 07:29 36.8 C 104 H 20 164/104 H 98 Recovery Score Activity: Moves 4 extremities Respiration: Deep Breath/Cough Circulation: +/-20% PreAnes Value Consciousness: Arouseable (by name) Oxygen Saturation: > 92% On Room Air Discharge Sedation Level of Care: Fast Track Phase II Post Sedation Plan On clinical assessment, the patient appears to have tolerated the sedation without complications. Patient is recovering as anticipated. Patient will continue to be monitored by nursing and may be discharged when sedation discharge criteria are met per below protocol. Upon Completions of procedure up to 15 minutes continue every 5 minute vital signs and the P.A.R. score; then discharge to a Phase I or Fast Track to Phase II per the following guidelines: * Discharge Patient to appropriate Phase II area if PAR is 8 or greater or return to pre- procedure baseline. The post - procedure orders will be as directed. * If PAR score is less than 8 or not return to pre-procedure baseline then patient will follow Phase I monitoring till PAR is reached for Phase II. The Phase I may be done in procedure room or may call to secure a Phase I area. * If naloxone or flumazenil are used for reversal, hold in Phase I for continued monitoring from when last reversal dose was given for a minimum of 60 minutes or longer pending the nurse and/or physician discretion of patient condition before discharge to Phase II. Please call the Sedation Physician to re-evaluate and complete post-note for discharge to Phase II area. Do NOT discharge from procedure sedation or Phase 1 until post- sedation evaluation note is complete by procedure /sedation MD Sedation Discharge Instructions to be given to the patient at discharge to home.
--- NOTE | 2021-09-27 10:52 | Electrophysiology Report ---
Date of Service September 27, 2021 Electrophysiology Procedure Electrophysiology Procedure Report Procedure performed: Implantation of dual-chamber permanent pacemaker with left bundle pacing lead Staff supervisor fur floor worker: Blade Wood MD Indication: The patient is an 86-year-old woman with a history of tachybradycardia syndrome. She has periods of atrial fibrillation punctuated by conversion pauses and bradycardia. Pacemaker was advised to better control her rhythm and rate. Due to symptomatic nonreversible sinus node dysfunction. Dual-chamber device was selected as she is occasionally in sinus rhythm and wished to maintain AV synchrony. Procedure in detail: The patient was informed of the risks benefits and alternatives to the intended procedure and she wished to proceed. She was taken to the electrophysiology suite in a fasting state. A preoperative antibiotic had been administered. The patient was monitored electrocardiographically throughout today's procedure and conscious sedation was administered per protocol. The left upper pectoral area is prepped and draped in usual sterile fashion. This area was anesthetized using subcutaneous administration of a xylocaine solution. An incision was made at this site and carried down to the prepectoralis fascia using sharp dissection. Electrocautery was also employed for dissection as well as for hemostasis. A device pocket was fashioned tissues above the pectoralis muscle. Subsequent to this maneuver the left axillary vein was accessed using modified Seldinger technique. Sheath was placed over guidewire at this site and used to facilitate passage of a guiding catheter for mapping of the interventricular septum. Multiple areas were mapped prior to active fixation of the lead to the interventricular septum. Adequate sensing and threshold parameters were obtained prior to removal of the guiding catheter. The sheath was also removed. A sheath was then placed over the second guidewire and used to facilitate passage of the right atrial lead under fluoroscopic guidance. Adequate sensing and threshold parameters were obtained prior to active fixation of this lead to the endocardial surface. The proximal portion leads were then sutured the prepectoral fascia using nonabsorbable suture. The device pocket was irrigated with antibiotic solution. The leads were then attached to the device. The device and leads were then placed in the pocket and pocket was closed in 3 layers of absorbable suture. Steri-Strips and sterile dressing were applied. The device was tested noninvasively prior to conclusion the procedure. The patient tolerated procedure well there no immediate complications. Equipment used: New pulse generator: Regional Liaison Natanael Ulien. Model number: [id number] serial number [id number] Right atrial lead: Regional Liaison Med[employer]. Model number: [id number] serial number [id number] Right ventricular lead: [employer] Liaison [employer]tr[employer]. Model number: [id number] serial number [id number] Measured data: Right atrial lead: P waves measure 1.3 mV. Pacing threshold 0.75 V at 0.4 ms with a pacing impedance of 475 ohms Right ventricular lead: R waves measured 7.9 mV. Pacing threshold 2.5 V at 0.4 ms with a pacing impedance of 608 ohms Impression: Successful implantation of dual-chamber permanent pacemaker with left bundle pacing lead [facility] Electrophysiology codes Pacing Procedure 1: Pacin Insert/Replace Pacer A & V PG Moderate Sedation Codes Moderate Sedation Codes Procedure 1: Sedation/Anesthesia: 32291 Mod Sedation by the same physician;Init15 Min Child Age 5 & Up Procedure 2: Sedation/Anesthesia: 06344 Mod Sedation by the same physician; Ea [id number] Minutes
[2021-09-27] MEDS ORDERED: oxyCODONE HCL IR 5 MG TAB (IMMEDIATE RELEASE) PO PRN (10:55)
[2021-09-27] MEDS: ACETAMINOPHEN 325 MG TAB PO PRN (14:34)
[2021-09-27] MEDS: GABAPENTIN 300 MG CAP PO SCH ×2 (15:18→19:57)
[2021-09-27] MEDS ORDERED: ceFAZolin 1000MG 1,000 MG/7.5 ML SYR IV ONE (19:00)
[2021-09-27] MEDS: METOPROLOL TARTRATE 25 MG TAB PO SCH (19:57)
[2021-09-27] MEDS ORDERED: LOSARTAN POTASSIUM 50 MG TAB PO SCH (21:00)
[2021-09-28] MEDS: ACETAMINOPHEN 325 MG TAB PO PRN (02:50)
[2021-09-28] MEDS: METOPROLOL TARTRATE 25 MG TAB PO SCH (08:03)
[2021-09-28] MEDS: GABAPENTIN 300 MG CAP PO SCH (08:03)
--- NOTE | 2021-09-28 08:51 | XRay Report ---
XR chest 2V PA/lateral HISTORY: 86 years-old Female Pacemaker. No lifting left arm status post placement of a left subclavi an pacer COMPARISON: Chest radiographs 04/23/2017 TECHNIQUE: PA and lateral views of the chest FINDINGS: Status post placement of a left subclavian dual lead pacer. No postprocedural pneumothorax. Cardiomeg ravi with pulmonary vascular congestion and interstitial coarsening. Trace pleural effusions with mild bibasilar opacities. Large hiatal hernia with partially intrathoracic stomach. The bones appear jacinto sly intact. Dextroscoliosis of the thoracolumbar junction. IMPRESSION: 1. Status post placement of a dual-lead left subclavian pacer. No pneumothorax. 2. Cardiomegaly with pulmonary vascular congestion and suggested interstitial pulmonary edema. 3. Trace pleural effusions. 4. Large hiatal hernia. ACT 112: Negative or not required by law. The above report was generated using voice recognition software. It may contain grammatical, syntax o r spelling errors. Electronically signed by: Eddie Pierre M.D. 09/28/2021 8:49 AM
[2021-09-28] MEDS ORDERED: FUROSEMIDE INJ 20 MG/2 ML VIAL IV ONE (10:35)
--- NOTE | 2021-09-28 10:54 | Discharge Summary ---
Date of Service September 28, 2021 Admission HPI Per Admitting Provider Patient with documented atrial arrhythmia and conversion pauses as well as bradycardia. No syncope. Discharge Data Allergies Allergy/AdvReac Type Severity Reaction Status Date / Time No Known Allergies Allergy Unknown Verified 08/30/21 13:39 Procedures Performed Operation Date: 09/27/21 08:00 Actual Procedures p EPS w/o Induction (RA,HIS,RV) - Blade Wood MD p Pacer with A/V Leads (Dual) - Blade Wood MD s Ultrasound Vascular Access - Blade Wood MD s 3D Mapping (Carto) - Blade Wood MD Ordered Studies 09/27/21 07:15 EP Lab Images for PACS ONCE Discharge Plan Discharge Items Patient Disposition: Home - Self-Care Reason For Visit: Atrial Flutter Discharge Diagnosis: tachy-wellington syndrome Activity: Per Instructions section Activity Comment: no raising left arm above shoulder or behind neck for 6 weeks. Lifting: No more than 10 pounds Lifting Comment: No lifting greater than 10 pounds or straining for 5 days Bathing: Keep incision dry Bathing Comment: keep wound dry and Steri-Strips intact until follow-up next week Driving/Machine Use: Resume 1 day after discharge Non-emergency contact: Form Builder Helper Call non-emergency contact if: you have any medication questions, your symptoms worsen, your pain is not controlled, you have a fever and your wound has increased redness Follow-up/Referrals: Denise Velasquez DO [Primary Care Provider] - Diet: Regular Addtl Attending Provider Instructions: do not resume Eliquis until FridaySeptember 30 Pending Studies at Discharge: No Stand-Alone Forms: [facility] [facility], Smoking Cessation Medications and DC Order Prescriptions: New metoprolol tartrate 50 mg tablet 50 mg PO BID Qty: 60 RF: 3 Continued gabapentin 300 mg capsule 300 mg PO TID Qty: 90 RF: 2 Eliquis 5 mg tablet 5 mg PO BID Qty: 180 RF: 3 cyanocobalamin (vitamin B-12) 500 mcg tablet 5,000 mcg PO DAILY RF: 0 glucosamine-chondroitin 900 mg tablet 900 mg PO DAILY RF: 0 losartan 25 mg tablet 50 mg PO QPM RF: 0 cholecalciferol (vitamin D3) [Vitamin D3] 125 mcg (5,000 unit) Tablet 125 mcg PO Q2D RF: 0 amoxicillin 500 mg Capsule 2,000 mg PO UD RF: 0 furosemide 20 mg Tablet 20 mg PO UD PRN (Reason: Fluid Retention) RF: 0 PreserVision AREDS-2 250-90-40-1 mg Capsule 1 tab PO BID RF: 0 Discontinued amiodarone 100 mg tablet 50 mg PO QAM Qty: 45 RF: 3 metoprolol tartrate 25 mg Tablet 25 mg PO BID RF: 0 Discharge Orders: Discharge Order (Routine); Ordered 09/28/21 Ordered By: Blade Wood Admission Data Admit Date/Time: 09/27/21 12:44 Attending Provider: Blade Wood Admit Provider: Blade Wood Primary Care Provider: Denise Velasquez Other Interventions: Discharge Summary Assessment (RN) Last Done: 09/28/21 10:43 Coding
== END 2021-09-28 11:39 | disposition home or self-care (01) ==
LOC: 2S 07:14 → EP 07:14
DX: I49.5 Sick sinus syndrome; I48.92 Unspecified atrial flutter; Z79.899 Other long term (current) drug therapy; Z79.01 Long term (current) use of anticoagulants

== ENCOUNTER 2022-12-25 06:32 | Observation (INO) ==
--- NOTE | 2022-12-06 11:09 | PAT Medication Instructions ---
Medication Instructions Date of Service December 06, 2022 Home Medications Medication Instructions Recorded diltiazem HCl 120 mg capsule,24 120 mg PO DAILY #90 caps 04/23/22 hr,extended release diclofenac sodium 1 % topical gel 4 g topical QID #100 grams 07/02/22 (Voltaren Arthritis Pain) amoxicillin 500 mg tablet 2,000 mg PO ONCE #4 tabs 07/24/22 acetaminophen 300 mg-codeine 30 mg 1 tab PO BID PRN pain #20 tabs 09/16/22 tablet furosemide 20 mg tablet 20 mg PO DAILY #30 tabs 10/03/22 apixaban 5 mg tablet (Eliquis) 5 mg PO BID #180 tabs 10/10/22 oxyquinoline 0.025 %-sodium lauryl See Rx Instructions vaginal 10/24/22 sulfate 0.01 % vaginal gel .COMPLEX #113.4 grams (Trimo-Arcos Jelly) metoprolol tartrate 100 mg tablet 100 mg PO BID #180 tabs 11/18/22 vit C 250 mg-vit E 90 mg-zinc 40 mg-copper 1 aq-tzjscq-tchznf capsule (PreserVision AREDS-2) 1 tab PO BID cyanocobalamin (vitamin B-12) 500 mcg tablet 5,000 mcg PO .qod diltiazem HCl 120 mg capsule,24 hr,extended release 120 mg PO DAILY diclofenac sodium 1 % topical gel (Voltaren Arthritis Pain) 4 g topical QID amoxicillin 500 mg tablet 2,000 mg PO ONCE cholecalciferol (vitamin D3) 125 mcg (5,000 unit) tablet (Vitamin D3) 125 mcg PO DAILY acetaminophen 300 mg-codeine 30 mg tablet 1 tab PO BID PRN furosemide 20 mg tablet 20 mg PO DAILY apixaban 5 mg tablet (Eliquis) 5 mg PO BID oxyquinoline 0.025 %-sodium lauryl sulfate 0.01 % vaginal gel (Trimo-Arcos Jelly) See Rx Instructions vaginal .COMPLEX losartan 50 mg tablet 50 mg PO QAM metoprolol tartrate 100 mg tablet 100 mg PO BID glucosamine sulf dipot chlr,msm,chond 550 mg-C 30 mg-chela 1 mg capsule (Glucosamine Chondroitin) 1 cap PO QAM Continue as directed diltiazem HCl 120 mg capsule,24 hr,extended release 120 mg PO DAILY amoxicillin 500 mg tablet 2,000 mg PO ONCE ASK your surgeon for instructions acetaminophen 300 mg-codeine 30 mg tablet 1 tab PO BID PRN(if needed) ASK your prescriber and surgeon apixaban 5 mg tablet (Eliquis) 5 mg PO BID(in order for spinal or epidural anesthesia, Eliquis needs to be stopped 72 hours/3 days before surgery. Please check if okay with doctor that prescribes this to you) STOP taking 2 weeks before surgery (or as soon as possible if surgery is within 2 weeks) vit C 250 mg-vit E 90 mg-zinc 40 mg-copper 1 ic-njlexe-amovqw capsule (PreserVision AREDS-2) 1 tab PO BID glucosamine sulf dipot chlr,msm,chond 550 mg-C 30 mg-chela 1 mg capsule (G lucosamine Chondroitin) 1 cap PO QAM STOP taking 24 hours before surgery diclofenac sodium 1 % topical gel (Voltaren Arthritis Pain) 4 g topical QID oxyquinoline 0.025 %-sodium lauryl sulfate 0.01 % vaginal gel (Trimo-Arcos Jelly) See Rx Instructions vaginal .COMPLEX DO NOT take the morning of surgery cyanocobalamin (vitamin B-12) 500 mcg tablet 5,000 mcg PO .qod cholecalciferol (vitamin D3) 125 mcg (5,000 unit) tablet (Vitamin D3) 125 mcg PO DAILY furosemide 20 mg tablet 20 mg PO DAILY losartan 50 mg tablet 50 mg PO QAM Take morning of surgery With a small sip of water, OTHERWISE NOTHING TO EAT OR DRINK AFTER MIDNIGHT: metoprolol tartrate 100 mg tablet 100 mg PO BID Take evening before surgery acetaminophen 300 mg-codeine 30 mg tablet 1 tab PO BID PRN(if needed) metoprolol tartrate 100 mg tablet 100 mg PO BID Other Notes If you have any questions please call us at [phone] or [phone] or or [phone]
--- NOTE | 2022-12-06 14:57 | PAT Medication Instructions ---
Medication Instructions Date of Service December 06, 2022 Home Medications Medication Instructions Recorded diltiazem HCl 120 mg capsule,24 120 mg PO DAILY #90 caps 04/23/22 hr,extended release diclofenac sodium 1 % topical gel 4 g topical QID #100 grams 07/02/22 (Voltaren Arthritis Pain) amoxicillin 500 mg tablet 2,000 mg PO ONCE #4 tabs 07/24/22 acetaminophen 300 mg-codeine 30 mg 1 tab PO BID PRN pain #20 tabs 09/16/22 tablet furosemide 20 mg tablet 20 mg PO DAILY #30 tabs 10/03/22 apixaban 5 mg tablet (Eliquis) 5 mg PO BID #180 tabs 10/10/22 oxyquinoline 0.025 %-sodium lauryl See Rx Instructions vaginal 10/24/22 sulfate 0.01 % vaginal gel .COMPLEX #113.4 grams (Trimo-Arcos Jelly) metoprolol tartrate 100 mg tablet 100 mg PO BID #180 tabs 11/18/22 vit C 250 mg-vit E 90 mg-zinc 40 mg-copper 1 vp-pjvpdu-enhqbm capsule (PreserVision AREDS-2) 1 tab PO BID cyanocobalamin (vitamin B-12) 500 mcg tablet 5,000 mcg PO .qod diltiazem HCl 120 mg capsule,24 hr,extended release 120 mg PO DAILY diclofenac sodium 1 % topical gel (Voltaren Arthritis Pain) 4 g topical QID amoxicillin 500 mg tablet 2,000 mg PO ONCE cholecalciferol (vitamin D3) 125 mcg (5,000 unit) tablet (Vitamin D3) 125 mcg PO DAILY acetaminophen 300 mg-codeine 30 mg tablet 1 tab PO BID PRN pain furosemide 20 mg tablet 20 mg PO DAILY apixaban 5 mg tablet (Eliquis) 5 mg PO BID oxyquinoline 0.025 %-sodium lauryl sulfate 0.01 % vaginal gel (Trimo-Arcos Jelly) See Rx Instructions vaginal .COMPLEX losartan 50 mg tablet 50 mg PO QAM metoprolol tartrate 100 mg tablet 100 mg PO BID glucosamine sulf dipot chlr,msm,chond 550 mg-C 30 mg-chela 1 mg capsule (Glucosamine Chondroitin) 1 cap PO QAM Continue as directed amoxicillin 500 mg tablet 2,000 mg PO ONCE ASK your prescriber and surgeon apixaban 5 mg tablet (Eliquis) 5 mg PO BID (in order for spinal or epidural anesthesia, apixaban needs to be stopped 72 hours before surgery. Please check if okay with doctor that prescribes this to you) STOP taking 2 weeks before surgery (or as soon as possible if surgery is within 2 weeks) vit C 250 mg-vit E 90 mg-zinc 40 mg-copper 1 gw-lfkvzd-ytjgto capsule (PreserVision AREDS-2) 1 tab PO BID glucosamine sulf dipot chlr,msm,chond 550 mg-C 30 mg-chela 1 mg capsule (Glucosamine Chondroitin) 1 cap PO QAM STOP taking 24 hours before surgery diclofenac sodium 1 % topical gel (Voltaren Arthritis Pain) 4 g topical QID oxyquinoline 0.025 %-sodium lauryl sulfate 0.01 % vaginal gel (Trimo-Arcos Jelly) See Rx Instructions vaginal .COMPLEX DO NOT take the morning of surgery cyanocobalamin (vitamin B-12) 500 mcg tablet 5,000 mcg PO .qod cholecalciferol (vitamin D3) 125 mcg (5,000 unit) tablet (Vitamin D3) 125 mcg PO DAILY furosemide 20 mg tablet 20 mg PO DAILY losartan 50 mg tablet 50 mg PO QAM Take morning of surgery With a small sip of water, OTHERWISE NOTHING TO EAT OR DRINK AFTER MIDNIGHT: diltiazem HCl 120 mg capsule,24 hr,extended release 120 mg PO DAILY acetaminophen 300 mg-codeine 30 mg tablet 1 tab PO BID PRN pain (if needed) metoprolol tartrate 100 mg tablet 100 mg PO BID Take evening before surgery acetaminophen 300 mg-codeine 30 mg tablet 1 tab PO BID PRN pain (if needed) metoprolol tartrate 100 mg tablet 100 mg PO BID Other Notes If you have any questions please call us at [phone] or [phone] or [phone] or [phone]
--- NOTE | 2022-12-11 14:45 | Anesthesiology Consultation ---
Date of Service December 11, 2022 Assessment & Plan (1) Encounter for pre-operative examination: - COVID screening: Per assessment on 12/11: No known COVID-19 positive contacts or current COVID-19 related symptoms. Travel screen negative. Patient vaccinated. - S/P Right JAYJAY (05/20/17): SAB at [facility], [place] - Outpatient joint assessment: Pt currently scheduled for inpatient pathway. If surgeon requests review for outpatient joint pathway, patient is not recommended candidate for outpatient joint program from anesthesia standpoint. - Difficult IV stick: OR made aware* - EP visit (11/18/22): "Atrial fibrillation: no symptoms. Rate control appears adequate if not suboptimal. Increase metoprolol to 100 mg twice daily. She will continue her Cardizem. Continue systemic anticoagulation.. Normally functioning dual-chamber permanent pacemaker.. Mitral regurgitation: Mild in 2018. No loud murmur on examination today.. on 09/27/2021 the patient underwent electrophysiologic testing in anticipation of an atrial flutter ablation. However, intracardiac electrograms suggested the arrhythmia was really atrial fibrillation. No ablation was performed. Based on a history of paroxysmal tachycardia and conversion pauses she did undergo implantation of dual-chamber permanent pacemaker. she returns today to evaluate the device function as well as her atrial fibrillation." - Cardiology visit (09/26/22): "Chronic CHF: Volume status has improved. Will continue Lasix 40 mg daily and plan to recheck a BMP today. Low sodium diet, <2,000 mg daily, recommended. Daily weights. Echo ordered to reevaluate LV systolic function.. Paroxysmal atrial fibrillation: Rate appears adequately controlled. She is asymptomatic. Continue metoprolol tartrate 75 mg BID and diltiazem 120 mg daily. Continue Eliquis for stroke risk reduction.. Pre-op eval: She is hoping she will be able to get a hip replacement in the near future. She has a limited functional status and has not had a recent ischemic evaluation. A pharmacologic nuclear stress test will therefore be arranged to further evaluate for myocardial ischemia prior to surgery. Will also arrange for an echo to reevaluate LV systolic function." > Echo performed 10/04/22. Stress test scheduled* - Awaiting cardiology-ordered stress test ([facility] [place], scheduled 12/20). - Awaiting surgeon-ordered PCP preop evaluation (KERVIN Roblero, appt 12/17). Chart Review Chart Review: Patient seen in Pre Admission Testing Teaching & Discussion Pre-Anesthesia Teaching/Discussion Notes: Instructed NPO after midnight before surgery,except medications with 15 cc of water. Medication instructions provided according to the PAT guidelines. p History Surgery Operation Date: 12/25/22 09:20 Proposed Procedures p Hybrid Left Total Hip Arthroplasty with Dual Mobility Cup and Cemented Femur - Mike Bridges MD Height/Weight Height: 5 ft Weight: 65.4 kg Allergies Allergy/AdvReac Type Severity Reaction Status Date / Time No Known Allergies Allergy Unknown Verified 11/18/22 11:25 Medications Home Medications Medication Instructions Recorded Confirmed Last Taken vit C 250 mg-vit E 90 mg-zinc 40 1 tab PO BID 09/27/20 12/04/22 1 Day Ago mg-copper 1 [id number] ~09/26/21 capsule (PreserVision AREDS-2) cyanocobalamin (vitamin B-12) 500 5,000 mcg PO .qod 11/07/21 12/04/22 Unknown mcg tablet diltiazem HCl 120 mg capsule,24 120 mg PO DAILY #90 caps 04/23/22 12/04/22 Unknown hr,extended release diclofenac sodium 1 % topical gel 4 g topical QID #100 grams 07/02/22 12/04/22 Unknown (Voltaren Arthritis Pain) amoxicillin 500 mg tablet 2,000 mg PO ONCE #4 tabs 07/24/22 12/04/22 Unknown cholecalciferol (vitamin D3) 125 125 mcg PO DAILY 09/13/22 12/04/22 Unknown mcg (5,000 unit) tablet (Vitamin D3) acetaminophen 300 mg-codeine 30 mg 1 tab PO BID PRN pain #20 tabs 09/16/22 12/04/22 Unknown tablet furosemide 20 mg tablet 20 mg PO DAILY #30 tabs 10/03/22 12/04/22 Unknown apixaban 5 mg tablet (Eliquis) 5 mg PO BID #180 tabs 10/10/22 12/04/22 Unknown oxyquinoline 0.025 %-sodium lauryl See Rx Instructions vaginal 10/24/22 12/04/22 Unknown sulfate 0.01 % vaginal gel .COMPLEX #113.4 grams (Trimo-Arcos Jelly) losartan 50 mg tablet 50 mg PO QAM 11/18/22 12/04/22 Unknown metoprolol tartrate 100 mg tablet 100 mg PO BID #180 tabs 11/18/22 12/04/22 Unknown glucosamine sulf dipot 1 cap PO QAM 12/04/22 12/04/22 Unknown chlr,msm,chond 550 mg-C 30 mg-chela 1 mg capsule (Glucosamine Chondroitin) Past Medical History Medical History Arthritis Atrial fibrillation Degenerative joint disease of left hip Dyslipidemia History of breast cancer Right 10+ years ago s/p lumpectomy/radiation History of thyroid disease Remotely on medication- no issues since age 20s HTN (hypertension) Kidney disease Patient unaware, creatinine 1.26 on most recent labs 10/2022 Lumbar spondylolysis Macular degeneration Age related Mitral regurgitation Pacemaker Medtronic (a. fib), implanted 09/[address] Wood/[facility] [place] Sleep apnea Count not tolerate CPAP Venous insufficiency Exercise / Class Metabolic Activity III < 4 Walking/Shop/Light housework (uses walker) Past Family History Family History Daughter Family history of diabetes mellitus Grandfather Family history of diabetes mellitus Past Surgical History Surgical History H/O colonoscopy H/O esophagogastroduodenoscopy H/O partial mastectomy Right partial mastectomy with needle localization and right axillary sentinel lymph node biopsy 01/2012 History of appendectomy History of left cataract extraction History of right hip replacement Right JAYJAY (05/20/17): SAB at [facility] [place] History of right salpingo-oophorectomy History of tubal ligation Hx of right cataract extraction Nausea after anesthesia S/P appendectomy + RSO S/P tonsillectomy and adenoidectomy Past Anesthesia History No Hx of Anesthesia Complications and No Family Hx of Anesthesia Complications History of PONV No Hx of Motion Sickness and History of PONV (Postop nausea) Social History Smoking Status: Never smoker Do You Dip or Chew Tobacco: No Hx Alcohol Use: No Hx Substance Use: No substance use type: does not use Review of Systems Patient denies chest pain, shortness of breath, fever, chills, cough, wheezing, palpitations. Physical Exam Vital Signs VITALS BP 104/68 P 67 TEMP 98.7 SP02 96%RA RESP 18 PHYSICAL Full cervical extension range of motion. Full TMJ range of motion. TMD 3 finger breaths Mallampati Score 3 Dentition: lower partial Lungs: clear throughout to auscultation Cardiac: regular rate and rhythm, no murmurs noted Spine: normal Carotid arteries: negative bruit Extremities: non-pitting LE edema, wearing compression stockings Lab Results Anesthesia Preop Results Results Anesthesia Widget: WBC 7.89 K/ul (4.8-10.8) 10/29/22 Hgb 12.3 g/dl (12.0-16.0) 10/29/22 Hct 36.4 % (37.0-47.0) L 10/29/22 Plt 269 K/uL (130-400) 10/29/22 Na 139 mmol/L (136-145) 10/29/22 K 4.3 mmol/L (3.5-5.1) 10/29/22 Cl 108 mmol/L (98-107) H 10/29/22 CO2 23 mmol/L (21-32) 10/29/22 BUN 36 mg/dl (6-23) H 10/29/22 Creat 1.26 mg/dl (0.6-1.2) H 10/29/22 Glucose Level 101 mg/dl (70-99(Fasting)) H 10/29/22 PT 13.0 Seconds (9.0-12.0) H 10/29/22 PTT 34.3 Seconds (21.0-31.0) H 10/29/22 INR 1.2 (0.9-1.1) H 10/29/22 TSH 1.907 uIu/ml (0.300-4.500) 10/29/22 Urine Color Yellow 12/11/22 Urine Appearance Clear (Clear) 12/11/22 Urine pH 5.5 (4.5-7.5) 12/11/22 Urine Specific [place] 1.006 (1.000-1.030) 12/11/22 Urine Protein Negative (Negative) 12/11/22 Urine Glucose (UA) Negative (Negative) 12/11/22 Urine Ketones Negative (Negative) 12/11/22 Urine Blood Negative (Negative) 12/11/22 Urine Nitrite Negative (Negative) 12/11/22 Urine Bilirubin Negative (Negative) 12/11/22 Urine Urobilinogen Negative (Negative) 12/11/22 Urine Leukocyte Esterase 3+ (Negative) H 12/11/22 Urine WBC (Auto) 10-30 /hpf (0-5) H 12/11/22 Urine RBC (Auto) 0-4 /hpf (0-4) 12/11/22 Urine Hyaline Casts (Auto) 1-5 /lpf (0-5) 12/11/22 Urine Epithelial Cells (Auto) >30 /lpf (0-5) H 12/11/22 Urine Bacteria (Auto) Negative (Negative) 12/11/22 Blood Type A Positive 12/11/22 Antibody Screen NEGATIVE 12/11/22 Testing Laboratory Results Mildly elevated coags - pt taking Apixaban* Electrocardiogram Date: 10/29/22 A. fib at 69bpm. Low voltage QRS. NS TWA. No significant change compared to 05/15/22 per graduate engineer comparison. Chest X-Ray Date: 10/29/22 FINDINGS: An AP, portable, upright chest radiograph is compared to study dated 05/15/2022. The examination is degraded by portable technique and patient rotation. A 2-lead cardiac pacemaker is unchanged position. There is a hiatal hernia. The heart is enlarged noting atherosclerotic calcification of the thoracic aorta. The pulmonary vasculature is noncongested. Chronic interstitial thickening is similar to previous. There is bibasilar scarring/atelectasis. The lungs and pleural spaces are otherwise clear. No pneumothorax is seen. The skeletal structures are osteopenic. The bony thorax is grossly intact. IMPRESSION: Cardiomegaly and cardiac pacemaker without radiographic evidence of congestive failure. No airspace consolidation or large pleural effusion is identified. Echocardiogram Date: 10/04/22 EF 55-60%. No regional wall motion abnormalities.Moderate LAD/RAD. Moderate MR/TR. RVSP is normal. Other Testing Pacer check Date: 11/18/22 "interrogation today revealed normal longevity of 13.6 years. Normal lead function. 19% atrial pacing. Minimal ventricular pacing. Mostly atrial fibrillation with some borderline rate control." per EP visit 11/18/22 COVID-19 Risk Screen Screening Information COVID-19 Screen Date: 12/11/22 Exposure 21 Days Family/Household +COVID Last 21 Days: No Exposure 10 Days Any COVID Exposure Last 10 Days: No Symptoms Last 10 Days Experienced COVID Sx Last 10 Days: No + COVID 0-90 Days COVID + in Last 0-90 Days: No
[~2022-12-25 06:32] MED LIST changes: -ACET-24 PO; -ALEN70TA4 PO; -ASPI81TA28 PO; -CALC-393 PO; -CHOLCAP5 PO; -CYAN5000 PO; -FRRG PO; -GLUC250C PO; -KFL500 PO; -LOSA50TA6 PO; -LPR25 PO; +LR 500ML BOLUS, THEN 15ML/HR IV SCH; +LR 60ML/HR IV SCH; -MULT-190 PO; -MULT-506 PO; -NAPR1TAB48 PO; +ROPIVACAINE 0.5% HCL/PF 150 MG, BUPIVACAINE 0.75% MPF 20 ML, EPINEPHrine 0.15 MG, Ketor... INFIL SCH; -SIMV20TA5 PO; +TRANEXAMIC ACID 1,000 MG x 1 **For Topical Use TOP SCH; -ULT50X PO; +ceFAZolin 2000MG 2,000 MG/15 ML SYR IV SCH
--- NOTE | 2022-12-25 06:43 | History & Physical Bridge Note ---
Date of Service December 25, 2022 History & Physical Bridge Note I have examined the patient, reviewed the History & Physical and in the interval since the performance of the History & Physical I have noted the following changes of clinical significance:consent obtained/site verified.discussed possible cement use. no changes noted
[2022-12-25] MEDS ORDERED: MIDAZOLAM HCL 1 MG/ML 2ML VIAL ONE (07:19)
[2022-12-25] MEDS ORDERED: ATROPINE SULFATE 0.1 MG/ML 10ML SYR IV PRN (07:33)
[2022-12-25] MEDS ORDERED: fentaNYL citrate PF 100 MCG/2 ML VIAL IV PRN (07:33)
[2022-12-25] MEDS ORDERED: ePHEDrine sulfate 50 MG/ML AMP IV PRN (07:33)
[2022-12-25] MEDS ORDERED: ONDANSETRON INJ 2 MG/ML 2 ML VIAL IV PRN ×2 (07:33→13:10)
[2022-12-25] MEDS ORDERED: BUPIVACAINE 0.5 % 5 MG/1 ML PF 10ML VIAL ONE (07:33)
[2022-12-25] MEDS ORDERED: fentaNYL citrate PF 100 MCG/2 ML VIAL ONE (08:45)
[2022-12-25] MEDS ORDERED: ORTHO JOINT ANESTHETIC ONE (09:13)
[2022-12-25] MEDS ORDERED: PHENYLEPHRINE 100MCG/ML 5ML SYR ONE ×2 (09:53→10:11)
[2022-12-25] MEDS ORDERED: PROPOFOL IV EMULSION 10 MG/ML 20 ML VIAL IV ONE (10:11)
--- NOTE | 2022-12-25 11:11 | Post Operative Brief Note ---
Immediate Post Op Note v1 Date of Surgery December 25, 2022 Pre & Post Diagnosis Operation Date: 12/25/22 08:50 Pre-Op Diagnosis: Left Hip Degenerative Joint Disease Post-Op Diagnosis: Left Hip Degenerative Joint Disease I identified the patient and participated in the time-out.: Yes Procedure Operation Date: 12/25/22 08:50 Actual Procedures p Left Hip Total Hip Arthroplasty with Dual Mobility Cup--Cemented(Left) - Mike Bridges MD Surgeon Mike Bridges MD Instructional Support Assistant [facility] resident or fellow available Estimated Blood Loss 50 Findings Consistent with Post-Op Diagnosis Severe DJD Fluids See anesthesia report Complications None
--- NOTE | 2022-12-25 11:14 | Operative Report ---
Post Operative Report Pre & Post Diagnosis Operation Date: 12/25/22 08:50 Pre-Op Diagnosis: Left Hip Degenerative Joint Disease Post-Op Diagnosis: Left Hip Degenerative Joint Disease I identified the patient and participated in the time-out.: Yes Procedure Operation Date: 12/25/22 08:50 Actual Procedures p Left Hip Total Hip Arthroplasty with Dual Mobility Cup--Cemented(Left) - Mike Bridges MD Surgeon Mike Bridges MD Child Caregiver Private Home Estephania no resident or fellow available Estimated Blood Loss 50 Findings Consistent with Post-Op Diagnosis Severe DJD Fluids See operative anesthesia report Specimens Bone pathology Drains None Complications None Indications Excruciating left hip pain Description of Procedure Jacoby medically cleared female with intractable hip pain has a severe collapse of her femoral head proximal migration joint space narrowing. She has total hip on the other side. Due to her age and her bone mass that is appropriate for us to cement the femur and do a hybrid hip replacement. Procedure patient identified site verified consent verified antibiotics from his been given the patient was placed in the right lateral cubitus position left lower extremity prepped and draped use routine fashion. She was about a centimeter half short on that side. Posterior approach hip was carried out blunt dissection carried down to the fascia this was incised under direct vision Charnley retractor placed care taken back to protect the sciatic nerve and excellent exposure obtained. The short external rotators and the capsule were then opened and teed and the hip dislocated the femoral neck resected. Serial reaming was carried up to a 50 to 50 cup impacted in appropriate anteversion and inclination. The dual mobility liner was placed. He was then flexed internally rotated proximal femur. With a canal finder lateralizing rasp and broaching up to a size 4 then a size 4 cemented into position after 14 minutes everything was removed and trial reduction was carried out and a +7 head was best. Stability was excellent leg lengths are relatively equal. The wound was irrigated with Betadine Pulsavac TXA and then closed with #2 Vicryl 2-0 Vicryl and standstill clips. Summary of implants size 50 cup acetabular shell sector 30x6.5 screw dome cover 50x43 bipolar for standard cemented [place] stem 11 mm centralizer +7 head 43. EBL was 50 cc crystalloid per anesthesia bone pathology pending. DVT prophylaxis with her baseline medication Eliquis Carbon copy especially hospital chart I attest to the content of the Intraoperative Record and any orders documented therein. Any exceptions are noted below.
--- NOTE | 2022-12-25 11:26 | Post Operative Brief Note ---
Immediate Post Op Note v1 Date of Surgery December 25, 2022 Pre & Post Diagnosis Operation Date: 12/25/22 08:50 Pre-Op Diagnosis: Left Hip Degenerative Joint Disease Post-Op Diagnosis: Left Hip Degenerative Joint Disease I identified the patient and participated in the time-out.: Yes Procedure Operation Date: 12/25/22 08:50 Actual Procedures p Left Hip Total Hip Arthroplasty with Dual Mobility Cup--Cemented(Left) - Mike Bridges MD Surgeon Mike Bridges MD [facility]ified [facility] resident or fellow available Estimated Blood Loss 50 Findings Consistent with Post-Op Diagnosis
--- NOTE | 2022-12-25 11:33 | Orthopedic Progress Note ---
Date of Service December 25, 2022 Assessment & Plan (1) Status post hip replacement: Plan Status post left hip replacement doing well continue with care pathway. We will restart her blood thinner tomorrow. Subjective Postop check status post hybrid left total replacement cemented femur. Resting comfortably. Denies chest pain shortness of breath fever chills nausea vomiting or headache. Vital signs are stable she is afebrile. Physical Exam Physical Exam: Physical exam limited by spinal. Hip located wound dressing clean dry and in tact postop x-rays look excellent. Results & Data Vital Signs (Past 12 Hours) Vital Signs Temp Pulse Resp BP Pulse Ox O2 Del Method 12/25/22 07:02 36.8 C 82 20 115/57 L 97 Room Air Diagnostic Findings Lophlex: Hip replacements bilaterally.
--- NOTE | 2022-12-25 11:34 | Operative Report ---
Post Operative Report Pre & Post Diagnosis Operation Date: 12/25/22 08:50 Pre-Op Diagnosis: Left Hip Degenerative Joint Disease Post-Op Diagnosis: Left Hip Degenerative Joint Disease I identified the patient and participated in the time-out.: Yes Procedure Operation Date: 12/25/22 08:50 Actual Procedures p Left Hip Total Hip Arthroplasty with Dual Mobility Cup--Cemented(Left) - Mike Bridges MD Surgeon EDA Bridges MD Injection Molding Technician Estephania CARCAMO/no resident or fellow available Estimated Blood Loss 50 Findings Consistent with Post-Op Diagnosis see operative report Specimens see operative report Drains none Complications none Disposition Accompanied Patient To Recovery: Yes Indications This 87 year old female presented to the office with complaints of persisting left hip pain. She had tried conservative care measures without improvement. She elected to proceed with surgical intervention after being educated about potential risks and outcomes. Preoperative imaging was obtained. She did obtain medical and cardiac clearance prior to surgery. Description of Procedure The patient was administered a spinal anesthetic and then taken to the operating room where she was given sedation. She was prepped and draped in the usual sterile fashion. Please see Dr. Bridges's operative report for specifics of the procedure. I was present for the entire case from initial patient positioning through final wound closure. Assistance was provided in tissue retraction, hemostasis, trial implant placement, final implant placement, and final wound closure. The patient was taken to the recovery room in satisfactory condition. I attest to the content of the Intraoperative Record and any orders documented therein. Any exceptions are noted below.
--- NOTE | 2022-12-25 11:35 | XRay Report ---
XR pelvis 1-2V routine HISTORY: 87 years-old Female S/P LTHA left hip arthroplasty COMPARISON: 09/23/2022 TECHNIQUE: AP view of the pelvis FINDINGS: Unremarkable appearance of the right hip arthroplasty. Left hip arthroplasty demonstrates satisfactor y alignment. Overlying skin rachna are present along with expected postoperative soft tissue swellin g with deep tissue air. No acute fracture, dislocation or unexpected opaque foreign body. IMPRESSION: Left hip arthroplasty with expected postoperative changes. ACT 112: Negative or not required by law. The above report was generated using voice recognition software. It may contain grammatical, syntax o r spelling errors. Electronically signed by: Eddie Pierre M.D. 12/25/2022 11:33 AM
--- NOTE | 2022-12-25 11:35 | Discharge Summary ---
Date of Service December 25, 2022 Admission HPI Per Admitting Provider Severe osteoarthritis left hip. Left hip replacement hybrid cemented femur. Principal Diagnosis Severe osteoarthritis left hip portal duct is discharge summary side may not be narrowing overall about the look at the report Discharge Exam Physical exam limited by spinal. Hip located wound dressing clean dry and intac t postop x-rays look excellent. Discharge Data Allergies Allergy/AdvReac Type Severity Reaction Status Date / Time No Known Allergies Allergy Unknown Verified 12/25/22 06:53 Procedures Performed Operation Date: 12/25/22 08:50 Actual Procedures p Left Hip Total Hip Arthroplasty with Dual Mobility Cup--Cemented(Left) - Mike Bridges MD Hospital Course (1) Status post hip replacement: Plan Status post left hip replacement doing well continue with care pathway. We will restart her blood thinner tomorrow. Total Time Total Time Spent Total Time Spent (In Minutes): 10 Discharge Plan Discharge Items Patient Disposition: Home - Self-Care Reason For Visit: Left Hip Osteoarthritis Discharge Diagnosis: Same Activity: Per Instructions section Bathing: Keep incision dry Excercise/Sports: Wait until after follow-up appointment Driving/Machine Use Comment: No driving x6 weeks Weightbearing: Full weightbearing Non-emergency contact: Surgeon Call non-emergency contact if: your temperature is above 101.5, your wound has increased redness and your wound has increased drainage Follow-Up/Referrals: Johana Jasmine MD [Primary Care Provider] - Diet: Resume previous diet Addtl Attending Provider Instructions: DIET: * Resume previous diet. MEDICATIONS: * Please take your prescriptions as instructed at your pre-op appointment and/or see medication discharge instructions listed above. * If concerns develop, call your physician's office at . SPECIAL CARE INSTRUCTIONS: * Ice/Elevate as instructed. * Keep dressing clean, dry, intact. * Your surgical extremity may be discolored due to prepping agents used on the skin. A bluish-green tint is a normal variant and should not cause alarm. Call your doctor at [phone] if: * Temperature above 101 degrees * Pain not relieved by pain medicine ordered * There is increased drainage or redness from any incision * You have any unanswered questions, problems or concerns. FOLLOW UP VISIT: * If not already scheduled, please call the office at to schedule a follow-up appointment. Pending Studies at Discharge: Yes Studies:: Bone pathology Stand-Alone Forms: [facility] Prescriptions: No Action diclofenac sodium [Voltaren Arthritis Pain] 1 % gel 4 g topical QID Qty: 100 2RF Rx Instructions: apply to single knee, ankle, foot; for foot includes sole/toes/top of foot diltiazem HCl 120 mg capsule,extended release 24 hr 120 mg PO DAILY Qty: 90 3RF amoxicillin 500 mg tablet 2,000 mg PO ONCE Qty: 4 3RF Rx Instructions: 4 tabs 1 hour prior to procedure furosemide 20 mg tablet 20 mg PO DAILY Qty: 30 5RF Eliquis 5 mg tablet 5 mg PO BID Qty: 180 3RF acetaminophen-codeine 300-30 mg tablet 1 tab PO BID PRN (Reason: pain) Qty: 20 0RF Trimo-Arcos Jelly 0.025-0.01 % gel See Rx Instructions vaginal .COMPLEX Qty: 113.4 3RF Rx Instructions: apply 1/2 applicator full 2-3 times weekly. cholecalciferol (vitamin D3) [Vitamin D3] 125 mcg (5,000 unit) tablet 125 mcg PO DAILY losartan 50 mg tablet 50 mg PO QAM metoprolol tartrate 100 mg tablet 100 mg PO BID Qty: 180 2RF cyanocobalamin (vitamin B-12) 500 mcg tablet 5,000 mcg PO .qod Patient Comments: 5000 MCG PreserVision AREDS-2 250-90-40-1 mg Capsule 1 tab PO BID Glucosamine Chondroitin 550-30-1 mg Capsule 1 cap PO QAM Discharge Orders: Discharge Order (Routine); Ordered 12/25/22 Ordered By: Mike Bridges Admission Data Attending Provider: Mike Bridges Primary Care Provider: Johana Jasmine
--- NOTE | 2022-12-25 11:56 | Orthopedic Progress Note ---
Date of Service December 25, 2022 Assessment & Plan (1) Status post hip replacement: Plan Status post left hip replacement doing well continue with care pathway. We will restart her blood thinner tomorrow. Continue care pathway. Orthopedic Progress Note Resting comfortably. Denies chest pain shortness of breath fever chills nausea vomiting or headache. Neurovascular check still limited by spinal. Wound dressing clean dry and intact. X-rays look good. She alert and oriented. Continue care pathway.
--- NOTE | 2022-12-25 12:13 | Anesthesiology Progress Note ---
Date of Service December 25, 2022 Anesthesia Post Procedure Vital Signs Vital Signs: Temp Pulse Pulse Resp BP Pulse Ox O2 Del Method 12/25/22 12:10 65 18 114/57 L 97 Room Air 12/25/22 12:00 67 16 113/58 L 97 Room Air 12/25/22 11:50 74 23 105/55 L 96 Room Air 12/25/22 11:40 63 17 120/62 100 Oxymask 12/25/22 11:30 66 13 115/63 100 Oxymask 12/25/22 11:23 97.3 F L 69 12 122/57 L 99 Oxymask 12/25/22 07:02 98.2 F 82 20 115/57 L 97 Room Air O2 Flow Rate 12/25/22 12:10 12/25/22 12:00 12/25/22 11:50 12/25/22 11:40 5 12/25/22 11:30 5 12/25/22 11:23 5 12/25/22 07:02 Transfer of Care Handoff Completed per policy Notes Mental Status: alert / awake / arousable and participated in evaluation Patient Amnestic to Procedure: Yes Nausea / Vomiting: adequately controlled Pain: adequately controlled Airway Patency, RR, SpO2: stable & adequate BP & HR: stable & adequate Hydration State: stable & adequate Neuraxial Anesthesia: was administered and sensory block is resolving Anesthetic Complications: no major complications apparent and Pt Satisfied with anesthetic care
[2022-12-25] MEDS ORDERED: bisacodyL 10 MG SUPP PR PRN (13:10)
[2022-12-25] MEDS ORDERED: NALOXONE HCL 0.4 MG/1 ML VIAL/CARP IV PRN (13:10)
[2022-12-25] MEDS ORDERED: ALUMINUM/MAGNESIUM SUSP 30 ML UDC PO PRN (13:10)
[2022-12-25] MEDS ORDERED: MAGNESIUM HYDROXIDE SUSP 30 ML UDC PO PRN (13:10)
[2022-12-25] MEDS ORDERED: METOCLOPRAMIDE HCL INJ 5 MG/ML 2 ML VIAL IV PRN (13:10)
[2022-12-25] MEDS ORDERED: oxyCODONE HCL IR 5 MG TAB (IMMEDIATE RELEASE) PO PRN (13:10)
[2022-12-25] MEDS ORDERED: VANCOMYCIN CONSULT ACTIVE PRN (13:10)
[2022-12-25] MEDS ORDERED: HYDROmorphone INJ 0.5 MG/0.5 ML SYR IV PRN (13:10)
[2022-12-25] MEDS ORDERED: diphenhydrAMINE 50 MG/ML VIAL IV PRN (13:10)
[2022-12-25] MEDS ORDERED: SODIUM CHLORIDE 0.9% 1000ML 1,000 ML IV SCH (13:30)
[2022-12-25] MEDS: KETOROLAC TROMETHAMINE 15 MG/ML VIAL IV SCH ×2 (13:51→19:55)
[2022-12-25] MEDS: ACETAMINOPHEN 500 MG TAB PO SCH ×2 (13:51→21:29)
[2022-12-25] MEDS ORDERED: VANCOMYCIN HCL 1,000 MG in SODIUM CHLORIDE 0.9% 500 ML IV SCH (14:00)
--- NOTE | 2022-12-25 14:20 | Orthopedic Progress Note ---
Date of Service December 25, 2022 Assessment & Plan (1) Status post hip replacement: Plan Status post left hip replacement doing well continue with care pathway. We will restart her blood thinner tomorrow. Continue care pathway. Admission and Anticipated Discharge Date Admission Date: December 25, 2022 Orthopedic Progress Note Resting comfortably. Denies chest pain shortness of breath fever chills nausea vomiting or headache. Neurovascular check still limited by spinal. Wound dressing clean dry and intact. X-rays look good. She alert and oriented. Cont inue care pathway.
--- NOTE | 2022-12-25 14:25 | Orthopedic Progress Note ---
Date of Service December 25, 2022 Assessment & Plan (1) Status post hip replacement: Plan: Continue care pathway. Plan Status post left total placement to get out of bed as soon as her route legs wake up more. Postural and discretion protection. Continue care pathway. Start anticoagulant tomorrow. Admission and Anticipated Discharge Date Admission Date: December 25, 2022 Orthopedic Progress Note Resting comfortably not very hungry denies any issues. Pain is well managed. Vital signs stable afebrile. Wound dressing clean dry and intact. Neurovascular check femoral sciatic nerve is starting to normalize. Has active extension of both ankles and toes plantarflexion of both ankles and toes and intact quad.
[2022-12-25] MEDS: FERROUS GLUCONATE 324 MG TAB PO SCH (16:31)
[2022-12-25] MEDS: ASCORBIC ACID 500 MG TAB PO SCH (16:31)
[2022-12-25] MEDS: ceFAZolin 2000MG 2,000 MG/15 ML SYR IV SCH (17:52)
[2022-12-25] MEDS: CEROVITE ADV FORMULA TAB PO SCH (19:53)
[2022-12-25] MEDS: DOCUSATE SODIUM 100 MG CAP PO SCH (19:53)
[2022-12-25] MEDS: METOPROLOL TARTRATE 100 MG TAB PO SCH (19:54)
[2022-12-25] MEDS ORDERED: SENNA 8.6 MG TAB PO SCH (21:00)
[2022-12-26] MEDS: ceFAZolin 2000MG 2,000 MG/15 ML SYR IV SCH (01:05)
[2022-12-26] MEDS: KETOROLAC TROMETHAMINE 15 MG/ML VIAL IV SCH ×2 (01:06→07:55)
[2022-12-26] MEDS: ACETAMINOPHEN 500 MG TAB PO SCH (05:15)
[2022-12-26 07:05] LABS: Basophils # (auto) 0.02 K/uL (0-0.2); Basophils % (auto) 0.2 %; Hemoglobin 9.8 g/dl (12.0-16.0); Immature Granulocytes # (auto) 0.04 K/uL (0.01-0.20); Immature Granulocytes % (auto) 0.3 %; Lymphocytes # (auto) 1.42 K/uL (1.2-3.4); Lymphocytes % (auto) 11.9 %; Mean Corpuscular Hemoglobin 31.5 pg (25.0-34.0); Mean Corpuscular Hgb Conc 33.8 g/dL (32.0-36.0); Mean Corpuscular Volume 93.2 fL (80.0-100.0); Mean Platelet Volume 10.9 fL (9.4-12.4); Monocytes # (auto) 0.88 K/uL (0.11-0.59); Monocytes % (auto) 7.4 %; Neutrophils # (auto) 9.54 K/uL (1.40-6.50); Neutrophils % (auto) 80.2 %; Platelet Count 202 K/uL (130-400); RDW Coefficient of Variation 12.3 % (11.5-14.5); RDW Standard Deviation 42.1 fL (36.4-46.3); Red Blood Count 3.11 M/uL (4.20-5.40)
[2022-12-26 07:16] LABS: Calcium 9.2 mg/dl (8.6-10.3); Creatinine Clr Calc Pharmacy 18.3 ml/min; Est GFR (African American) 28.6 ml/min; Est GFR (Non-African American) 24.7 ml/min; Potassium 4.3 mmol/L (3.5-5.1)
--- NOTE | 2022-12-26 07:38 | Orthopedic Progress Note ---
Date of Service December 26, 2022 Assessment & Plan (1) History of left hip replacement: Plan Home services start Eliquis today mobilize dressing change discharge. Admission and Anticipated Discharge Date Admission Date: December 25, 2022 Orthopedic Progress Note Postop day #1 status post left total replacement. She is resting comfortably. She is very happy. She notes that her pain is markedly improved. She notes that she can walk now without discomfort. Vital signs are stable she is afebrile. Hematocrit stable at 29. Neurovascular check femoral sciatic nerve is normal. Wound dressing clean and dry. Assessment status post left total replacement dressing change later this morning by PA discharge to home after PT OT services.
[2022-12-26] MEDS: ASCORBIC ACID 500 MG TAB PO SCH (07:54)
[2022-12-26] MEDS: DOCUSATE SODIUM 100 MG CAP PO SCH (07:55)
[2022-12-26] MEDS: FERROUS GLUCONATE 324 MG TAB PO SCH (07:55)
[2022-12-26] MEDS: METOPROLOL TARTRATE 100 MG TAB PO SCH (07:56)
[2022-12-26] MEDS: CEROVITE ADV FORMULA TAB PO SCH (07:56)
[2022-12-26] MEDS ORDERED: dexAMETHasone 10 MG in SYRINGE 0 ML IV SCH (08:00)
[2022-12-26] MEDS ORDERED: APIXABAN 5 MG TABLET PO SCH (09:00)
[2022-12-26] MEDS ORDERED: FUROSEMIDE 20 MG TAB PO SCH (09:00)
[2022-12-26] MEDS ORDERED: MULTIVITAMIN TAB PO SCH (09:00)
[2022-12-26] MEDS ORDERED: LOSARTAN POTASSIUM 50 MG TAB PO SCH (09:00)
[2022-12-26] MEDS ORDERED: dilTIAZem HCL 120 MG CAPCR PO SCH (09:00)
--- NOTE | 2022-12-26 09:03 | Orthopedic Progress Note ---
Date of Service December 26, 2022 Assessment & Plan (1) Status post hip replacement: Plan: The patient was educated regarding today's findings. I did check with the case management nurse and she will be going to [facility] later today. Her son will be providing transport. With the assistance of her nurse, the patient was rolled on her side. The patient's dressing was changed by me. A new pressure dressing consisting of gauze, ABDs, and Medipore tape was applied. This can stay in place for the next 2 weeks until she is seen in the office. Her Eliquis was resumed this morning. Continue twice daily. Prescription for oxycodone was sent to her pharmacy. She has used this in the past for chronic pain and has done well with it. Maintain total hip precautions. Call with any other concerns. Written discharge instructions were provided. Admission and Anticipated Discharge Date Admission Date: December 25, 2022 Subjective This 87-year-old female is seen today in her room. She is 1 day status post left hip total hip arthroplasty. She states she is doing well. She has no pain. She has just finished eating her breakfast. She states she is going to [facility] today. She denies any chest pain, shortness of breath, nausea, vomiting, or abdominal pain. She denies any numbness or tingling in her leg. No other complaints. Review of Systems Review of Systems: Unchanged from yesterday Physical Exam Physical Exam: General: Well-developed, well-nourished, elderly female, in no acute distress. Laying in bed. Alert and oriented. Conversive. Skin: Warm and dry with fair turgor. Postsurgical dressing is in place on her left hip. Upon removal, there is scant dried blood on her innermost dressings. There is no active bleeding. [place] are intact. Wound edges are well approximated. No erythema, warmth, drainage, swelling, or ecchymosis. Musculoskeletal: The patient has intact motor function of her hip, knee, and ankle. Neurologic: Gross sensation is intact across all aspects of the left leg by soft touch. Results & Data Vital Signs (Past 12 Hours) Vital Signs Temp Pulse Resp BP Pulse Ox O2 Del Method 12/26/22 07:19 36.7 C 85 16 101/60 94 Room Air 12/26/22 03:06 36.8 C 69 16 104/68 94 Room Air 12/25/22 23:00 36.6 C 62 16 105/65 94 Room Air Laboratory Results CBC obtained this morning shows a white count of 11.9. H&H of 9.8 and 29.0. No rmal platelets. Sodium 138, potassium 4.3, chloride 109. BUN of 40 with creatinine 1.82. Glucose 171.
== END 2022-12-26 11:17 ==
LOC: ASU 06:32 → 3E 06:32